=== PATIENT | female | born 1970 | race Caucasian/White ===

== ENCOUNTER 2020-07-22 09:23 | Outpatient (REF) | payer OTHER, MEDICAID, SELFPAY ==
--- NOTE | 2020-07-22 09:43 | XR_ITS ---
EXAMINATION: XR PELVIS CLINICAL INFORMATION: Pain. COMPARISON: None TECHNIQUE: AP view of the pelvis. FINDINGS: The bones and soft tissues are normal. No fracture. Sacroiliac and hip joints are normal. Pubic symphysis is normal. There are pelvic phleboliths. No abnormal soft tissue calcifications. XR/XR pelvis 1-2V IMPRESSION: Normal pelvis.
== END 2020-07-22 09:24 | disposition home or self-care (01) ==
LOC: HO.HOSX 09:23
PROVIDERS: PCP Nurse Practitioner Family; Visit Provider Orthopaedic Surgery
DX: M25.552 Pain in left hip (principal); M25.559 Pain in unspecified hip; M70.62 Trochanteric bursitis, left hip; E11.9 Type 2 diabetes mellitus without complications; R10.2 Pelvic and perineal pain
CPT/HCPCS: 20610; 72170; 99212; J1100

== ENCOUNTER → 2020-09-12 13:34 | Outpatient (BNVA) | payer OTHER, MEDICAID, SELFPAY | PROVIDERS: PCP Nurse Practitioner Family; Visit Provider Orthopaedic Surgery | DX: M25.561 Pain in right knee (principal); M25.562 Pain in left knee; M79.7 Fibromyalgia; E11.9 Type 2 diabetes mellitus without complications | CPT/HCPCS: 20610; 99212; J1100 ==

== ENCOUNTER 2021-03-25 16:21 | Emergency (ER) | payer OTHER, MEDICAID, SELFPAY ==
[2021-03-25 16:33] VITALS: BP 119/76; PULSE 120; RESP 16; TEMP 36.8; O2SAT 98; BMI 40.6
[2021-03-25 16:57] LABS: Glucose Urine UA NEG (NEG); Leukocyte Esterase Urine 3+ (NEG); Nitrite Urine NEG (NEG); Specific Gravity - Urine 1.025 (1.005-1.025); UACC Culture Trigger YES; Urine Blood NEG (NEG); Urine Ketones NEG (NEG); Urine Protein NEG (NEG-TRACE)
[2021-03-25 16:59] LABS: Appearance Urine HAZY; Color Urine YELLOW
[2021-03-25 17:10] LABS: Amorphous Sediment Urine TRACE /LPF; Bacteria Urine 2+ /LPF; Mucus Urine 3+ /LPF; RBC Urine 0 /HPF (0); Squamous Epithelial Cell Urine 2+ /LPF; WBC Urine 30-49 /HPF (0-4)
== END 2021-03-25 20:07 | disposition left against medical advice (07) ==
PROVIDERS: Emergency Provider Emergency Medicine
DX: R10.9 Unspecified abdominal pain (principal)
CPT/HCPCS: 81001; 87086; 99282; 99283

== ENCOUNTER 2021-03-26 13:18 | Emergency (ER) | payer OTHER, SELFPAY ==
--- NOTE | ~2021-03-26 | CT_ITS ---
EXAMINATION: CT ABDOMEN AND PELVIS WITH CONTRAST CLINICAL INFORMATION: Clinical concern for bowel obstruction pain. Distention. COMPARISON: Portions of a previous study 03/08/20 TECHNIQUE: Multidetector volumetric images were obtained from the superior aspect of the liver through the pubic symphysis following administration 85 mL of Omnipaque 350 intravenous contrast. Sagittal and coronal reformatted images were obtained on the technologist's workstation. Oral contrast: No This CT examination was performed using dose optimization techniques as appropriate, variously including the following: *Automated exposure control *Adjustment of mA and/or kV according to patient size (this includes techniques or standardized protocols for targeted exams where dose is matched to indication/reason for exam; i.e. 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 There are some scattered loops of small bowel gas. No disproportionate small bowel dilation. No evidence of pneumoperitoneum. LUNG BASES: No suspicious abnormality in the visualized portions of the chest. There may be tiny amounts of gas within some of the right internal mammary veins. This is likely due to the contrast administration LIVER, GALLBLADDER, AND BILIARY TREE: The liver contour is smooth. There is diffuse fatty change. No suspicious focal lesion. The gallbladder is likely surgically absent. No biliary dilation. PANCREAS: Within normal limits SPLEEN: Normal ADRENAL GLANDS: Normal KIDNEYS AND URETERS: There is no dilation of the urinary collecting system on either side. The renal contours are abnormal. There is cortical loss greatest in the lateral upper left kidney. There are bilateral renal calcifications. The largest in the medial interpolar right kidney measures 1.0 cm and is 13.5 cm from the skin. No suspicious renal mass. The nephrograms are symmetric BLADDER: The bladder is not well-distended. No focal abnormality GASTROINTESTINAL TRACT: Gas and fecal residue throughout the colon. No definite pericolonic fat stranding. The appendix is normal. There is no small bowel dilation. No suspicious omental or mesenteric mass. ABDOMINAL WALL: No significant hernia is appreciated. LYMPH NODES: There are no measurably enlarged abdominal or pelvic lymph nodes. There is no free intraperitoneal fluid. VASCULAR: There is no abdominal aortic aneurysm. The portal vein enhances. PELVIC VISCERA: The uterus appears within normal limits. No suspicious adnexal mass or collection. OSSEOUS STRUCTURES: No suspicious focal lesion. CT/CT abdomen pelvis w con IMPRESSION: No evidence of small bowel obstruction or abscess. Multiple bilateral renal calculi. Bilateral renal cortical scarring. Fatty liver
[2021-03-26 14:05] VITALS: O2SAT 100; BMI 33.4
[2021-03-26 14:21] LABS: MANUAL DIFF FLAG NO
[2021-03-26 14:22] LABS: Glucose Urine UA 250 MG/DL (NEG); Leukocyte Esterase Urine 1+ (NEG); Nitrite Urine NEG (NEG); Specific Gravity - Urine >= 1.030 (1.005-1.025); UACC Culture Trigger YES; Urine Blood NEG (NEG); Urine Ketones NEG (NEG); Urine Protein 1+ MG/DL (NEG-TRACE)
[2021-03-26 14:22] LABS: Basophils Absolute Auto 0.1 X10*3/uL (0.0-0.2); Basophils Percent Auto 0.5 % (0-2); Eosinophils Absolute Auto 0.3 X10*3/uL (0.0-0.4); Eosinophils Percent Auto 2.4 % (0-4); Hematocrit 41.7 % (37-47); Hemoglobin 13.8 g/dl (12.0-16.0); Imm Gran Abs Auto 0.06 X10*3/uL (0.00-0.03); Imm Gran Pct Auto 0.5 % (0.0-0.4); Lymphocytes Absolute Auto 2.1 X10*3/uL (1.2-4.9); Lymphocytes Percent Auto 16.7 % (20-40); Mean Corpuscular HGB Conc 33.1 g/dl (31.0-35.0); Mean Corpuscular Hemoglobin 28.3 pg (27.0-33.0); Mean Corpuscular Volume 85.5 fL (80-98); Mean Platelet Volume 12.3 fL (9.4-12.3); Monocytes Absolute Auto 0.8 X10*3/uL (0.1-1.2); Monocytes Percent Auto 6.1 % (2-11); Neutrophils Absolute Auto 9.4 X10*3/uL (2.0-8.3); Neutrophils Percent Auto 73.8 % (45-73); Platelet Count 202 X10*3/uL (160-400); Red Blood Count 4.88 X10*6/uL (4.20-5.50); Red Cell Distribution Width 13.4 % (11.0-16.0); White Blood Count 12.7 X10*3/uL (4.8-10.8)
[2021-03-26 14:23] LABS: Appearance Urine CLOUDY; Color Urine YELLOW
--- NOTE | 2021-03-26 14:31 | ED_ITS ---
HPI - Abdominal Pain General Chief Complaint: Abdominal Pain Stated Complaint: stomach pains Time Seen by Provider: 03/26/21 14:04 Source: patient Mode of arrival: ambulatory Limitations: language barrier (Bahraini speaking only, certified court/medical interpreter used) History of Present Illness HPI narrative: 51-year-old female who presents emergency department for evaluation of abdominal pain x4 days. Patient states that the pain started 4 days prior came on gradually got progressively worse. She describes the pain as a constant burning sensation and points to her entire abdomen when asked to localize the pain. She states the pain is 10/10 at its worst. She had similar pain 6 months prior for this pain. She denied fever or chills. She states that she had constant nausea and vomited at least 4 times yesterday and today. She has had 2 days of loose, watery diarrheal stool, 5 stools per day with no blood in the stools. She states that she is feeling very weak and fatigued. She denied chest pain, shortness of breath, dyspnea on exertion, frequency, urgency or dysuria. The patient has not had a COVID-19 infection during this pandemic. She has not had a COVID-19 vaccination. The patient states that the last time she was hospitalized for abdominal pain she did receive morphine without any allergic reaction or side effects. Related Data Home Medications Medication Instructions Recorded Confirmed insulin glargine 100 unit/mL 20 unit SUBCUT DAILY 07/22/20 07/22/20 subcutaneous solution (Lantus U-100 Insulin) metformin 500 mg tablet 500 mg PO DAILY 07/22/20 07/22/20 insulin glargine 100 unit/mL 10 unit SUBCUT BID 09/12/20 subcutaneous solution (Lantus U-100 Insulin) Previous Rx's Medication Instructions Recorded morphine 15 mg immediate release 15 mg PO Q4-6H PRN #10 tab 03/26/21 tablet Allergies Allergy/AdvReac Type Severity Reaction Status Date / Time acetaminophen [Percocet] Allergy Unknown Unknown Verified 09/12/20 13:38 oxycodone [From PERCOCET] Allergy Unknown N/V Verified 09/12/20 13:38 tramadol Allergy Unknown Unknown Verified 09/12/20 13:38 Review of Systems Review of Systems Yes all other systems are reviewed and are negative Physical Exam Vital Signs: Vital Signs: Last Vital Signs Temp 97.7 F 03/26/21 15:03 Pulse 101 H 08/08/21 15:03 Resp 20 03/26/21 15:03 BP 115/69 03/26/21 15:03 Pulse Ox 95 03/26/21 15:03 Body Mass Index 33.4 Const: General: cooperative and no acute distress Nutritional Appearance: obese Orientation/consciousness: oriented to person and oriented to place Limitations: no limitations HENMT: Head: Yes normal to inspection, Yes normocephalic and Yes atraumatic Ears: external ears normal General nose exam: Normal external nose present Face and sinus: Yes normal facial exam Mouth: Normal oral and palatal mucosa present Throat: Yes posterior oropharynx normal Eyes: General: appearance normal, both eyes and all related structures Pupils: Equal, round and reactive pupils present Neck: Neck: Yes normal visual inspection, Yes no lymphadenopathy, Yes trachea midline and Yes supple Chest: Chest palpation & inspection: normal inspection of the chest and normal palpation of entire chest wall Resp: Effort & Inspection: normal respiratory effort and able to speak in complete sentences Auscultation: clear to auscultation bilaterally Cardio: Rate: regular rate Rhythm: regular rhythm Heart sounds: S1 normal heart sound present, S2 normal heart sound present and no murmurs GI: Inspection: Yes distended and Yes obesity Palpation (GI): Soft to palpation, Tenderness to palpation present (GI) in the epigastrum (Moderate), in the LLQ (Moderate) and suprapubicly (Moderate) and no guarding Auscultation: High-pitched bowel sounds present : General: Yes no CVA tenderness Back/Spine/Pelvis: Back: no CVA tenderness Skin: General skin exam: no rashes or lesions noted Neuro: General: oriented to person and oriented to place Cranial nerves: Y es CN's II-XII intact bilaterally and Yes Equal, round and reactive pupils present Cognition (Neuro): normal cognition Motor exam (neuro): 5/5 motor strength present throughout Extrem: General: Yes normal to inspection Psych: Appearance: grossly normal Speech and movement: Normal speech and movement present Affect: normal affect Attitude: cooperative Thought process: Normal thought process present Thought content: Normal thought content present Course Course Course Narrative: 51-year-old female who presents emergency department for evaluation of 4 days of abdominal pain associated with nausea vomiting and diarrhea. Patient's abdominal pain was diffuse. The patient does also appear to be distended. I order laboratory evaluation, CT scan of the abdomen pelvis with IV contrast. The patient was treated with morphine 4 mg IV and Zofran 4 mg IV. She was also given normal saline IV x1 L. 1606: The patient's laboratory evaluation [place] [address]. Patient has an elevated glucose of 383 and a low bicarb of 19. She has a slight elevation in her AST, ALT and alk-phos of 36, 32 and 125. Urine microscopic revealed 0 rbc's, 50-75 WBCs, 3+ squamous cells, 3+ bacteria. This is a contaminated specimen and I do not think that she has urinary tract infection as the cause for pain. The patient had only minimal relief of her pain with IV morphine therefore she was ordered to get a 2nd dose of morphine 4 mg IV. 1636: The patient's CT abd/pelvis was unremarkable and did not reveal a clear cause for the patient's pain. Her tenderness is now more localized in the epiga stric area and I supsect that her pain is secondary to gastritis. She was ordered to take Maalox 30 cc, Visc Lido 10 cc and Donnatol 10 cc. She will be disharged with an Rx for Morphine 4 mg every 4-6 hours as needed for pain. MDM - Abdominal Pain Lab Data Result diagrams: 03/26/21 14:17 03/26/21 14:17 Labs: Lab Results 03/26/21 03/26/21 03/26/21 Range/Units 14:12 14:17 14:17 WBC 12.7 H (4.8-10.8) X10*3/uL RBC 4.88 (4.20-5.50) X10*6/uL Hgb 13.8 (12.0-16.0) g/dl Hct 41.7 (37-47) % MCV 85.5 (80-98) fL MCH 28.3 (27.0-33.0) pg MCHC 33.1 (31.0-35.0) g/dl RDW 13.4 (11.0-16.0) % Plt Count 202 (160-400) X10*3/uL MPV 12.3 (9.4-12.3) fL Immature Gran % (Auto) 0.5 H (0.0-0.4) % Neut % (Auto) 73.8 H (45-73) % Lymph % (Auto) 16.7 L (20-40) % Edgar % (Auto) 6.1 (2-11) % Eos % (Auto) 2.4 (0-4) % Baso % (Auto) 0.5 (0-2) % Lymph # (Auto) 2.1 (1.2-4.9) X10*3/uL Edgar # (Auto) 0.8 (0.1-1.2) X10*3/uL Eos # (Auto) 0.3 (0.0-0.4) X10*3/uL Baso # (Auto) 0.1 (0.0-0.2) X10*3/uL Abs Immat Gran (auto) 0.06 H (0.00-0.03) X10*3/uL Absolute Neuts (auto) 9.4 H (2.0-8.3) X10*3/uL Absolute Nucleated RBC 0.000 (0.0-0.012) X10*3/uL Nucleated RBC % (auto) 0.0 (0.0-0.2) /100WBC Sodium 136 (135-145) mmol/L Potassium 4.6 (3.3-5.1) mmol/L Chloride 106 (96-108) mmol/L Carbon Dioxide 19 L (22-29) mmol/L Anion Gap 16 (12-20) BUN 12 (9-16) mg/dL Creatinine 0.93 (0.5-1.4) mg/dL Estim Creat Clear Calc 87.4 Estimated GFR > 60 POC Glucose (60-115) mg/dL Random Glucose 383 H* (60-115) mg/dL Calcium 8.9 (8.4-10.2) mg/dL Total Bilirubin 0.5 (0.0-1.0) mg/dL AST 36 H (5-31) U/L ALT 32 H (0-31) U/L Alkaline Phosphatase 125 H (39-117) U/L Total Protein 7.5 (6.5-8.0) g/dL Albumin 4.1 (3.5-5.0) g/dL Lipase 50 (8-78) U/L Urine Color YELLOW Urine Appearance CLOUDY Urine pH 6.0 (5.0-8.0) Ur Specific [place] >= 1.030 H (1.005-1.025) Urine Protein 1+ H (NEG-TRACE) MG/DL Urine Glucose (UA) 250 H (NEG) MG/DL Urine Ketones NEG (NEG) MG/DL Urine Blood NEG (NEG) Urine Nitrite NEG (NEG) Ur Leukocyte Esterase 1+ H (NEG) Urine RBC 0 (0) /HPF Urine WBC 50-75 H (0-4) /HPF Ur Squamous Epith Cells 3+ /LPF Urine Bacteria 2+ /LPF Coronavirus (PCR) (Negative) Influenza Type A (PCR) (Negative) Influenza Type B (PCR) (Negative) RSV RNA Qual (PCR) (Negative) 03/26/21 03/26/21 Range/Units 14:36 16:22 WBC (4.8-10.8) X10*3/uL RBC (4.20-5.50) X10*6/uL Hgb (12.0-16.0) g/dl Hct (37-47) % MCV (80-98) fL MCH (27.0-33.0) pg MCHC (31.0-35.0) g/dl RDW (11.0-16.0) % Plt Count (160-400) X10*3/uL MPV (9.4-12.3) fL Immature Gran % (Auto) (0.0-0.4) % Neut % (Auto) (45-73) % Lymph % (Auto) (20-40) % Edgar % (Auto) (2-11) % Eos % (Auto) (0-4) % Baso % (Auto) (0-2) % Lymph # (Auto) (1.2-4.9) X10*3/uL Edgar # (Auto) (0.1-1.2) X10*3/uL Eos # (Auto) (0.0-0.4) X10*3/uL Baso # (Auto) (0.0-0.2) X10*3/uL Abs Immat Gran (auto) (0.00-0.03) X10*3/uL Absolute Neuts (auto) (2.0-8.3) X10*3/uL Absolute Nucleated RBC (0.0-0.012) X10*3/uL Nucleated RBC % (auto) (0.0-0.2) /100WBC Sodium (135-145) mmol/L Potassium (3.3-5.1) mmol/L Chloride (96-108) mmol/L Carbon Dioxide (22-29) mmol/L Anion Gap (12-20) BUN (9-16) mg/dL Creatinine (0.5-1.4) mg/dL Estim Creat Clear Calc Estimated GFR POC Glucose 267 H (60-115) mg/dL Random Glucose (60-115) mg/dL Calcium (8.4-10.2) mg/dL Total Bilirubin (0.0-1.0) mg/dL AST (5-31) U/L ALT (0-31) U/L Alkaline Phosphatase (39-117) U/L Total Protein (6.5-8.0) g/dL Albumin (3.5-5.0) g/dL Lipase (8-78) U/L Urine Color Urine Appearance Urine pH (5.0-8.0) Ur Specific [place] (1.005-1.025) Urine Protein (NEG-TRACE) MG/DL Urine Glucose (UA) (NEG) MG/DL Urine Ketones (NEG) MG/DL Urine Blood (NEG) Urine Nitrite (NEG) Ur Leukocyte Esterase (NEG) Urine RBC (0) /HPF Urine WBC (0-4) /HPF Ur Squamous Epith Cells /LPF Urine Bacteria /LPF Coronavirus (PCR) NEGATIVE (Negative) Influenza Type A (PCR) NEGATIVE (Negative) Influenza Type B (PCR) NEGATIVE (Negative) RSV RNA Qual (PCR) NEGATIVE (Negative) Discharge Plan Discharge Clinical Impression: Gastritis Qualifiers: Gastritis type: unspecified gastritis Chronicity: acute Gastritis bleeding: without bleeding Qualified Code(s): K29.00 - Acute gastritis without bleeding Patient Disposition: Home, Self-Care Instructions: Gastritis (ED) Additional Instructions: Take Tylenol 500 mg pills, 2 pills every 4-6 hours as needed for pain. For pain not relieved by Tylenol take Morphine 15 mg pills, 1 pill every 4-6 hours as needed for pain. Follow up with your doctor in 2 days. Return to the ED if your symptoms get worse or if you develop any new symptoms that are concerning to you. Prescriptions: New morphine 15 mg tablet 15 mg PO Q4-6H PRN (Reason: pain) Qty: 10 RF: 0 No Action Lantus U-100 Insulin 100 unit/mL solution 20 unit subcut DAILY RF: 0 metformin 500 mg tablet 500 mg PO DAILY RF: 0 PMFSH Past Medical History PMFSH Narrative: Past medical history: Diabetes, hypertension, high cholesterol, asthma, fibromyalgia. Past surgical history: Cholecystectomy, C- section x4, carpal tunnel release, breast reduction-elective. Social history: The patient is . She denies tobacco, alcohol and drug use. Medical History Chronic asthma Diabetes Fibromyalgia Hypertension Surgical History History of carpal tunnel release Hx of breast reduction, elective Social History Social History (Updated 09/12/20 @ 13:38 by Tita Belle Marissa) Alcohol intake: never Advance Directives: No Advance Directives Information Provided: Yes Current occupational status: unemployed Current occupation: right handed
[2021-03-26 14:33] LABS: Bacteria Urine 2+ /LPF; RBC Urine 0 /HPF (0); Squamous Epithelial Cell Urine 3+ /LPF; WBC Urine 50-75 /HPF (0-4)
[2021-03-26] MEDS: 0.9 % Sodium Chloride 1,000 ML 999 ML IV (14:49)
[2021-03-26] MEDS: Morphine Sulfate 4 MG/ML CARTRIDGE IVPUSH ×2 (14:49→16:16)
[2021-03-26 14:53] LABS: Alanine Aminotransferase 32 U/L (0-31); Albumin Level 4.1 g/dL (3.5-5.0); Alkaline Phosphatase 125 U/L (39-117); Anion Gap 16 (12-20); Aspartate Amino Transferase 36 U/L (5-31); Bilirubin Total 0.5 mg/dL (0.0-1.0); Blood Urea Nitrogen 12 mg/dL (9-16); Calcium 8.9 mg/dL (8.4-10.2); Carbon Dioxide 19 mmol/L (22-29); Chloride 106 mmol/L (96-108); Creatinine Clr Calc Pharmacy 87.4; Estimated Glomerular Filt Rate > 60; Glucose Random 383 mg/dL (60-115); Potassium 4.6 mmol/L (3.3-5.1); Sodium 136 mmol/L (135-145); Total Protein 7.5 g/dL (6.5-8.0)
[2021-03-26 15:03] VITALS: BP 115/69; PULSE 101; RESP 20; TEMP 36.5; O2SAT 95
[2021-03-26 15:06] LABS: Lipase 50 U/L (8-78)
[2021-03-26 15:39] LABS: Influenza A PCR NEGATIVE (Negative); Influenza B PCR NEGATIVE (Negative); Resp Syncy Virus RNA Qual PCR NEGATIVE (Negative); SARS COV2 PCR INHOUSE NEGATIVE (Negative)
[2021-03-26] MEDS: iohexoL 350 MG/ML 100 ML INFUS..BTL IV (15:50)
[2021-03-26 16:25] LABS: Glucose, Whole Blood 267 mg/dL (60-115)
[2021-03-26] MEDS: Magnesium Hydrox/Alum Hydrox 30 ML ORAL.SUSP PO (17:02)
[2021-03-26] MEDS: PHENobarb/Hyoscy/Atropine/Scop 10 ML ELIXIR PO (17:03)
[2021-03-26] MEDS: Lidocaine HCl Viscous 2 % 15 ML SOLUTION 10 ML PO (17:04)
== END 2021-03-26 17:42 | disposition home or self-care (01) ==
PROVIDERS: Emergency Provider Emergency Medicine Emergency Medical Services
DX: K29.00 Acute gastritis without bleeding (principal); Z20.822 Contact with and (suspected) exposure to COVID-19; R53.1 Weakness; E11.9 Type 2 diabetes mellitus without complications; I10 Essential (primary) hypertension; Z79.4 Long term (current) use of insulin
CPT/HCPCS: 0241U; 36415; 74177; 80053; 81001; 82947; 83690; 85025; 96361; 96374; 96375; 96376; 99284; J2270; J2405; Q9967

== ENCOUNTER 2021-05-08 19:12 | Emergency (ER) | payer OTHER, SELFPAY ==
[2021-05-08 19:43] VITALS: BP 166/78; PULSE 106; RESP 16; TEMP 36.5; O2SAT 98; BMI 41.1
--- NOTE | 2021-05-08 21:19 | ED_ITS ---
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 Mode of arrival: ambulatory Limitations: no limitations History of Present Illness MD elicited complaint: headache and migraine Pertinent past history: migraines Onset (ago): hour(s) (6 ) Onset description: gradually Location: left Severity: similar to previous episodes Quality & Timing: throbbing Exacerbating factors: light and noise Relieving factors: rest and dark room Context: occurred at rest Associated symptoms: nausea and photophobia Treatments prior to arrival: migraine medication Related Data Home Medications Medication Instructions Recorded Confirmed insulin glargine 100 unit/mL 20 unit SUBCUT DAILY 07/22/20 07/22/20 subcutaneous solution (Lantus U-100 Insulin) metformin 500 mg tablet 500 mg PO DAILY 07/22/20 07/22/20 insulin glargine 100 unit/mL 10 unit SUBCUT BID 09/12/20 subcutaneous solution (Lantus U-100 Insulin) Previous Rx's Medication Instructions Recorded morphine 15 mg immediate release 15 mg PO Q4-6H PRN #10 tab 03/26/21 tablet tlvhowdnfi-hbqnzrjxymian-uahtnvny 1 tab PO Q6H PRN #20 tab 05/08/21 50 mg-325 mg-40 mg tablet cyclobenzaprine 10 mg tablet 10 mg PO TID PRN #14 tab 05/08/21 ondansetron 4 mg disintegrating 4 mg PO Q8H PRN #20 tab 05/08/21 tablet Allergies Allergy/AdvReac Type Severity Reaction Status Date / Time acetaminophen [Percocet] Allergy Unknown Unknown Verified 05/08/21 19:50 oxycodone [From PERCOCET] Allergy Unknown N/V Verified 05/08/21 19:50 tramadol Allergy Unknown Unknown Verified 05/08/21 19:50 Review of Systems Review of Systems: Constitutional : No Fever, No Chills, No Fatigue ENT/Mouth : No sore throat, No Rhinorrhea Eyes: No Eye Pain, No Swelling, No Redness Cardiovascular : No Chest Pain, No SOB, No Dyspnea on Exertion Respiratory : No Cough, No Sputum Gastrointestinal : pos Nausea, No Vomiting, No Diarrhea, No abdominal Pain Genitourinary : No Dysuria, No Urinary Frequency, No Hematuria, Musculoskeletal : No joint pain, No Myalgias, No Joint Swelling Skin : No Skin Lesions, No rash Neuro : No Weakness, No Numbness, No Dizziness, positive Headache Psych : No Anxiety/Panic, No Depression Heme/Lymph: No Bruising, No Bleeding,No Lymphadenopathy Endocrine : No Polyuria, No Polydipsia All other systems reviewed and are negative [facility] Past Medical History Attestation statement: The following information was validated with the patient. Medical History Chronic asthma Diabetes Fibromyalgia Hypertension Migraines Surgical History History of carpal tunnel release Hx of breast reduction, elective Social History Social History Alcohol intake: never Patient Tobacco Use Status: Never used Tobacco Advance Directives: No Advance Directives Information Provided: No Current occupational status: unemployed Current occupation: right handed Physical Exam Vital Signs: Vital Signs: Last Vital Signs Temp 97.7 F 05/08/21 19:43 Pulse 106 H 05/08/21 19:43 Resp 16 05/08/21 19:43 BP 166/78 H 05/08/21 19:43 Pulse Ox 98 05/08/21 19:43 Body Mass Index 41.1 Appearance: Alert. Oriented X3. No acute distress. Eyes: Pupils equal, round and reactive to light. photophobia ENT: Pharynx normal. Neck: Normal inspection. Neck supple. no meningeal signs CVS: Normal heart rate and rhythm. Pulses normal. Respiratory: No respiratory distress. Breath sounds normal. Abdomen: Soft and nontender. Skin: Skin warm and dry. Normal skin color. Normal skin turgor. Extremities: No lower extremity edema. No calf ttp Neuro: Oriented X 3. No motor deficit. No sensory deficit. Course Course Course Narrative: feels better stable for DC MDM - Headache MDM Narrative Medical decision making narrative: 51 yo female with DM and headaches comes in with c/o migraine on left side - at this time no fevers, GCS 15, typical migraine will treat with medications and reassess. given typical migraine doubt SAH, no fevers doubt [employer] infection. Lab Data Labs: Lab Results 05/08/21 Range/Units 21:31 POC Glucose 273 H (60-115) mg/dL Discharge Plan Discharge Clinical Impression: Migraine Qualifiers: Migraine type: without aura Status migrainosus presence: without status migrainosus Intractability: not intractable Qualified Code(s): G43.009 - Migraine without aura, not intractable, without status migrainosus Patient Disposition: Home, Self-Care Instructions: Migraine Headache (ED) Additional Instructions: return to ED for any worsening symptoms or concerns Prescriptions: New cyclobenzaprine 10 mg tablet 10 mg PO TID PRN (Reason: muscle spasm) Qty: 14 RF: 0 aeyrycdbkr-hfvtvdpmqdnfp-eejf 50-325-40 mg tablet 1 tab PO Q6H PRN (Reason: pain) Qty: 20 RF: 0 ondansetron 4 mg tablet,disintegrating 4 mg PO Q8H PRN (Reason: nausea and vomiting) Qty: 20 RF: 0 No Action morphine 15 mg tablet 15 mg PO Q4-6H PRN (Reason: pain) Qty: 10 RF: 0 Lantus U-100 Insulin 100 unit/mL solution 20 unit subcut DAILY RF: 0 metformin 500 mg tablet 500 mg PO DAILY RF: 0 Stand Alone Forms: Work/School Release Print Language: Vietnamese
[2021-05-08 21:37] LABS: Glucose, Whole Blood 273 mg/dL (60-115)
[2021-05-08] MEDS: Metoclopramide HCl 10 MG/2 ML VIAL IM (21:51)
[2021-05-08] MEDS: diphenhydrAMINE HCL 25 MG TABLET 50 MG PO (21:51)
[2021-05-08] MEDS: Ketorolac Tromethamine 60 MG/2 ML VIAL IM (21:52)
[2021-05-08 22:49] VITALS: BP 168/94; PULSE 92; RESP 18; TEMP 36.8; O2SAT 97
[2021-05-08] MEDS: Cyclobenzaprine HCl 10 MG TABLET PO (23:03)
[2021-05-08] MEDS: Butalb/Acetamin/Caff 50/325/40 TABLET 1 TAB PO (23:03)
[2021-05-09 00:20] VITALS: BP 119/76; PULSE 86; RESP 17; TEMP 37.4; O2SAT 98
[2021-05-09 01:46] VITALS: BP 124/79; PULSE 82; RESP 17; O2SAT 98
== END 2021-05-09 01:48 | disposition home or self-care (01) ==
PROVIDERS: Emergency Provider Emergency Medicine
DX: G43.009 Migraine without aura, not intractable, without status migrainosus (principal); Z79.899 Other long term (current) drug therapy
CPT/HCPCS: 82947; 96372; 99284; J1885; J2765; J3030; Q0163

== ENCOUNTER 2021-05-31 07:27 | Outpatient (REF) | payer OTHER, SELFPAY ==
--- NOTE | ~2021-05-31 | XR_ITS ---
EXAMINATION: XR HIP, LEFT CLINICAL INFORMATION: Left hip pain. COMPARISON: Pelvic radiograph dated 07/22/2020. TECHNIQUE: Two views of the left hip. FINDINGS: There is no acute fracture or dislocation. Mild spurring is seen off of the lateral margin of the greater trochanter. The left hip joint and left hemipelvis are intact. There is no acute fracture or dislocation. The soft tissues are unremarkable. XR/XR hip LT min 2V IMPRESSION: Mild degenerative spurring off of the greater trochanter without significant change. No acute abnormality.
== END 2021-05-31 07:28 | disposition home or self-care (01) ==
LOC: HO.HOSX 07:27
PROVIDERS: Visit Provider Physician Assistant
DX: M70.62 Trochanteric bursitis, left hip (principal)
CPT/HCPCS: 20610; 73502; 99212; J1020

== ENCOUNTER 2021-06-13 09:08 | Outpatient (RCR) | payer OTHER, SELFPAY ==
--- NOTE | 2021-06-13 11:00 | MHC.PT.EP ---
[facility] [place] Office [place] Office [place] Office [address] Fay Mcneill [address] [phone] F: [phone] F: [phone] F: [phone] F: [phone] Physical Therapy Plan of Care Date of Evaluation: Date of Surgery: N/A Diagnosis: trochanteric bursitis, left hip Assessment: pt w/ difficulty contributing to subjective part of evaluation. pt's symptoms appear to have lumbar component as pt has reduced sensation throughout L LE and poor discriminatory touch of L foot/ankle. Potential working PT diagnoses include lumbar radiculopathy and L trochanteric bursitis. pt presents to physical therapy with pain, decreased range of motion, decreased strength, impaired functional mobility, impaired postural awareness, and gait deviations. pt is a fair candidate for skilled PT due to age, potential remediation of impairments, typical disease/condition progression and prognosis, comorbidities, and motivation. pt would benefit from tailored strengthening and stretching exercise program, functional training, gait training, postural re-training, neuromuscular re-education, modalities as needed for pain, equipment safety demonstration. Frequency and Duration: The patient will be seen 2x/wk for 6 wks Short Term Goals: pt will be I w/ HEP to promote self-management of condition. pt will improve L hip abduction by 1 MMT grade to promote neutral pelvis w/ ambulation and weight bearing activities. pt will demo proper sitting posture w/ lumbar roll to promote neutral spine w/ seated ADLs. Fci Goals: pt will report a statistically significant improvement in self-reported outcome measure, LEFI, to promote return to PLOF. pt will report <4/10 L hip pain w/ sit to stand transfer to promote improved tolerance for functional mobility. Treatment Plan: Modalities to reduce pain, spasms and effusion. Manual therapy to restore motion and function. Therapeutic exercise to improve strength and flexibility. Neuromuscular re-education for posture and balance. Therapeutic activities to return to functional activities of daily living. Electronically signed by: Vickie Mcdaniel PT, DPT Please sign and return to therapist. Thank you for your referral.
--- NOTE | 2021-07-03 14:31 | MHC.PT.DC ---
[facility] [place] Office [place] Office [place] Office [address] Fay Mcneill [address] [facility] [phone] F: [phone] F: [phone] F: [phone] F: [phone] Physical Therapy Discharge Report Diagnosis: trochanteric bursitis, left hip Date of Surgery: N/A Date of Evaluation: 06/13/21 Date of Discharge: 07/03/21 Treatments to Date: 1 Cancellations to Date: 0 No Shows to Date: 3 Discharge Status: Visit Non-compliance Discharge Summary: The patient had difficulty during subjective aspect of evaluation. She was very vague in regards to what reproduces her pain, where the pain is located, and what helps alleviate the pain. She displayed significant facial grimacing and guarding throughout the objective portion of the evaluation. She only scheduled 3 of the recommended 8 PT visits and no showed all of them. She is discharged from this physical therapy plan of care due to visit non-compliance. Electronically signed by: Vickie Mcdaniel PT, DPT Please sign and return to therapist. Thank you for your referral.
== END 2021-07-03 14:31 | disposition home or self-care (01) ==
LOC: HO.PT 09:08
PROVIDERS: PCP Nurse Practitioner Family; Visit Provider Physician Assistant
DX: M70.62 Trochanteric bursitis, left hip (principal)
CPT/HCPCS: 97162

== ENCOUNTER 2021-09-30 08:52 | Emergency (ER) | payer OTHER, SELFPAY ==
[2021-09-30] VITALS (7 sets, daily range): BP systolic 92–129; BP diastolic 52–80; PULSE 83–100; RESP 18–20; TEMP 36.4–36.6; O2SAT 98–99; BMI 40.8
--- NOTE | ~2021-09-30 | CT_ITS ---
EXAMINATION: CT ABDOMEN AND PELVIS WITH CONTRAST CLINICAL INFORMATION: Epigastric pain. COMPARISON: Portions of a previous study 03/26/21 TECHNIQUE: Multidetector volumetric images were obtained from the superior aspect of the liver through the pubic symphysis following administration 85 mL of Omnipaque 350 intravenous contrast. Sagittal and coronal reformatted images were obtained on the technologist's workstation. Oral contrast: No This CT examination was performed using dose optimization techniques as appropriate, variously including the following: *Automated exposure control *Adjustment of mA and/or kV according to patient size (this includes techniques or standardized protocols for targeted exams where dose is matched to indication/reason for exam; i.e. extremities or head) *Use of iterative reconstruction technique DLP: 921 mGy-cm FINDINGS: LUNG BASES: No suspicious abnormality in the visualized lower chest LIVER, GALLBLADDER, AND BILIARY TREE: The liver contour is smooth. There is generalized fatty change. No suspicious focal lesion. The gallbladder is not identified and may be surgically absent. There is no biliary dilation. PANCREAS: No mass or localized peripancreatic fat stranding. SPLEEN: Within normal limits ADRENAL GLANDS: No suspicious abnormality. The adrenals are relatively small. KIDNEYS AND URETERS: There is minimal prominence of the intrarenal collecting system and ureter on each side. There are numerous bilateral calculi. The largest calculus on the right measures 0.9 cm and is 12.9 cm from the skin. The largest calculus on the left is in the lower pole and measures 0.3 cm and is 16 cm from the skin. The renal contours are irregular with areas of cortical scarring. There is some mild nonspecific perinephric fat stranding. There are numerous pelvic calcifications. These are likely phleboliths. It would be difficult to exclude a punctate distal ureteral calculus. BLADDER: The bladder is not well-distended. No definite abnormality GASTROINTESTINAL TRACT: No localized pericolonic fat stranding. The appendix is normal. There is no small bowel dilation. The stomach is not well evaluated. ABDOMINAL WALL: No significant hernia is appreciated. LYMPH NODES: There are no measurably enlarged abdominal or pelvic lymph nodes. VASCULAR: There is no abdominal aortic aneurysm. The portal vein enhances. There is narrowing of the left common femoral vein and right common femoral vein which could be physiologic. PELVIC VISCERA: No suspicious abnormality OSSEOUS STRUCTURES: No suspicious abnormality. CT/CT abdomen pelvis w con IMPRESSION: There is nonspecific perinephric stranding. Small bilateral renal calculi. Minimal nonspecific fullness of the urinary collecting systems. No abscess or bowel obstruction. Suspect previous cholecystectomy. Fatty change in liver. Fleischner guidelines were followed.
--- NOTE | 2021-09-30 11:15 | ECG_ITS ---
Test Reason : ABDOMINAL PAIN Blood Pressure : / mmHG Vent. Rate : 091 BPM Atrial Rate : 091 BPM P-R Int : 158 ms QRS Dur : 098 ms QT Int : 392 ms P-R-T Axes : 049 028 037 degrees QTc Int : 482 ms Normal sinus rhythm Prolonged QT Abnormal ECG When compared with ECG of 08-MAR-2020 09:37, No significant change was found Referred By: Ryann Gutierrez Electronically Signed By:Aram Bhatti
--- NOTE | 2021-09-30 11:17 | ED_ITS ---
HPI - Abdominal Pain General Chief Complaint: Abdominal Pain Stated Complaint: abd pain Time Seen by Provider: 09/30/21 11:15 History of Present Illness HPI narrative: Patient is a 51-year-old female presents today with having abdominal pain in the epigastric area not associated with chest pain or shortness of breath. No Motrin no Aleve. Has a history of diabetes not affected with food. The pain is dull in nature and has been ongoin for about 4 days. No change in bowel movement. No dizziness. No chest pain or shortness of breath. No fever no chills. Noted change in urination. Passing gas bowel movements normal. No history of abdominal surgery in the past. Positive history of diabetes Related Data Home Medications Medication Instructions Recorded Confirmed insulin glargine 100 unit/mL 20 unit SUBCUT DAILY 07/22/20 07/22/20 subcutaneous solution (Lantus U-100 Insulin) metformin 500 mg tablet 500 mg PO DAILY 07/22/20 07/22/20 insulin glargine 100 unit/mL 10 unit SUBCUT BID 09/12/20 subcutaneous solution (Lantus U-100 Insulin) Previous Rx's Medication Instructions Recorded morphine 15 mg immediate release 15 mg PO Q4-6H PRN #10 tab 03/26/21 tablet cnblyvoydh-clgorivxpksmv-umjqyjry 1 tab PO Q6H PRN #20 tab 05/08/21 50 mg-325 mg-40 mg tablet cyclobenzaprine 10 mg tablet 10 mg PO TID PRN #14 tab 05/08/21 ondansetron 4 mg disintegrating 4 mg PO Q8H PRN #20 tab 05/08/21 tablet Allergies Allergy/AdvReac Type Severity Reaction Status Date / Time acetaminophen [Percocet] Allergy Unknown Unknown Verified 05/31/21 10:27 oxycodone [From PERCOCET] Allergy Unknown N/V Verified 05/31/21 10:27 tramadol Allergy Unknown Unknown Verified 05/31/21 10:27 Review of Systems Review of Systems No fever no chills no cough no congestion or upper respiratory symptoms No diaphoresis Positive abdominal pain All system reviewed otherwise negative Yes all other systems are reviewed and are negative Physical Exam Vital Signs: Vital Signs: Last Vital Signs Temp 98 F 09/30/21 09:06 Pulse 96 09/30/21 14:38 Resp 20 09/30/21 13:11 BP 129/57 L 02/12/22 14:38 Pulse Ox 99 09/30/21 13:52 BMI result Body Mass Index 40.8 Appearance: Alert. Oriented X3. No acute distress. Eyes: Pupils equal, round and reactive to light. ENT: Pharynx normal. Neck: Normal inspection. Neck supple. No lymph nodes noted. No crepitus CVS: Normal heart rate and rhythm. Pulses normal. Normal S1 and S2 Respiratory: No respiratory distress. Breath sounds normal. No Wheezing. No rales Abdomen: Soft and nontender. No rigidity. No distention. good BS x4 Skin: Skin warm and dry. Normal skin color. Normal skin turgor. Extremities: No lower extremity edema. Neurovascular intact to all extremities. No Lacerations. No Rash Neuro: Oriented X 3. No motor deficit. No sensory deficit. Moving all extermities. No slurred speech MDM - Abdominal Pain MDM Narrative Medical decision making narrative: Patient positive abdominal pain in the epigastric area. EKG showed a sinus pattern heart rate was 80 there is no acute ST segment changes patient's EKG is same as prior. Patient's lipase approximately 90 no evidence of pancreatitis patient LFT is baseline. CT scan of the abdomen is currently pending. Medical Records Attestation: I reviewed the patient's medical records. Lab Data Attestation: I reviewed the patient's lab results. Result diagrams: 09/30/21 12:03 09/30/21 15:16 Labs: Lab Results 09/30/21 09/30/21 09/30/21 Range/Units 12:03 15:12 15:16 WBC 9.3 (4.8-10.8) X10*3/uL RBC 4.99 (4.20-5.50) X10*6/uL Hgb 13.9 (12.0-16.0) g/dl Hct 41.8 (37.0-47.0) % MCV 83.8 (80.0-98.0) fL MCH 27.9 (27.0-33.0) pg MCHC 33.3 (31.0-35.0) g/dl RDW 13.2 (11.0-16.0) % Plt Count TNP MPV 12.7 H (9.4-12.3) fL Immature Gran % (Auto) 0.4 (0.0-0.4) % Neut % (Auto) 60.2 (45-73) % Lymph % (Auto) 25.7 (20-40) % [place] % (Auto) 7.9 (2-11) % Eos % (Auto) 5.3 H (0-4) % Baso % (Auto) 0.5 (0-2) % Lymph # (Auto) 2.4 (1.2-4.9) X10*3/uL [place] # (Auto) 0.7 (0.1-1.2) X10*3/uL Eos # (Auto) 0.5 H (0.0-0.4) X10*3/uL Baso # (Auto) 0.1 (0.0-0.2) X10*3/uL Abs Immat Gran (auto) 0.04 H (0.00-0.03) X10*3/uL Absolute Neuts (auto) 5.6 (2.0-8.3) x10*3/uL Absolute Nucleated RBC 0.000 (0.0-0.012) X10*3/uL Nucleated RBC % (auto) 0.0 (0.0-0.2) /100WBC Smear Tech's Comments VERIFIED Sodium 138 (135-145) mmol/L Potassium 4.6 (3.3-5.1) mmol/L Chloride 106 (96-108) mmol/L Carbon Dioxide 25 (22-29) mmol/L Anion Gap 12 (12-20) BUN 9 (9-16) mg/dL Creatinine 0.80 (0.5-1.4) mg/dL Estim Creat Clear Calc 98.7 Estimated GFR > 60 Random Glucose 265 H (60-115) mg/dL Calcium 8.6 (8.4-10.2) mg/dL Total Bilirubin 0.4 (0.0-1.0) mg/dL AST 64 H (5-31) U/L ALT 46 H (0-31) U/L Alkaline Phosphatase 140 H (39-117) U/L Total Protein 6.6 (6.5-8.0) g/dL Albumin 3.8 (3.5-5.0) g/dL Lipase 89 H (8-78) U/L Urine Color YELLOW Urine Appearance CLOUDY Urine pH 6.0 (5.0-8.0) Ur Specific [place] 1.020 (1.005-1.025) Urine Protein NEG (NEG-TRACE) MG/DL Urine Glucose (UA) 500 H (NEG) MG/DL Urine Ketones NEG (NEG) MG/DL Urine Blood TRACE (NEG) Urine Nitrite POS H (NEG) Ur Leukocyte Esterase 1+ H (NEG) Urine RBC 1-4 (0) /HPF Urine WBC 15-29 H (0-4) /HPF Ur Squamous Epith Cells 1+ /LPF Urine Bacteria 3+ /LPF Urine Mucus TRACE /LPF Acetone, Qual (Negative) 09/30/21 Range/Units 15:16 WBC (4.8-10.8) X10*3/uL RBC (4.20-5.50) X10*6/uL Hgb (12.0-16.0) g/dl Hct (37.0-47.0) % MCV (80.0-98.0) fL MCH (27.0-33.0) pg MCHC (31.0-35.0) g/dl RDW (11.0-16.0) % Plt Count MPV (9.4-12.3) fL Immature Gran % (Auto) (0.0-0.4) % Neut % (Auto) (45-73) % Lymph % (Auto) (20-40) % [place] % (Auto) (2-11) % Eos % (Auto) (0-4) % Baso % (Auto) (0-2) % Lymph # (Auto) (1.2-4.9) X10*3/uL [place] # (Auto) (0.1-1.2) X10*3/uL Eos # (Auto) (0.0-0.4) X10*3/uL Baso # (Auto) (0.0-0.2) X10*3/uL Abs Immat Gran (auto) (0.00-0.03) X10*3/uL Absolute Neuts (auto) (2.0-8.3) x10*3/uL Absolute Nucleated RBC (0.0-0.012) X10*3/uL Nucleated RBC % (auto) (0.0-0.2) /100WBC Smear Tech's Comments Sodium (135-145) mmol/L Potassium (3.3-5.1) mmol/L Chloride (96-108) mmol/L Carbon Dioxide (22-29) mmol/L Anion Gap (12-20) BUN (9-16) mg/dL Creatinine (0.5-1.4) mg/dL Estim Creat Clear Calc Estimated GFR Random Glucose (60-115) mg/dL Calcium (8.4-10.2) mg/dL Total Bilirubin (0.0-1.0) mg/dL AST (5-31) U/L ALT (0-31) U/L Alkaline Phosphatase (39-117) U/L Total Protein (6.5-8.0) g/dL Albumin (3.5-5.0) g/dL Lipase (8-78) U/L Urine Color Urine Appearance Urine pH (5.0-8.0) Ur Specific [place] (1.005-1.025) Urine Protein (NEG-TRACE) MG/DL Urine Glucose (UA) (NEG) MG/DL Urine Ketones (NEG) MG/DL Urine Blood (NEG) Urine Nitrite (NEG) Ur Leukocyte Esterase (NEG) Urine RBC (0) /HPF Urine WBC (0-4) /HPF Ur Squamous Epith Cells /LPF Urine Bacteria /LPF Urine Mucus /LPF Acetone, Qual Negative (Negative) Discharge Plan Discharge Clinical Impression: Abdominal pain Patient Disposition: Still a Patient Prescriptions: No Action morphine 15 mg tablet 15 mg PO Q4-6H PRN (Reason: pain) Qty: 10 0RF Rx Instructions: The patient may ask for partial fill cyclobenzaprine 10 mg tablet 10 mg PO TID PRN (Reason: muscle spasm) Qty: 14 0RF pppnkrdznj-jlxypubctokub-gpyd 50-325-40 mg tablet 1 tab PO Q6H PRN (Reason: pain) Qty: 20 0RF ondansetron 4 mg tablet,disintegrating 4 mg PO Q8H PRN (Reason: nausea and vomiting) Qty: 20 0RF Lantus U-100 Insulin 100 unit/mL solution 20 unit subcut DAILY 0RF metformin 500 mg tablet 500 mg PO DAILY 0RF PMFSH Past Medical History Medical History Chronic asthma Diabetes Fibromyalgia Hypertension Migraines Surgical History History of carpal tunnel release Hx of breast reduction, elective Social History Social History Alcohol intake: never Patient Tobacco Use Status: Never used Tobacco Advance Directives: No Advance Directives Information Provided: Yes Current occupational status: unemployed Current occupation: right handed
[2021-09-30 12:09] LABS: Eosinophils Absolute Auto 0.5 X10*3/uL (0.0-0.4); Eosinophils Percent Auto 5.3 % (0-4); Hemoglobin 13.9 g/dl (12.0-16.0); Imm Gran Abs Auto 0.04 X10*3/uL (0.00-0.03); Imm Gran Pct Auto 0.4 % (0.0-0.4); Lymphocytes Absolute Auto 2.4 X10*3/uL (1.2-4.9); MANUAL DIFF FLAG SCAN; Mean Corpuscular Volume 83.8 fL (80.0-98.0); Neutrophils Percent Auto 60.2 % (45-73); PLT CLUMP 1; SCAN SMEAR FLAG 1
[2021-09-30 12:11] LABS: Basophils Absolute Auto 0.1 X10*3/uL (0.0-0.2); Basophils Percent Auto 0.5 % (0-2); Hematocrit 41.8 % (37.0-47.0); Lymphocytes Percent Auto 25.7 % (20-40); Mean Corpuscular HGB Conc 33.3 g/dl (31.0-35.0); Mean Corpuscular Hemoglobin 27.9 pg (27.0-33.0); Mean Platelet Volume 12.7 fL (9.4-12.3); Monocytes Absolute Auto 0.7 X10*3/uL (0.1-1.2); Monocytes Percent Auto 7.9 % (2-11); Neutrophils Absolute Auto 5.6 x10*3/uL (2.0-8.3); Red Blood Count 4.99 X10*6/uL (4.20-5.50); Red Cell Distribution Width 13.2 % (11.0-16.0)
[2021-09-30 12:28] LABS: White Blood Count 9.3 X10*3/uL (4.8-10.8)
[2021-09-30 12:30] LABS: SLIDE REVIEW VERIFIED
--- NOTE | 2021-09-30 12:32 | PC.NURSE ---
unable to get iv. meds given as soon as iv started.
[2021-09-30] MEDS: ondansetron HCL 4 MG/2 ML VIAL IVPUSH (12:33)
[2021-09-30] MEDS: Magnesium Hydrox/Alum Hydrox 30 ML ORAL.SUSP PO (12:33)
[2021-09-30] MEDS: 0.9 % Sodium Chloride 1,000 ML 999 ML IV ×2 (12:33→13:55)
[2021-09-30] MEDS: HYDROmorphone HCl 0.5 MG/0.5 ML SYRINGE IVPUSH ×2 (13:10→14:37)
--- NOTE | 2021-09-30 13:11 | PC.NURSE ---
Ok to give dilaudid, ,BP soft per Dr Gutierrez, will order additonal IV fluids Phelbotomy called for hemolyzed labs
--- NOTE | 2021-09-30 14:29 | PC.NURSE ---
iv hung at 1355 after 1st bag complete
[2021-09-30 15:33] LABS: Appearance Urine CLOUDY; Color Urine YELLOW; Glucose Urine UA 500 MG/DL (NEG); Leukocyte Esterase Urine 1+ (NEG); Nitrite Urine POS (NEG); UACC Culture Trigger YES; Urine Blood TRACE (NEG); Urine Ketones NEG (NEG); Urine Protein NEG (NEG-TRACE)
[2021-09-30 15:36] LABS: Acetone, serum QL Negative (Negative)
[2021-09-30 15:43] LABS: Bacteria Urine 3+ /LPF; Mucus Urine TRACE /LPF; Squamous Epithelial Cell Urine 1+ /LPF
[2021-09-30 15:46] LABS: Alanine Aminotransferase 46 U/L (0-31); Albumin Level 3.8 g/dL (3.5-5.0); Alkaline Phosphatase 140 U/L (39-117); Anion Gap 12 (12-20); Aspartate Amino Transferase 64 U/L (5-31); Bilirubin Total 0.4 mg/dL (0.0-1.0); Blood Urea Nitrogen 9 mg/dL (9-16); Calcium 8.6 mg/dL (8.4-10.2); Carbon Dioxide 25 mmol/L (22-29); Chloride 106 mmol/L (96-108); Creatinine Clr Calc Pharmacy 98.7; Estimated Glomerular Filt Rate > 60; Glucose Random 265 mg/dL (60-115); Lipase 89 U/L (8-78); Potassium 4.6 mmol/L (3.3-5.1); Sodium 138 mmol/L (135-145); Total Protein 6.6 g/dL (6.5-8.0)
[2021-09-30] MEDS: iohexoL 350 MG/ML 100 ML INFUS..BTL IV (16:13)
[2021-09-30] MEDS: Nitrofurantoin Monohyd/M-Cryst 100 MG CAPSULE PO (16:57)
--- NOTE | 2021-09-30 17:54 | ECG_ITS ---
Test Reason : ABD PAIN Blood Pressure : / mmHG Vent. Rate : 086 BPM Atrial Rate : 086 BPM P-R Int : 164 ms QRS Dur : 100 ms QT Int : 398 ms P-R-T Axes : 028 007 019 degrees QTc Int : 476 ms Normal sinus rhythm with sinus arrhythmia Normal ECG When compared with ECG of 30-SEP-2021 11:34, No significant change was found Referred By: Avni Brady Electronically Signed By:Aram Bhatti
[2021-09-30 19:52] LABS: Troponin-I High Sensitivity < 3.5 ng/L (<3.5-17.0)
== END 2021-09-30 20:21 | disposition home or self-care (01) ==
PROVIDERS: Emergency Medicine Emergency Medical Services; Emergency Provider Emergency Medicine
DX: N39.0 Urinary tract infection, site not specified (principal); R10.9 Unspecified abdominal pain; E11.9 Type 2 diabetes mellitus without complications; I10 Essential (primary) hypertension; Z79.4 Long term (current) use of insulin
CPT/HCPCS: 36415; 74177; 80053; 81001; 82009; 83690; 84484; 85025; 87086; 87088; 87186; 93005; 96361; 96374; 96375; 96376; 99284; J1170; J2405; Q9967

== ENCOUNTER → 2021-11-13 12:01 | Outpatient (BNVA) | payer OTHER, SELFPAY | PROVIDERS: PCP Internal Medicine; Visit Provider Orthopaedic Surgery | DX: M79.7 Fibromyalgia (principal); M25.561 Pain in right knee; M25.562 Pain in left knee; M54.16 Radiculopathy, lumbar region | CPT/HCPCS: 20610; 99212; J1100 ==

== ENCOUNTER 2021-12-13 20:49 | Emergency (ER) | payer OTHER, SELFPAY ==
--- NOTE | 2021-12-13 21:58 | PC.NURSE ---
called from triage, no answer multiple call outs
== END 2021-12-13 23:12 | disposition left against medical advice (07) ==
LOC: HO.ED 23:11
PROVIDERS: Emergency Provider Emergency Medicine; PCP Internal Medicine
DX: M54.9 Dorsalgia, unspecified (principal)

== ENCOUNTER 2021-12-14 08:13 | Emergency (ER) | payer OTHER, SELFPAY ==
[2021-12-14 08:27] VITALS: BP 121/85; PULSE 89; RESP 20; TEMP 36.6; O2SAT 97; BMI 42.0
--- NOTE | 2021-12-14 08:56 | ED.GENADULT ---
HPI - General Adult General Chief complaint: Back Pain/Injury Stated complaint: back pain Time Seen by Provider: 12/14/21 08:56 Source: patient Mode of arrival: ambulatory Limitations: no limitations History of Present Illness HPI narrative: Patient is a 51 year old female presenting to the emergency department today with back pain. Patient states that she has had left sided back pain for a couple days and it doesn't seem to be getting better. Patient denies any dizziness, lightheadedness, abdominal pain, nausea, vomiting, fever, chills, blurry vision, double vision, loss of vision, chest pain, difficulty breathing, shortness of breath, night sweats, pain with urination, increased urinary frequency, increased urinary urgency, blood in her urine or stool, syncope or a near syncopal episode, recent trauma or falls, bowel incontinence, bladder incontinence, bowel retention, bladder retention, or any other complaints at this time. Onset (ago): day(s) Location: back Radiation: non-radiation Severity: mild Severity scale (1-10): 3 Quality: dull Pain Consistency: constant Relieving factors: none Exacerbating factors: none Associated symptoms: denies other symptoms Treatments prior to arrival: none Related Data Home Medications Medication Instructions Recorded Confirmed insulin glargine 100 unit/mL 20 unit SUBCUT DAILY 07/22/20 07/22/20 subcutaneous solution (Lantus U-100 Insulin) metformin 500 mg tablet 500 mg PO DAILY 07/22/20 07/22/20 insulin glargine 100 unit/mL 10 unit SUBCUT BID 09/12/20 subcutaneous solution (Lantus U-100 Insulin) Previous Rx's Medication Instructions Recorded morphine 15 mg immediate release 15 mg PO Q4-6H PRN #10 tab 03/26/21 tablet lvpzndenoi-ldmjerqsmfbov-ungkfcmq 1 tab PO Q6H PRN #20 tab 05/08/21 50 mg-325 mg-40 mg tablet cyclobenzaprine 10 mg tablet 10 mg PO TID PRN #14 tab 05/08/21 ondansetron 4 mg disintegrating 4 mg PO Q8H PRN #20 tab 05/08/21 tablet nitrofurantoin 100 mg PO BID #20 cap 09/30/21 monohydrate/macrocrystals 100 mg capsule (Macrobid) omeprazole magnesium 20 mg 20 mg PO BID #30 tab 09/30/21 tablet,delayed release (Prilosec OTC) cephalexin 500 mg capsule 500 mg PO Q6H 7 Days #28 cap 12/14/21 cyclobenzaprine 10 mg tablet 10 mg PO TID PRN 7 Days #21 tab 12/14/21 Allergies Allergy/AdvReac Type Severity Reaction Status Date / Time acetaminophen [Percocet] Allergy Unknown Unknown Verified 11/13/21 12:21 oxycodone [From PERCOCET] Allergy Unknown N/V Verified 11/13/21 12:21 tramadol Allergy Unknown Unknown Verified 11/13/21 12:21 Review of Systems Constitutional: Constitutional: Reports no additional constitutional complaints, Denies chills, Denies fever(s) and Denies night sweats Eyes: Eyes: Reports no additional eye complaints, Denies blurry vision, Denies change in vision, Denies diplopia, Denies eye discharge, Denies loss of vision and Denies eye pain ENT: Denies dizziness Cardiovascular: Cardiovascular: Reports no additional cardiovascular complaints, Denies chest pain, Denies lightheadedness, Denies Loss of Consciousness and Denies dyspnea Respiratory: Respiratory: Reports no additional respiratory complaints and Denies dyspnea Gastrointestinal: Gastrointestinal: Reports no additional gastrointestinal complaints, Denies abdominal pain, Denies melena, Denies hematochezia, Denies change in bowel habits and Denies change in stool character Genitourinary: Genitourinary: Denies hematuria, Denies urinary frequency, Denies dysuria, Denies urinary incontinence, Denies urinary hesitancy and Denies urinary urgency Musculoskeletal: Musculoskeletal: Reports no additional musculoskeletal complaints, Reports back pain, Denies numbness and Denies tingling Neurologic: Denies dizziness, Denies loss of vision, Denies numbness and Denies tingling Psychiatric: Psychiatric: Reports no additional psychiatric complaints Endocrine: Endocrine: Reports no additional endocrine complaints Hematologic/Lymphatic: Hematologic/Lymphatic: Reports no additional hematologic/lymphatic complaints Allergic/Immunologic: Allergic/Immunologic: Reports no additional allergic/immunologic complaints PMFSH Past Medical History Attestation statement: The following information was validated with the patient. Source: old records reviewed Medical History Chronic asthma Diabetes Fibromyalgia Hypertension Migraines Surgical History History of carpal tunnel release Hx of breast reduction, elective Social History Social History Alcohol intake: never Patient Tobacco Use Status: Never used Tobacco Advance Directives: No Advance Directives Information Provided: Yes Patient : No Current occupational status: unemployed Current occupation: right handed Physical Exam ED Vital Signs: Vital Signs - 24 hr 12/14/21 08:27 Temperature 98 F Pulse Rate 89 Respiratory Rate 20 Blood Pressure 121/85 Pulse Oximetry 97 BMI result Body Mass Index 42.0 Const General: cooperative, no acute distress, alert and awake Nutritional Appearance: well nourished Orientation/consciousness: patient oriented x3 Limitations: no limitations HENMT Head: Yes normal to inspection and Yes atraumatic Ears: hearing grossly normal bilaterally and external ears normal General nose exam: Normal external nose present, no nasal discharge noted and no epistaxis Face and sinus: Yes normal facial exam, No abrasion and No laceration Mouth: Normal oral and palatal mucosa present, no drooling and no muffled voice Eyes General: appearance normal, both eyes and all related structures Periorbital: periorbital findings normal Eyelids: Yes eyelids normal Conjunctivae: conjunctivae normal Pupils: Equal, round and reactive pupils present EOM: EOMs intact bilaterally Neck Neck: Yes normal visual inspection, Yes full ROM and Yes no lymphadenopathy Chest Chest palpation & inspection: normal inspection of the chest Resp Effort & Inspection: normal respiratory effort and able to speak in complete sentences Auscultation: clear to auscultation bilaterally Cardio Rate: regular rate Rhythm: regular rhythm GI Inspection: Yes normal to inspection General: Yes no CVA tenderness Back/Spine/Pelvis Back: no CVA tenderness Cervical Spine: normal cervical lordosis Thoracic/Lumbar Spine: thoracic and lumbar spine normal to inspection Pelvis: no pain with anterior-posterior compression Neuro General: patient oriented x3 and moves all extremities Cranial nerves: Yes Equal, round and reactive pupils present Cognition (Neuro): normal cognition Motor exam (neuro): 5/5 motor strength present throughout Sensory Exam: Normal double simultaneous stimulation for sensation Coordination: oshlpi-ae-cwxr test normal Extrem General: Yes normal to inspection, Yes full ROM and Yes capillary refill normal Psych Appearance: grossly normal Mental Status: mental status grossly normal Affect: normal affect Attitude: cooperative Thought process: Normal thought process present Thought content: Normal thought content present Insight: Good insight present (Psych) Medical Decision Making MDM Narrative Medical decision making narrative: Patient is a 51 year old female presenting to the emergency department today with low back pain. Patient's physical exam was unremarkable. Patient's urine showed a possible urinary tract infection, given the patient's low back pain, we will treat it. I explained my physical exam findings as well as all test results to the patient. I answered all questions asked by the patient. Patient received IM Toradol and PO Flexeril which she stated helped her symptoms significantly. I stressed the importance of the patient taking her medication as prescribed. I stressed the importance of the patient following up with her primary care provider. I stressed the importance of the patient returning to the emergency department immediately if her symptoms were to worsen or if she were to develop any dizziness, shortness of breath, difficulty breathing, chest pain, blurry vision, loss of vision, nausea, vomiting, abdominal pain, fever, chills, back pain, or any other complaints. Patient verbalized agreement and understanding with this treatment plan and discharge. Differential Diagnosis Differential Diagnosis: low back pain, UTI Medical Records Medical records reviewed: Yes I reviewed the patient's medical records. Lab Data Lab results reviewed: Yes I reviewed the patient's lab results. Labs: Lab Results 12/14/21 Range/Units 10:38 Urine Color YELLOW Urine Appearance CLEAR Urine pH 6.5 (5.0-8.0) Ur Specific [place] <= 1.005 (1.005-1.025) Urine Protein NEG (NEG-TRACE) MG/DL Urine Glucose (UA) >=1000 H (NEG) MG/DL Urine Ketones NEG (NEG) MG/DL Urine Blood NEG (NEG) Urine Nitrite NEG (NEG) Ur Leukocyte Esterase 1+ H (NEG) Discharge Plan Discharge Clinical Impression: Lumbar radiculopathy, UTI (urinary tract infection) Patient Disposition: Home, Self-Care Instructions: Urinary Tract Infection in Women (DC), Back Pain (ED) Additional Instructions: Follow up with your primary care provider. Return to the emergency department immediately if your symptoms worsen or if you develop any dizziness, shortness of breath, difficulty breathing, chest pain, blurry vision, loss of vision, nausea, vomiting, abdominal pain, fever, chills, back pain, or any other complaints. Prescriptions: New cyclobenzaprine 10 mg tablet 10 mg PO TID PRN (Reason: back pain) 7 Days Qty: 21 0RF cephalexin 500 mg capsule 500 mg PO Q6H 7 Days Qty: 28 0RF No Action morphine 15 mg tablet 15 mg PO Q4-6H PRN (Reason: pain) Qty: 10 0RF Rx Instructions: The patient may ask for partial fill cyclobenzaprine 10 mg tablet 10 mg PO TID PRN (Reason: muscle spasm) Qty: 14 0RF otjkcjigod-szmiyzcmctpdw-qxzy 50-325-40 mg tablet 1 tab PO Q6H PRN (Reason: pain) Qty: 20 0RF ondansetron 4 mg tablet,disintegrating 4 mg PO Q8H PRN (Reason: nausea and vomiting) Qty: 20 0RF nitrofurantoin monohyd/m-cryst [Macrobid] 100 mg capsule 100 mg PO BID Qty: 20 0RF Rx Instructions: must administer with a meal/food omeprazole magnesium [Prilosec OTC] 20 mg tablet,delayed release (DR/EC) 20 mg PO BID Qty: 30 0RF Lantus U-100 Insulin 100 unit/mL solution 20 unit subcut DAILY 0RF metformin 500 mg tablet 500 mg PO DAILY 0RF Lantus U-100 Insulin 100 unit/mL solution 10 unit subcut BID 0RF Referrals: Yakov Wylie MD [Primary Care Provider] - (Follow up with your PCP. ) Stand Alone Forms: Work/School Release Interventions: ED Discharge Assessment Last Done: 12/14/21 11:15 Discharge Date/Time: 12/14/21 11:16 Print Language: Polish
[2021-12-14] MEDS: Cyclobenzaprine HCl 10 MG TABLET PO (09:57)
[2021-12-14] MEDS: Ketorolac Tromethamine 15 MG/ML VIAL IM (09:58)
[2021-12-14 10:50] LABS: Appearance Urine CLEAR; Color Urine YELLOW; Glucose Urine UA >=1000 MG/DL (NEG); Leukocyte Esterase Urine 1+ (NEG); Nitrite Urine NEG (NEG); PH 6.5 (5.0-8.0); Specific Gravity - Urine <= 1.005 (1.005-1.025); UACC Culture Trigger YES; Urine Blood NEG (NEG); Urine Ketones NEG (NEG); Urine Protein NEG (NEG-TRACE)
[2021-12-14 11:27] LABS: Squamous Epithelial Cell Urine 1+ /LPF
[2021-12-14 11:28] LABS: Bacteria Urine 4+ /LPF; WBC Clumps Urine NOTED
[2021-12-14 11:29] LABS: RBC Urine 0 /HPF (0)
== END 2021-12-14 11:16 | disposition home or self-care (01) ==
PROVIDERS: Physician Assistant Medical; Emergency Provider Emergency Medicine; PCP Internal Medicine
DX: N39.0 Urinary tract infection, site not specified (principal); M54.16 Radiculopathy, lumbar region; E11.9 Type 2 diabetes mellitus without complications; I10 Essential (primary) hypertension; J45.909 Unspecified asthma, uncomplicated
CPT/HCPCS: 81001; 87086; 96372; 99284; J1885

== ENCOUNTER → 2022-01-03 09:18 | Outpatient (BNVA) | payer OTHER, SELFPAY | PROVIDERS: PCP Internal Medicine; Visit Provider Nurse Practitioner Family | DX: M79.7 Fibromyalgia (principal); M54.16 Radiculopathy, lumbar region; M47.817 Spondylosis without myelopathy or radiculopathy, lumbosacral region | CPT/HCPCS: 99202 ==

== ENCOUNTER 2022-01-23 16:14 | Outpatient (REF) | payer OTHER, SELFPAY ==
--- NOTE | ~2022-01-23 | MR_ITS ---
MR LUMBAR SPINE WITHOUT CONTRAST CLINICAL INFORMATION: Lumbar region radiculopathy. COMPARISON: None available. TECHNIQUE: MRI of the lumbar spine was obtained using routine sequences without contrast. FINDINGS: There are 5 nonrib-bearing lumbar-type vertebral bodies. There is grade 1 anterolisthesis of L4 on L5. Lumbar alignment is otherwise maintained. There is no bone marrow edema. There are no acute fractures. Vertebral body heights are preserved. Disc desiccation at the L3-L4, L4-L5, and L5-S1 levels. Modic type II endplate signal changes along the lower endplate of L4. Conus terminates at the T12-L1 level. There is bilateral perinephric stranding. L1-L2: There is an inferiorly migrating right paracentral disc extrusion that compresses the traversing right L2 nerve root within the right L2 lateral recess on image 4 of series 4. L2-L3: Disc contour is normal. Mild bilateral facet arthropathy. No central canal stenosis and no foraminal stenosis. L3-L4: Diffuse annular disc bulge and moderate bilateral facet arthropathy. No central canal stenosis. Mild foraminal encroachment bilaterally. L4-L5: Slight grade 1 anterolisthesis. Severe bilateral facet arthropathy. Uncovered disc with a superimposed diffuse annular disc bulge and shallow central disc protrusion. Findings in concert result in bilateral subarticular zone stenosis with mild mass effect on the traversing L5 nerve roots bilaterally as well as moderate left and mild to moderate right foraminal stenosis with mild mass effect on the exiting left L4 nerve root. L5-S1: Shallow left paracentral disc protrusion results in posterior deflection of the traversing left S1 nerve root within the left subarticular zone. Background annular disc bulge and bilateral facet arthropathy. Disc osteophyte and facet arthropathy result in moderate to severe left foraminal stenosis with mass effect on the exiting left L5 nerve root. MR/MR lumbar spine wo con IMPRESSION: - At L1-L2, there is an inferiorly migrating right paracentral disc extrusion that compresses the traversing right L2 nerve root within the right L2 lateral recess on image 4 of series 4. - At L4-L5, there is slight grade 1 anterolisthesis in the setting of severe bilateral hypertrophic facet arthropathy that along with additional spondylitic changes results in bilateral subarticular zone stenosis with mild mass effect on the traversing L5 nerve roots bilaterally as well as moderate left and mild to moderate right foraminal stenosis with mild mass effect on the exiting left L4 nerve root. - At L5-S1, multifactorial degenerative changes result in moderate to severe left foraminal stenosis with mass effect on the exiting left L5 nerve root.
== END 2022-01-23 16:15 | disposition home or self-care (01) ==
LOC: HO.MRI 16:14
PROVIDERS: PCP Internal Medicine; Visit Provider Nurse Practitioner Family
DX: M54.16 Radiculopathy, lumbar region (principal); M47.817 Spondylosis without myelopathy or radiculopathy, lumbosacral region
CPT/HCPCS: 72148

== ENCOUNTER 2022-03-28 14:53 | Emergency (ER) | payer OTHER, SELFPAY ==
--- NOTE | ~2022-03-28 | XR_ITS ---
EXAMINATION: XR CHEST CLINICAL INFORMATION: Hypoxic COMPARISON: None TECHNIQUE: Upright AP view of the chest is performed. FINDINGS: Patient slightly rotated to left. There are low lung volumes. The heart is normal in size. There is no lobar or segmental airspace consolidation, focal groundglass opacity, or effusion. There is even distribution pulmonary vascularity. No Sarah B lines. No acute bony abnormality. XR/XR chest 1V IMPRESSION: Low lung volumes. No airspace consolidation or definite groundglass opacity. No effusion.
--- NOTE | ~2022-03-28 | CT_ITS ---
EXAMINATION: CT HEAD WITHOUT CONTRAST CT CERVICAL SPINE WITHOUT CONTRAST CLINICAL INFORMATION: Weakness. Unable to ambulate. Fall. COMPARISON: None. TECHNIQUE: Imaging was performed from the skull base to vertex without intravenous administration of contrast. In addition, helical noncontrast CT imaging was acquired through the cervical spine and source images were reviewed along with axial reconstructions and sagittal and coronal MPRs. [This CT examination was performed using dose optimization techniques as appropriate, variously including the following: *Automated exposure control *Adjustment of mA and/or kV according to patient size (this includes techniques or standardized protocols for targeted exams where dose is matched to indication/reason for exam; i.e. extremities or head) *Use of iterative reconstruction technique] DLP: 2323 mGy-cm FINDINGS: HEAD: No intracranial mass, hemorrhage, or midline shift is visualized. The ventricles and sulci are proportional. No extra-axial collections are identified. Retention cyst in right maxillary sinus. CERVICAL SPINE: There is no evidence of acute cervical spine fracture. Vertebral bodies remain normal in height. Cervical vertebrae have normal alignment. Cervical disc heights are normal. The facet joints are normal. No pre- or paravertebral soft tissue abnormality is identified. Limited assessment of the lung apices is unremarkable. CT/CT head/brain wo con IMPRESSION: 1. No acute intracranial pathology. 2. No CT evidence of acute cervical spine fracture or traumatic subluxation
--- NOTE | ~2022-03-28 | CT_ITS ---
EXAMINATION: CT HEAD WITHOUT CONTRAST CT CERVICAL SPINE WITHOUT CONTRAST CLINICAL INFORMATION: Weakness. Unable to ambulate. Fall. COMPARISON: None. TECHNIQUE: Imaging was performed from the skull base to vertex without intravenous administration of contrast. In addition, helical noncontrast CT imaging was acquired through the cervical spine and source images were reviewed along with axial reconstructions and sagittal and coronal MPRs. [This CT examination was performed using dose optimization techniques as appropriate, variously including the following: *Automated exposure control *Adjustment of mA and/or kV according to patient size (this includes techniques or standardized protocols for targeted exams where dose is matched to indication/reason for exam; i.e. extremities or head) *Use of iterative reconstruction technique] DLP: 2323 mGy-cm FINDINGS: HEAD: No intracranial mass, hemorrhage, or midline shift is visualized. The ventricles and sulci are proportional. No extra-axial collections are identified. Retention cyst in right maxillary sinus. CERVICAL SPINE: There is no evidence of acute cervical spine fracture. Vertebral bodies remain normal in height. Cervical vertebrae have normal alignment. Cervical disc heights are normal. The facet joints are normal. No pre- or paravertebral soft tissue abnormality is identified. Limited assessment of the lung apices is unremarkable. CT/CT cervical spine wo con IMPRESSION: 1. No acute intracranial pathology. 2. No CT evidence of acute cervical spine fracture or traumatic subluxation
[2022-03-28 15:18] VITALS: BP 98/66; PULSE 94; O2SAT 95
--- NOTE | 2022-03-28 15:23 | ECG_ITS ---
Test Reason : CP Blood Pressure : / mmHG Vent. Rate : 078 BPM Atrial Rate : 078 BPM P-R Int : 162 ms QRS Dur : 098 ms QT Int : 428 ms P-R-T Axes : 023 007 014 degrees QTc Int : 487 ms Normal sinus rhythm Prolonged QT Abnormal ECG When compared with ECG of 30-SEP-2021 18:08, No significant change was found Referred By: Ashlyn Fox Electronically Signed By:CECILIO MUÑOZ
[2022-03-28 15:26] VITALS: BP 109/53; PULSE 82; RESP 16; TEMP 37.2; O2SAT 89; BMI 41.3
--- NOTE | 2022-03-28 15:42 | ED_ITS ---
HPI - General Adult General Chief complaint: General Medical <ADDY Renner - Last Filed: 03/28/22 23:37> Stated complaint: FALL,WEAKNESS <ADDY Renner - Last Filed: 03/28/22 23:37> Time Seen by Provider: 03/28/22 15:22 <ADDY Renner - Last Filed: 03/28/22 23:37> Source: patient, old records reviewed and certified court interpreter <ADDY Renner - Last Filed: 03/28/22 23:37> Mode of arrival: ambulatory <ADDY Renner - Last Filed: 03/28/22 23:37> Limitations: language barrier <ADDY Renner Last Filed: 03/28/22 23:37> History of Present Illness HPI narrative: 52 yo female with history of fibromyalgia, asthma, diabetes, migraines, HTN, chronic low back pain x 10 years, hx UTI who was just released from [facility] yesterday after a reported almost 2 week admission for SI presents to the ER for evaluation of generalized weakness and feeling unwell after she fell at home today. History is limited as on EMS arrival patient and her family only spoke Czech. EMS found her on the ground between the bed and night side tabl e. She had abrasions on both of her knees. It was very difficult to get her to the stretcher and she was described as a ?wet noodle.? Her vital signs were stable and her point of care was 336. She is a poor historian. She states when she got home from [facility] yesterday she was feeling ?okay.? This morning she states she was barely able to walk, had weakness in her legs. She states usually walks with a walker at baseline. She states her knees gave out and she fell to the ground. She denies hitting her head or losing consciousness. She is a poor historian. She also reports left-sided chest pain that does not radiate that started yesterday. She denies any shortness of breath. She also reports right-sided abdominal pain that comes and goes, without nausea or vomiting. She cannot say when this started. She thinks she was started on new psychiatric medications after her stay at [facility] but she does not recall their names. <ADDY Renner Last Filed: 03/28/22 23:37> MD complaint: weakness <ADDY Renner - Last Filed: 03/28/22 23:37> Onset (ago): hour(s) <ADDY Renner - Last Filed: 03/28/22 23:37> Location: left, right and lower extremity <ADDY Renner - Last Filed: 03/28/22 23:37> Severity: moderate <ADDY Renner - Last Filed: 03/28/22 23:37> Quality: aching <ADDY Renner - Last Filed: 03/28/22 23:37> Relieving factors: rest <ADDY Renner - Last Filed: 03/28/22 23:37> Exacerbating factors: movement <ADDY Renner - Last Filed: 03/28/22 23:37> Associated symptoms: chest pain, loss of appetite, malaise and weakness <ADDY Renner - Last Filed: 03/28/22 23:37> Treatments prior to arrival: none <ADDY Renner - Last Filed: 03/28/22 23:37> Related Data Home medications: Home Medications Medication Instructions Recorded Confirmed insulin glargine 100 unit/mL 20 unit subcut DAILY 07/22/20 07/22/20 subcutaneous solution (Lantus U-100 Insulin) aspirin 81 mg tablet,delayed 1 tab PO DAILY 03/29/22 release clonidine HCl 0.3 mg tablet 1 tab PO BEDTIME 03/29/22 dulaglutide 1.5 mg/0.5 mL ea subcut 03/29/22 03/29/22 subcutaneous pen injector (Trulicity) enalapril maleate 10 mg tablet 1 tab PO DAILY 03/29/22 hydroxyzine pamoate 25 mg capsule 1 cap PO TID 03/29/22 03/29/22 insulin lispro 100 unit/mL ea subcut 03/29/22 subcutaneous pen lorazepam 2 mg tablet 1 tab PO BID PRN Anxiety 03/29/22 metformin 500 mg tablet,extended 2 tab PO BID 03/29/22 release 24 hr metoprolol tartrate 25 mg tablet 1 tab PO BID 03/29/22 montelukast 10 mg tablet 1 tab PO DAILY 03/29/22 omeprazole 40 mg capsule,delayed 1 cap PO DAILY 03/29/22 release paroxetine HCl 40 mg tablet tab PO 03/29/22 prazosin 5 mg capsule cap PO 03/29/22 rosuvastatin 5 mg tablet 1 tab PO DAILY 03/29/22 suvorexant 20 mg tablet (Belsomra) 1 tab PO BEDTIME PRN Sleep 03/29/22 topiramate 100 mg tablet tab PO 03/29/22 trazodone 150 mg tablet 1 tab PO BEDTIME 03/29/22 ziprasidone HCl 40 mg capsule 1 cap PO BID 03/29/22 ziprasidone HCl 60 mg capsule 1 cap PO BID 03/29/22 <ADDY Renner - Last Filed: 03/28/22 23:37> Allergies/adverse reactions: Allergies Allergy/AdvReac Type Severity Reaction Status Date / Time acetaminophen [Percocet] Allergy Unknown Unknown Verified 01/03/22 09:34 oxycodone [From PERCOCET] Allergy Unknown N/V Verified 01/03/22 09:34 tramadol Allergy Unknown Unknown Verified 01/03/22 09:34 <ADDY Renner - Last Filed: 03/28/22 23:37> Review of Systems Review of Systems: Constitutional: No Fever, No Chills ENT/Mouth: No sore throat, No Rhinorrhea, No Swallowing Difficulty Eyes: No Eye Pain, No Swelling, No Redness Cardiovascular: + Chest Pain, No SOB, No Orthopnea, No Edema Respiratory: No Cough, No Sputum, No Wheezing, No dyspnea Gastrointestinal: No Nausea, No Vomiting, No Diarrhea, + abdominal Pain, No Hematochezia, No Melena Genitourinary: No Dysuria, No Urinary Frequency, No Hematuria Musculoskeletal: No joint pain, No Myalgias Skin: No Skin Lesions, No rash Neuro: + Weakness, No Numbness, + Dizziness, No Headache Psych: No Anxiety/Panic, + Depression, No SI, No HI Heme/Lymph: No Bruising, No Lymphadenopathy Endocrine: No Polyuria, No Polydipsia <ADDY Renner - Last Filed: 03/28/22 23:37> [facility] Past Medical History Medical History: Medical History Chronic asthma Diabetes Fibromyalgia Hypertension Migraines <ADDY Renner - Last Filed: 03/28/22 23:37> Surgical History: Surgical History History of carpal tunnel release Hx of breast reduction, elective <ADDY Renner - Last Filed: 03/28/22 23:37> Social History Social History: Social History Alcohol intake: unknown Patient Tobacco Use Status: Never used Tobacco Use of substances other than those prescribed or required for medical reasons: Yes Advance Directives: Yes Advance Directives Information Provided: Yes Advance Directives on File: No Current occupational status: unemployed Current occupation: right handed <ADDY Renner - Last Filed: 03/28/22 23:37> Physical Exam ED Vital Signs: Vital Signs - 24 hr 03/28/22 15:26 03/28/22 20:57 03/29/22 06:00 Temperature 98.9 F Pulse Rate 82 74 85 Respiratory Rate 16 18 Blood Pressure 109/53 L 122/72 108/37 L Pulse Oximetry 89 L 94 95 Oxygen Delivery Method Room Air Room Air Room Air 03/29/22 08:22 Temperature 97.9 F Pulse Rate 85 Respiratory Rate 18 Blood Pressure 112/71 Pulse Oximetry 94 Oxygen Delivery Method Room Air BMI result Body Mass Index 41.3 <ADDY Renner - Last Filed: 03/28/22 23:37> Vital Signs - 24 hr 03/28/22 15:26 03/28/22 20:57 03/29/22 06:00 Temperature 98.9 F Pulse Rate 82 74 85 Respiratory Rate 16 18 Blood Pressure 109/53 L 122/72 108/37 L Pulse Oximetry 89 L 94 95 Oxygen Delivery Method Room Air Room Air Room Air 03/29/22 08:22 Temperature 97.9 F Pulse Rate 85 Respiratory Rate 18 Blood Pressure 112/71 Pulse Oximetry 94 Oxygen Delivery Method Room Air BMI result Body Mass Index 41.3 <Elisabeth Walsh MD - Last Filed: 03/29/22 05:51> Vital Signs - 24 hr 03/28/22 15:26 03/28/22 20:57 03/29/22 06:00 Temperature 98.9 F Pulse Rate 82 74 85 Respiratory Rate 16 18 Blood Pressure 109/53 L 122/72 108/37 L Pulse Oximetry 89 L 94 95 Oxygen Delivery Method Room Air Room Air Room Air 03/29/22 08:22 Temperature 97.9 F Pulse Rate 85 Respiratory Rate 18 Blood Pressure 112/71 Pulse Oximetry 94 Oxygen Delivery Method Room Air BMI result Body Mass Index 41.3 <ADDY Gage - Last Filed: 03/29/22 08:36> Appearance: Alert. Oriented X3. No acute distress. Eyes: Pupils equal, round and reactive to light. ENT: Pharynx normal. Neck: Normal inspection. Neck supple. CVS: Normal heart rate and rhythm. Pulses normal. Respiratory: No respiratory distress. Breath sounds diminished throughout. Abdomen: Obese, Softly distended and nontender. +BS x4 Skin: Skin warm and dry. Normal skin color. Normal skin turgor. No rashes. Extremities: No lower extremity edema. Minor superfiical abrasions to the bilateral knees, nontender without swelling or ecchymosis. Neuro: Oriented X 3. LE with 3/5 strength, UE with 4/5 strength. Normal speech, lethargic at times. CN II-XII intact. No facial droop. <ADDY Renner - Last Filed: 03/28/22 23:37> Course Course Course Narrative: 52-year-old female with a history of poorly controlled diabetes, HTN, HLD, fibromyalgia, recent admission to [facility] for suicidal ideation who presents to the ER for generalized weakness and a fall today. Patient's story is varying depending on which staff member she is speaking with. Another staffing administrator used to get additional history. Patient now reports that she was dizzy prior to her fall and her legs gave out. Patient's found her around 13:00. Unsure when she fell. She states she was too weak to get up. Her reports her mentation and speech seem at baseline right now, but she is weaker than usual. On arrival to the ER she is lethargic but arouses to voice, answers questions appropriately but vaguely. Her SpO2 initially was 89-91% on room air, she was placed on 2 L nasal cannula with improvement. She denies any shortness of breath or chest pain. Blood pressure is stable. Will need to get records for [place], concern for possible polypharmacy given her mentation. Will also rule out other toxic ingestions, rhabdomyolysis, metabolic abnormalities. Will get a CT scan of her head as well given the fall was unwitnessed. <ADDY Renner - Last Filed: 03/28/22 23:37> Reevaluation(s) Reevaluation #1: CT her head is unremarkable. Lab workup showing a WBC 13.3. Chest x-ray is clear. Awaiting urinalysis sample. VBG with pH 7.31, normal pCO2. Very mild metabolic acidosis. Will check lactic acidosis. Other lab workup is still pending. IV fluids are infusing. Difficult stick, multiple nurses attempted to get her peripheral IV placed. Delay and fluids due to this. <ADDY Renner - Last Filed: 03/28/22 23:37> Reevaluation #2: Serum glucose 437. She has a mildly elevated BUN and creatinine is slightly higher than usual, although within normal limits. She has a normal anion gap and a bicarb of 19. Potassium is 5.3. LFTs mildly and chronically elevated. Troponin is undetectable. CK is 76. Will give subcutaneous insulin and IV fluids now. No evidence of DKA given there is no anion gap. Attempting to get records from [facility] for her medications. Med slat pickler reviewed and it appears that her Geodon was increased and she was newly started on Trazodone, other meds include clonidine, hydroxyzine, prazosin, and topamax. <ADDY Renner - Last Filed: 03/28/22 23:37> Reevaluation #3: Glucose improved to 200s. Patient more awake. Off oxygen saturating 95%, still awaiting urine sample. Patient has been incontinent several times of both urine and stool. She says she does this at home too and her and ORDNANCE TECHNICIAN clean her up. She states she tried calling for help but no one came in time. <ADDY Renner - Last Filed: 03/28/22 23:37> Additional Reevaluation(s): UA obtained with straight cath - positive for infection and positive for Fentanyl, which can explain patient's initial presentation and transient hypoxia. Will give dose of IV rocephin and plan to have her be seen by PT and Case Management. Physician observation started at 11:22pm. Patient placed in physician observation because patient is awaiting PT evaluation for possible short term rehab. At the time observation was started patient's vital signs were stable. Patient is alert and oriented. Neuro exam is non-focal, globally weak. CV: RRR and lungs are clear. Will continue to monitor. <ADDY Renner - Last Filed: 03/28/22 23:37> UA obtained with straight cath - positive for infection and positive for Fentanyl, which can explain patient's initial presentation and transient hypoxia. Will give dose of IV rocephin and plan to have her be seen by PT and Case Management. Physician observation started at 11:22pm. Patient placed in physician observation because patient is awaiting PT evaluation for possible short term rehab. At the time observation was started patient's vital signs were stable. Patient is alert and oriented. Neuro exam is non-focal, globally weak. CV: RRR and lungs are clear. Will continue to monitor. 05:49. Patient's night was uneventful. Initially patient had a lactic acid of 3.2, decreased to 2.8, now 1.1. Patient did not have a fever, blood pressure within normal limits. Patient received ceftriaxone. Patient will start p.o. cefuroxime tonight. <Elisabeth Walsh MD - Last Filed: 03/29/22 05:51> UA obtained with straight cath - positive for infection and positive for Fentanyl, which can explain patient's initial presentation and transient hypoxia. Will give dose of IV rocephin and plan to have her be seen by PT and Case Management. Physician observation started at 11:22pm. Patient placed in physician obs ervation because patient is awaiting PT evaluation for possible short term rehab. At the time observation was started patient's vital signs were stable. Patient is alert and oriented. Neuro exam is non-focal, globally weak. CV: RRR and lungs are clear. Will continue to monitor. 05:49. Patient's night was uneventful. Initially patient had a lactic acid of 3.2, decreased to 2.8, now 1.1. Patient did not have a fever, blood pressure within normal limits. Patient received ceftriaxone. Patient will start p.o. cefuroxime tonight. 2021 8:35am. Physician observation continued. Patient is not in any distress. Patient awaiting PT/corrections caseworker evaluation. Patient vital signs stable. Patient is sleeping comfortably in bed. <ADDY Gage - Last Filed: 03/29/22 08:36> Consultations Consultation #1: PT/CM <ADDY Renner - Last Filed: 03/28/22 23:37> Medical Decision Making Lab Data Result diagrams: : 03/28/22 16:52 03/28/22 16:52 <ADDY Renner - Last Filed: 03/28/22 23:37> Labs: Lab Results 03/28/22 03/28/22 03/28/22 Range/Units 16:52 16:52 16:52 WBC 13.3 H (4.8-10.8) X10*3/uL RBC 4.73 (4.20-5.50) X10*6/uL Hgb 13.2 (12.0-16.0) g/dl Hct 40.0 (37.0-47.0) % MCV 84.6 (80.0-98.0) fL MCH 27.9 (27.0-33.0) pg MCHC 33.0 (31.0-35.0) g/dl RDW 13.4 (11.0-16.0) % Plt Count 175 (160-400) X10*3/uL MPV 13.0 H (9.4-12.3) fL Immature Gran % (Auto) 0.5 H (0.0-0.4) % Neut % (Auto) 83.2 H (45-73) % Lymph % (Auto) 9.4 L (20-40) % [place] % (Auto) 6.2 (2-11) % Eos % (Auto) 0.5 (0-4) % Baso % (Auto) 0.2 (0-2) % Lymph # (Auto) 1.3 (1.2-4.9) X10*3/uL [place] # (Auto) 0.8 (0.1-1.2) X10*3/uL Eos # (Auto) 0.1 (0.0-0.4) X10*3/uL Baso # (Auto) 0.0 (0.0-0.2) X10*3/uL Abs Immat Gran (auto) 0.07 H (0.00-0.03) X10*3/uL Absolute Neuts (auto) 11.1 H (2.0-8.3) x10*3/uL Absolute Nucleated RBC 0.000 (0.0-0.012) X10*3/uL Nucleated RBC % (auto) 0.0 (0.0-0.2) /100WBC VBG pH (7.32-7.43) VBG pCO2 mmHg VBG pO2 mmHg VBG HCO3 (22-26) mmol/L VBG O2 Saturation % VBG Base Excess mmol/L Sodium 137 (135-145) mmol/L Potassium 5.3 H (3.3-5.1) mmol/L Chloride 106 (96-108) mmol/L Carbon Dioxide 19 L (22-29) mmol/L Anion Gap 17 (12-20) BUN 19 H D (9-16) mg/dL Creatinine 1.23 (0.5-1.4) mg/dL Estim Creat Clear Calc 70.8 Estimated GFR 46 POC Glucose (60-115) mg/dL Random Glucose 437 H* (60-115) mg/dL Lactic Acid (0.5-2.0) mmol/L Lactic Acid F/U @ 2Hr (0.5-2.0) mmol/L Lactic Acid F/U @ 4Hr (0.5-2.0) mmol/L Calcium 8.8 (8.4-10.2) mg/dL Magnesium 2.0 (1.6-2.6) mg/dL Total Bilirubin 0.4 (0.0-1.0) mg/dL Direct Bilirubin < 0.2 (0.0-0.5) mg/dL AST 69 H (5-31) U/L ALT 65 H (0-31) U/L Alkaline Phosphatase 143 H (39-117) U/L Total Creatine Kinase 76 (26-140) U/L Troponin I High Sens < 3.5 (<3.5-17.0) ng/L B-Natriuretic Peptide 75 (<100) pg/mL Total Protein 6.7 (6.5-8.0) g/dL Albumin 3.8 (3.5-5.0) g/dL Urine Color Urine Appearance Urine pH (5.0-8.0) Ur Specific Adrian (1.005-1.025) Urine Protein (NEG-TRACE) MG/DL Urine Glucose (UA) (NEG) MG/DL Urine Ketones (NEG) MG/DL Urine Blood (NEG) Urine Nitrite (NEG) Ur Leukocyte Esterase (NEG) Urine RBC (0) /HPF Urine WBC (0-4) /HPF Urine WBC Clumps Ur Squamous Epith Cells /LPF Ur Renal Epithelial Cell /LPF Urine Bacteria /LPF Granular Casts /LPF Waxy Casts /LPF Urine Mucus /LPF Salicylates < 5.0 L (15-30) mg/dL Urine Opiates Screen (Not Detect) Urine Fentanyl Screen (Not Detect) Acetaminophen < 1 (<30) mcg/mL Ur Barbiturates Screen (Not Detect) Ur Phencyclidine Scrn (Not Detect) Ur Amphetamines Screen (Not Detect) U Benzodiazepines Scrn (Not Detect) Urine Cocaine Screen (Not Detect) U Marijuana (THC) Screen (Not Detect) Ethyl Alcohol < 10 mg/dL Acetone, Qual (Negative) COVID-19 ([facility]) (Negative) COVID-19 Clin Com 03/28/22 03/28/22 03/28/22 Range/Units 16:52 16:57 17:55 WBC (4.8-10.8) X10*3/uL RBC (4.20-5.50) X10*6/uL Hgb (12.0-16.0) g/dl Hct (37.0-47.0) % MCV (80.0-98.0) fL MCH (27.0-33.0) pg MCHC (31.0-35.0) g/dl RDW (11.0-16.0) % Plt Count (160-400) X10*3/uL MPV (9.4-12.3) fL Immature Gran % (Auto) (0.0-0.4) % Neut % (Auto) (45-73) % Lymph % (Auto) (20-40) % [place] % (Auto) (2-11) % Eos % (Auto) (0-4) % Baso % (Auto) (0-2) % Lymph # (Auto) (1.2-4.9) X10*3/uL [place] # (Auto) (0.1-1.2) X10*3/uL Eos # (Auto) (0.0-0.4) X10*3/uL Baso # (Auto) (0.0-0.2) X10*3/uL Abs Immat Gran (auto) (0.00-0.03) X10*3/uL Absolute Neuts (auto) (2.0-8.3) x10*3/uL Absolute Nucleated RBC (0.0-0.012) X10*3/uL Nucleated RBC % (auto) (0.0-0.2) /100WBC VBG pH 7.31 L (7.32-7.43) VBG pCO2 38 mmHg VBG pO2 70 mmHg VBG HCO3 19 L (22-26) mmol/L VBG O2 Saturation 91.0 % VBG Base Excess -6.1 mmol/L Sodium (135-145) mmol/L Potassium (3.3-5.1) mmol/L Chloride (96-108) mmol/L Carbon Dioxide (22-29) mmol/L Anion Gap (12-20) BUN (9-16) mg/dL Creatinine (0.5-1.4) mg/dL Estim Creat Clear Calc Estimated GFR POC Glucose (60-115) mg/dL Random Glucose (60-115) mg/dL Lactic Acid 3.2 H* (0.5-2.0) mmol/L Lactic Acid F/U @ 2Hr (0.5-2.0) mmol/L Lactic Acid F/U @ 4Hr (0.5-2.0) mmol/L Calcium (8.4-10.2) mg/dL Magnesium (1.6-2.6) mg/dL Total Bilirubin (0.0-1.0) mg/dL Direct Bilirubin (0.0-0.5) mg/dL AST (5-31) U/L ALT (0-31) U/L Alkaline Phosphatase (39-117) U/L Total Creatine Kinase (26-140) U/L Troponin I High Sens (<3.5-17.0) ng/L B-Natriuretic Peptide (<100) pg/mL Total Protein (6.5-8.0) g/dL Albumin (3.5-5.0) g/dL Urine Color Urine Appearance Urine pH (5.0-8.0) Ur Specific Adrian (1.005-1.025) Urine Protein (NEG-TRACE) MG/DL Urine Glucose (UA) (NEG) MG/DL Urine Ketones (NEG) MG/DL Urine Blood (NEG) Urine Nitrite (NEG) Ur Leukocyte Esterase (NEG) Urine RBC (0) /HPF Urine WBC (0-4) /HPF Urine WBC Clumps Ur Squamous Epith Cells /LPF Ur Renal Epithelial Cell /LPF Urine Bacteria /LPF Granular Casts /LPF Waxy Casts /LPF Urine Mucus /LPF Salicylates Cancelled (15-30) mg/dL Urine Opiates Screen (Not Detect) Urine Fentanyl Screen (Not Detect) Acetaminophen Cancelled (<30) mcg/mL Ur Barbiturates Screen (Not Detect) Ur Phencyclidine Scrn (Not Detect) Ur Amphetamines Screen (Not Detect) U Benzodiazepines Scrn (Not Detect) Urine Cocaine Screen (Not Detect) U Marijuana (THC) Screen (Not Detect) Ethyl Alcohol Cancelled mg/dL Acetone, Qual (Negative) COVID-19 ([facility]) (Negative) COVID-19 Clin Com 03/28/22 03/28/22 03/28/22 Range/Units 20:09 20:09 20:09 WBC (4.8-10.8) X10*3/uL RBC (4.20-5.50) X10*6/uL Hgb (12.0-16.0) g/dl Hct (37.0-47.0) % MCV (80.0-98.0) fL MCH (27.0-33.0) pg MCHC (31.0-35.0) g/dl RDW (11.0-16.0) % Plt Count (160-400) X10*3/uL MPV (9.4-12.3) fL Immature Gran % (Auto) (0.0-0.4) % Neut % (Auto) (45-73) % Lymph % (Auto) (20-40) % [place] % (Auto) (2-11) % Eos % (Auto) (0-4) % Baso % (Auto) (0-2) % Lymph # (Auto) (1.2-4.9) X10*3/uL [place] # (Auto) (0.1-1.2) X10*3/uL Eos # (Auto) (0.0-0.4) X10*3/uL Baso # (Auto) (0.0-0.2) X10*3/uL Abs Immat Gran (auto) (0.00-0.03) X10*3/uL Absolute Neuts (auto) (2.0-8.3) x10*3/uL Absolute Nucleated RBC (0.0-0.012) X10*3/uL Nucleated RBC % (auto) (0.0-0.2) /100WBC VBG pH (7.32-7.43) VBG pCO2 mmHg VBG pO2 mmHg VBG HCO3 (22-26) mmol/L VBG O2 Saturation % VBG Base Excess mmol/L Sodium (135-145) mmol/L Potassium (3.3-5.1) mmol/L Chloride (96-108) mmol/L Carbon Dioxide (22-29) mmol/L Anion Gap (12-20) BUN (9-16) mg/dL Creatinine (0.5-1.4) mg/dL Estim Creat Clear Calc Estimated GFR POC Glucose (60-115) mg/dL Random Glucose (60-115) mg/dL Lactic Acid (0.5-2.0) mmol/L Lactic Acid F/U @ 2Hr (0.5-2.0) mmol/L Lactic Acid F/U @ 4Hr (0.5-2.0) mmol/L Calcium (8.4-10.2) mg/dL Magnesium (1.6-2.6) mg/dL Total Bilirubin (0.0-1.0) mg/dL Direct Bilirubin (0.0-0.5) mg/dL AST (5-31) U/L ALT (0-31) U/L Alkaline Phosphatase (39-117) U/L Total Creatine Kinase (26-140) U/L Troponin I High Sens < 3.5 (<3.5-17.0) ng/L B-Natriuretic Peptide (<100) pg/mL Total Protein (6.5-8.0) g/dL Albumin (3.5-5.0) g/dL Urine Color Urine Appearance Urine pH (5.0-8.0) Ur Specific Adrian (1.005-1.025) Urine Protein (NEG-TRACE) MG/DL Urine Glucose (UA) (NEG) MG/DL Urine Ketones (NEG) MG/DL Urine Blood (NEG) Urine Nitrite (NEG) Ur Leukocyte Esterase (NEG) Urine RBC (0) /HPF Urine WBC (0-4) /HPF Urine WBC Clumps Ur Squamous Epith Cells /LPF Ur Renal Epithelial Cell /LPF Urine Bacteria /LPF Granular Casts /LPF Waxy Casts /LPF Urine Mucus /LPF Salicylates (15-30) mg/dL Urine Opiates Screen (Not Detect) Urine Fentanyl Screen (Not Detect) Acetaminophen (<30) mcg/mL Ur Barbiturates Screen (Not Detect) Ur Phencyclidine Scrn (Not Detect) Ur Amphetamines Screen (Not Detect) U Benzodiazepines Scrn (Not Detect) Urine Cocaine Screen (Not Detect) U Marijuana (THC) Screen (Not Detect) Ethyl Alcohol mg/dL Acetone, Qual Negative (Negative) COVID-19 ([facility]) Negative (Negative) COVID-19 Clin Com See Note 03/28/22 03/28/22 03/28/22 Range/Units 20:59 22:30 22:30 WBC (4.8-10.8) X10*3/uL RBC (4.20-5.50) X10*6/uL Hgb (12.0-16.0) g/dl Hct (37.0-47.0) % MCV (80.0-98.0) fL MCH (27.0-33.0) pg MCHC (31.0-35.0) g/dl RDW (11.0-16.0) % Plt Count (160-400) X10*3/uL MPV (9.4-12.3) fL Immature Gran % (Auto) (0.0-0.4) % Neut % (Auto) (45-73) % Lymph % (Auto) (20-40) % [place] % (Auto) (2-11) % Eos % (Auto) (0-4) % Baso % (Auto) (0-2) % Lymph # (Auto) (1.2-4.9) X10*3/uL [place] # (Auto) (0.1-1.2) X10*3/uL Eos # (Auto) (0.0-0.4) X10*3/uL Baso # (Auto) (0.0-0.2) X10*3/uL Abs Immat Gran (auto) (0.00-0.03) X10*3/uL Absolute Neuts (auto) (2.0-8.3) x10*3/uL Absolute Nucleated RBC (0.0-0.012) X10*3/uL Nucleated RBC % (auto) (0.0-0.2) /100WBC VBG pH (7.32-7.43) VBG pCO2 mmHg VBG pO2 mmHg VBG HCO3 (22-26) mmol/L VBG O2 Saturation % VBG Base Excess mmol/L Sodium (135-145) mmol/L Potassium (3.3-5.1) mmol/L Chloride (96-108) mmol/L Carbon Dioxide (22-29) mmol/L Anion Gap (12-20) BUN (9-16) mg/dL Creatinine (0.5-1.4) mg/dL Estim Creat Clear Calc Estimated GFR POC Glucose 205 H (60-115) mg/dL Random Glucose (60-115) mg/dL Lactic Acid (0.5-2.0) mmol/L Lactic Acid F/U @ 2Hr (0.5-2.0) mmol/L Lactic Acid F/U @ 4Hr (0.5-2.0) mmol/L Calcium (8.4-10.2) mg/dL Magnesium (1.6-2.6) mg/dL Total Bilirubin (0.0-1.0) mg/dL Direct Bilirubin (0.0-0.5) mg/dL AST (5-31) U/L ALT (0-31) U/L Alkaline Phosphatase (39-117) U/L Total Creatine Kinase (26-140) U/L Troponin I High Sens (<3.5-17.0) ng/L B-Natriuretic Peptide (<100) pg/mL Total Protein (6.5-8.0) g/dL Albumin (3.5-5.0) g/dL Urine Color YELLOW Urine Appearance CLOUDY Urine pH 6.0 (5.0-8.0) Ur Specific Adrian 1.025 (1.005-1.025) Urine Protein NEG (NEG-TRACE) MG/DL Urine Glucose (UA) 250 H (NEG) MG/DL Urine Ketones NEG (NEG) MG/DL Urine Blood TRACE (NEG) Urine Nitrite NEG (NEG) Ur Leukocyte Esterase 1+ H (NEG) Urine RBC 1-4 (0) /HPF Urine WBC 30-49 H (0-4) /HPF Urine WBC Clumps NOTED Ur Squamous Epith Cells TRACE /LPF Ur Renal Epithelial Cell 1+ /LPF Urine Bacteria 4+ /LPF Granular Casts 1-4 /LPF Waxy Casts 0-2 /LPF Urine Mucus 2+ /LPF Salicylates (15-30) mg/dL Urine Opiates Screen Not Detected (Not Detect) Urine Fentanyl Screen POSITIVE H (Not Detect) Acetaminophen (<30) mcg/mL Ur Barbiturates Screen Not Detected (Not Detect) Ur Phencyclidine Scrn Not Detected (Not Detect) Ur Amphetamines Screen Not Detected (Not Detect) U Benzodiazepines Scrn Not Detected (Not Detect) Urine Cocaine Screen Not Detected (Not Detect) U Marijuana (THC) Screen Not Detected (Not Detect) Ethyl Alcohol mg/dL Acetone, Qual (Negative) COVID-19 ([facility]) (Negative) COVID-19 Clin Com 03/28/22 03/29/22 Range/Units 23:39 04:50 WBC (4.8-10.8) X10*3/uL RBC (4.20-5.50) X10*6/uL Hgb (12.0-16.0) g/dl Hct (37.0-47.0) % MCV (80.0-98.0) fL MCH (27.0-33.0) pg MCHC (31.0-35.0) g/dl RDW (11.0-16.0) % Plt Count (160-400) X10*3/uL MPV (9.4-12.3) fL Immature Gran % (Auto) (0.0-0.4) % Neut % (Auto) (45-73) % Lymph % (Auto) (20-40) % [place] % (Auto) (2-11) % Eos % (Auto) (0-4) % Baso % (Auto) (0-2) % Lymph # (Auto) (1.2-4.9) X10*3/uL [place] # (Auto) (0.1-1.2) X10*3/uL Eos # (Auto) (0.0-0.4) X10*3/uL Baso # (Auto) (0.0-0.2) X10*3/uL Abs Immat Gran (auto) (0.00-0.03) X10*3/uL Absolute Neuts (auto) (2.0-8.3) x10*3/uL Absolute Nucleated RBC (0.0-0.012) X10*3/uL Nucleated RBC % (auto) (0.0-0.2) /100WBC VBG pH (7.32-7.43) VBG pCO2 mmHg VBG pO2 mmHg VBG HCO3 (22-26) mmol/L VBG O2 Saturation % VBG Base Excess mmol/L Sodium (135-145) mmol/L Potassium (3.3-5.1) mmol/L Chloride (96-108) mmol/L Carbon Dioxide (22-29) mmol/L Anion Gap (12-20) BUN (9-16) mg/dL Creatinine (0.5-1.4) mg/dL Estim Creat Clear Calc Estimated GFR POC Glucose (60-115) mg/dL Random Glucose (60-115) mg/dL Lactic Acid (0.5-2.0) mmol/L Lactic Acid F/U @ 2Hr 2.8 H* (0.5-2.0) mmol/L Lactic Acid F/U @ 4Hr 1.1 (0.5-2.0) mmol/L Calcium (8.4-10.2) mg/dL Magnesium (1.6-2.6) mg/dL Total Bilirubin (0.0-1.0) mg/dL Direct Bilirubin (0.0-0.5) mg/dL AST (5-31) U/L ALT (0-31) U/L Alkaline Phosphatase (39-117) U/L Total Creatine Kinase (26-140) U/L Troponin I High Sens (<3.5-17.0) ng/L B-Natriuretic Peptide (<100) pg/mL Total Protein (6.5-8.0) g/dL Albumin (3.5-5.0) g/dL Urine Color Urine Appearance Urine pH (5.0-8.0) Ur Specific Adrian (1.005-1.025) Urine Protein (NEG-TRACE) MG/DL Urine Glucose (UA) (NEG) MG/DL Urine Ketones (NEG) MG/DL Urine Blood (NEG) Urine Nitrite (NEG) Ur Leukocyte Esterase (NEG) Urine RBC (0) /HPF Urine WBC (0-4) /HPF Urine WBC Clumps Ur Squamous Epith Cells /LPF Ur Renal Epithelial Cell /LPF Urine Bacteria /LPF Granular Casts /LPF Waxy Casts /LPF Urine Mucus /LPF Salicylates (15-30) mg/dL Urine Opiates Screen (Not Detect) Urine Fentanyl Screen (Not Detect) Acetaminophen (<30) mcg/mL Ur Barbiturates Screen (Not Detect) Ur Phencyclidine Scrn (Not Detect) Ur Amphetamines Screen (Not Detect) U Benzodiazepines Scrn (Not Detect) Urine Cocaine Screen (Not Detect) U Marijuana (THC) Screen (Not Detect) Ethyl Alcohol mg/dL Acetone, Qual (Negative) COVID-19 ([facility]) (Negative) COVID-19 Clin Com <ADDY Renner - Last Filed: 03/28/22 23:37> Lab Results 03/28/22 03/28/22 03/28/22 Range/Units 16:52 16:52 16:52 WBC 13.3 H (4.8-10.8) X10*3/uL RBC 4.73 (4.20-5.50) X10*6/uL Hgb 13.2 (12.0-16.0) g/dl Hct 40.0 (37.0-47.0) % MCV 84.6 (80.0-98.0) fL MCH 27.9 (27.0-33.0) pg MCHC 33.0 (31.0-35.0) g/dl RDW 13.4 (11.0-16.0) % Plt Count 175 (160-400) X10*3/uL MPV 13.0 H (9.4-12.3) fL Immature Gran % (Auto) 0.5 H (0.0-0.4) % Neut % (Auto) 83.2 H (45-73) % Lymph % (Auto) 9.4 L (20-40) % [place] % (Auto) 6.2 (2-11) % Eos % (Auto) 0.5 (0-4) % Baso % (Auto) 0.2 (0-2) % Lymph # (Auto) 1.3 (1.2-4.9) X10*3/uL [place] # (Auto) 0.8 (0.1-1.2) X10*3/uL Eos # (Auto) 0.1 (0.0-0.4) X10*3/uL Baso # (Auto) 0.0 (0.0-0.2) X10*3/uL Abs Immat Gran (auto) 0.07 H (0.00-0.03) X10*3/uL Absolute Neuts (auto) 11.1 H (2.0-8.3) x10*3/uL Absolute Nucleated RBC 0.000 (0.0-0.012) X10*3/uL Nucleated RBC % (auto) 0.0 (0.0-0.2) /100WBC VBG pH (7.32-7.43) VBG pCO2 mmHg VBG pO2 mmHg VBG HCO3 (22-26) mmol/L VBG O2 Saturation % VBG Base Excess mmol/L Sodium 137 (135-145) mmol/L Potassium 5.3 H (3.3-5.1) mmol/L Chloride 106 (96-108) mmol/L Carbon Dioxide 19 L (22-29) mmol/L Anion Gap 17 (12-20) BUN 19 H D (9-16) mg/dL Creatinine 1.23 (0.5-1.4) mg/dL Estim Creat Clear Calc 70.8 Estimated GFR 46 POC Glucose (60-115) mg/dL Random Glucose 437 H* (60-115) mg/dL Lactic Acid (0.5-2.0) mmol/L Lactic Acid F/U @ 2Hr (0.5-2.0) mmol/L Lactic Acid F/U @ 4Hr (0.5-2.0) mmol/L Calcium 8.8 (8.4-10.2) mg/dL Magnesium 2.0 (1.6-2.6) mg/dL Total Bilirubin 0.4 (0.0-1.0) mg/dL Direct Bilirubin < 0.2 (0.0-0.5) mg/dL AST 69 H (5-31) U/L ALT 65 H (0-31) U/L Alkaline Phosphatase 143 H (39-117) U/L Total Creatine Kinase 76 (26-140) U/L Troponin I High Sens < 3.5 (<3.5-17.0) ng/L B-Natriuretic Peptide 75 (<100) pg/mL Total Protein 6.7 (6.5-8.0) g/dL Albumin 3.8 (3.5-5.0) g/dL Urine Color Urine Appearance Urine pH (5.0-8.0) Ur Specific Adrian (1.005-1.025) Urine Protein (NEG-TRACE) MG/DL Urine Glucose (UA) (NEG) MG/DL Urine Ketones (NEG) MG/DL Urine Blood (NEG) Urine Nitrite (NEG) Ur Leukocyte Esterase (NEG) Urine RBC (0) /HPF Urine WBC (0-4) /HPF Urine WBC Clumps Ur Squamous Epith Cells /LPF Ur Renal Epithelial Cell /LPF Urine Bacteria /LPF Granular Casts /LPF Waxy Casts /LPF Urine Mucus /LPF Salicylates < 5.0 L (15-30) mg/dL Urine Opiates Screen (Not Detect) Urine Fentanyl Screen (Not Detect) Acetaminophen < 1 (<30) mcg/mL Ur Barbiturates Screen (Not Detect) Ur Phencyclidine Scrn (Not Detect) Ur Amphetamines Screen (Not Detect) U Benzodiazepines Scrn (Not Detect) Urine Cocaine Screen (Not Detect) U Marijuana (THC) Screen (Not Detect) Ethyl Alcohol < 10 mg/dL Acetone, Qual (Negative) COVID-19 ([facility]) (Negative) COVID-19 Clin Com 03/28/22 03/28/22 03/28/22 Range/Units 16:52 16:57 17:55 WBC (4.8-10.8) X10*3/uL RBC (4.20-5.50) X10*6/uL Hgb (12.0-16.0) g/dl Hct (37.0-47.0) % MCV (80.0-98.0) fL MCH (27.0-33.0) pg MCHC (31.0-35.0) g/dl RDW (11.0-16.0) % Plt Count (160-400) X10*3/uL MPV (9.4-12.3) fL Immature Gran % (Auto) (0.0-0.4) % Neut % (Auto) (45-73) % Lymph % (Auto) (20-40) % [place] % (Auto) (2-11) % Eos % (Auto) (0-4) % Baso % (Auto) (0-2) % Lymph # (Auto) (1.2-4.9) X10*3/uL [place] # (Auto) (0.1-1.2) X10*3/uL Eos # (Auto) (0.0-0.4) X10*3/uL Baso # (Auto) (0.0-0.2) X10*3/uL Abs Immat Gran (auto) (0.00-0.03) X10*3/uL Absolute Neuts (auto) (2.0-8.3) x10*3/uL Absolute Nucleated RBC (0.0-0.012) X10*3/uL Nucleated RBC % (auto) (0.0-0.2) /100WBC VBG pH 7.31 L (7.32-7.43) VBG pCO2 38 mmHg VBG pO2 70 mmHg VBG HCO3 19 L (22-26) mmol/L VBG O2 Saturation 91.0 % VBG Base Excess -6.1 mmol/L Sodium (135-145) mmol/L Potassium (3.3-5.1) mmol/L Chloride (96-108) mmol/L Carbon Dioxide (22-29) mmol/L Anion Gap (12-20) BUN (9-16) mg/dL Creatinine (0.5-1.4) mg/dL Estim Creat Clear Calc Estimated GFR POC Glucose (60-115) mg/dL Random Glucose (60-115) mg/dL Lactic Acid 3.2 H* (0.5-2.0) mmol/L Lactic Acid F/U @ 2Hr (0.5-2.0) mmol/L Lactic Acid F/U @ 4Hr (0.5-2.0) mmol/L Calcium (8.4-10.2) mg/dL Magnesium (1.6-2.6) mg/dL Total Bilirubin (0.0-1.0) mg/dL Direct Bilirubin (0.0-0.5) mg/dL AST (5-31) U/L ALT (0-31) U/L Alkaline Phosphatase (39-117) U/L Total Creatine Kinase (26-140) U/L Troponin I High Sens (<3.5-17.0) ng/L B-Natriuretic Peptide (<100) pg/mL Total Protein (6.5-8.0) g/dL Albumin (3.5-5.0) g/dL Urine Color Urine Appearance Urine pH (5.0-8.0) Ur Specific Adrian (1.005-1.025) Urine Protein (NEG-TRACE) MG/DL Urine Glucose (UA) (NEG) MG/DL Urine Ketones (NEG) MG/DL Urine Blood (NEG) Urine Nitrite (NEG) Ur Leukocyte Esterase (NEG) Urine RBC (0) /HPF Urine WBC (0-4) /HPF Urine WBC Clumps Ur Squamous Epith Cells /LPF Ur Renal Epithelial Cell /LPF Urine Bacteria /LPF Granular Casts /LPF Waxy Casts /LPF Urine Mucus /LPF Salicylates Cancelled (15-30) mg/dL Urine Opiates Screen (Not Detect) Urine Fentanyl Screen (Not Detect) Acetaminophen Cancelled (<30) mcg/mL Ur Barbiturates Screen (Not Detect) Ur Phencyclidine Scrn (Not Detect) Ur Amphetamines Screen (Not Detect) U Benzodiazepines Scrn (Not Detect) Urine Cocaine Screen (Not Detect) U Marijuana (THC) Screen (Not Detect) Ethyl Alcohol Cancelled mg/dL Acetone, Qual (Negative) COVID-19 ([facility]) (Negative) COVID-19 Clin Com 03/28/22 03/28/22 03/28/22 Range/Units 20:09 20:09 20:09 WBC (4.8-10.8) X10*3/uL RBC (4.20-5.50) X10*6/uL Hgb (12.0-16.0) g/dl Hct (37.0-47.0) % MCV (80.0-98.0) fL MCH (27.0-33.0) pg MCHC (31.0-35.0) g/dl RDW (11.0-16.0) % Plt Count (160-400) X10*3/uL MPV (9.4-12.3) fL Immature Gran % (Auto) (0.0-0.4) % Neut % (Auto) (45-73) % Lymph % (Auto) (20-40) % [place] % (Auto) (2-11) % Eos % (Auto) (0-4) % Baso % (Auto) (0-2) % Lymph # (Auto) (1.2-4.9) X10*3/uL [place] # (Auto) (0.1-1.2) X10*3/uL Eos # (Auto) (0.0-0.4) X10*3/uL Baso # (Auto) (0.0-0.2) X10*3/uL Abs Immat Gran (auto) (0.00-0.03) X10*3/uL Absolute Neuts (auto) (2.0-8.3) x10*3/uL Absolute Nucleated RBC (0.0-0.012) X10*3/uL Nucleated RBC % (auto) (0.0-0.2) /100WBC VBG pH (7.32-7.43) VBG pCO2 mmHg VBG pO2 mmHg VBG HCO3 (22-26) mmol/L VBG O2 Saturation % VBG Base Excess mmol/L Sodium (135-145) mmol/L Potassium (3.3-5.1) mmol/L Chloride (96-108) mmol/L Carbon Dioxide (22-29) mmol/L Anion Gap (12-20) BUN (9-16) mg/dL Creatinine (0.5-1.4) mg/dL Estim Creat Clear Calc Estimated GFR POC Glucose (60-115) mg/dL Random Glucose (60-115) mg/dL Lactic Acid (0.5-2.0) mmol/L Lactic Acid F/U @ 2Hr (0.5-2.0) mmol/L Lactic Acid F/U @ 4Hr (0.5-2.0) mmol/L Calcium (8.4-10.2) mg/dL Magnesium (1.6-2.6) mg/dL Total Bilirubin (0.0-1.0) mg/dL Direct Bilirubin (0.0-0.5) mg/dL AST (5-31) U/L ALT (0-31) U/L Alkaline Phosphatase (39-117) U/L Total Creatine Kinase (26-140) U/L Troponin I High Sens < 3.5 (<3.5-17.0) ng/L B-Natriuretic Peptide (<100) pg/mL Total Protein (6.5-8.0) g/dL Albumin (3.5-5.0) g/dL Urine Color Urine Appearance Urine pH (5.0-8.0) Ur Specific [place] (1.005-1.025) Urine Protein (NEG-TRACE) MG/DL Urine Glucose (UA) (NEG) MG/DL Urine Ketones (NEG) MG/DL Urine Blood (NEG) Urine Nitrite (NEG) Ur Leukocyte Esterase (NEG) Urine RBC (0) /HPF Urine WBC (0-4) /HPF Urine WBC Clumps Ur Squamous Epith Cells /LPF Ur Renal Epithelial Cell /LPF Urine Bacteria /LPF Granular Casts /LPF Waxy Casts /LPF Urine Mucus /LPF Salicylates (15-30) mg/dL Urine Opiates Screen (Not Detect) Urine Fentanyl Screen (Not Detect) Acetaminophen (<30) mcg/mL Ur Barbiturates Screen (Not Detect) Ur Phencyclidine Scrn (Not Detect) Ur Amphetamines Screen (Not Detect) U Benzodiazepines Scrn (Not Detect) Urine Cocaine Screen (Not Detect) U Marijuana (THC) Screen (Not Detect) Ethyl Alcohol mg/dL Acetone, Qual Negative (Negative) COVID-19 ([facility]) Negative (Negative) COVID-19 Clin Com See Note 03/28/22 03/28/22 03/28/22 Range/Units 20:59 22:30 22:30 WBC (4.8-10.8) X10*3/uL RBC (4.20-5.50) X10*6/uL Hgb (12.0-16.0) g/dl Hct (37.0-47.0) % MCV (80.0-98.0) fL MCH (27.0-33.0) pg MCHC (31.0-35.0) g/dl RDW (11.0-16.0) % Plt Count (160-400) X10*3/uL MPV (9.4-12.3) fL Immature Gran % (Auto) (0.0-0.4) % Neut % (Auto) (45-73) % Lymph % (Auto) (20-40) % [place] % (Auto) (2-11) % Eos % (Auto) (0-4) % Baso % (Auto) (0-2) % Lymph # (Auto) (1.2-4.9) X10*3/uL [place] # (Auto) (0.1-1.2) X10*3/uL Eos # (Auto) (0.0-0.4) X10*3/uL Baso # (Auto) (0.0-0.2) X10*3/uL Abs Immat Gran (auto) (0.00-0.03) X10*3/uL Absolute Neuts (auto) (2.0-8.3) x10*3/uL Absolute Nucleated RBC (0.0-0.012) X10*3/uL Nucleated RBC % (auto) (0.0-0.2) /100WBC VBG pH (7.32-7.43) VBG pCO2 mmHg VBG pO2 mmHg VBG HCO3 (22-26) mmol/L VBG O2 Saturation % VBG Base Excess mmol/L Sodium (135-145) mmol/L Potassium (3.3-5.1) mmol/L Chloride (96-108) mmol/L Carbon Dioxide (22-29) mmol/L Anion Gap (12-20) BUN (9-16) mg/dL Creatinine (0.5-1.4) mg/dL Estim Creat Clear Calc Estimated GFR POC Glucose 205 H (60-115) mg/dL Random Glucose (60-115) mg/dL Lactic Acid (0.5-2.0) mmol/L Lactic Acid F/U @ 2Hr (0.5-2.0) mmol/L Lactic Acid F/U @ 4Hr (0.5-2.0) mmol/L Calcium (8.4-10.2) mg/dL Magnesium (1.6-2.6) mg/dL Total Bilirubin (0.0-1.0) mg/dL Direct Bilirubin (0.0-0.5) mg/dL AST (5-31) U/L ALT (0-31) U/L Alkaline Phosphatase (39-117) U/L Total Creatine Kinase (26-140) U/L Troponin I High Sens (<3.5-17.0) ng/L B-Natriuretic Peptide (<100) pg/mL Total Protein (6.5-8.0) g/dL Albumin (3.5-5.0) g/dL Urine Color YELLOW Urine Appearance CLOUDY Urine pH 6.0 (5.0-8.0) Ur Specific Adrian 1.025 (1.005-1.025) Urine Protein NEG (NEG-TRACE) MG/DL Urine Glucose (UA) 250 H (NEG) MG/DL Urine Ketones NEG (NEG) MG/DL Urine Blood TRACE (NEG) Urine Nitrite NEG (NEG) Ur Leukocyte Esterase 1+ H (NEG) Urine RBC 1-4 (0) /HPF Urine WBC 30-49 H (0-4) /HPF Urine WBC Clumps NOTED Ur Squamous Epith Cells TRACE /LPF Ur Renal Epithelial Cell 1+ /LPF Urine Bacteria 4+ /LPF Granular Casts 1-4 /LPF Waxy Casts 0-2 /LPF Urine Mucus 2+ /LPF Salicylates (15-30) mg/dL Urine Opiates Screen Not Detected (Not Detect) Urine Fentanyl Screen POSITIVE H (Not Detect) Acetaminophen (<30) mcg/mL Ur Barbiturates Screen Not Detected (Not Detect) Ur Phencyclidine Scrn Not Detected (Not Detect) Ur Amphetamines Screen Not Detected (Not Detect) U Benzodiazepines Scrn Not Detected (Not Detect) Urine Cocaine Screen Not Detected (Not Detect) U Marijuana (THC) Screen Not Detected (Not Detect) Ethyl Alcohol mg/dL Acetone, Qual (Negative) COVID-19 ([facility]) (Negative) COVID-19 Clin Com 03/28/22 03/29/22 Range/Units 23:39 04:50 WBC (4.8-10.8) X10*3/uL RBC (4.20-5.50) X10*6/uL Hgb (12.0-16.0) g/dl Hct (37.0-47.0) % MCV (80.0-98.0) fL MCH (27.0-33.0) pg MCHC (31.0-35.0) g/dl RDW (11.0-16.0) % Plt Count (160-400) X10*3/uL MPV (9.4-12.3) fL Immature Gran % (Auto) (0.0-0.4) % Neut % (Auto) (45-73) % Lymph % (Auto) (20-40) % [place] % (Auto) (2-11) % Eos % (Auto) (0-4) % Baso % (Auto) (0-2) % Lymph # (Auto) (1.2-4.9) X10*3/uL [place] # (Auto) (0.1-1.2) X10*3/uL Eos # (Auto) (0.0-0.4) X10*3/uL Baso # (Auto) (0.0-0.2) X10*3/uL Abs Immat Gran (auto) (0.00-0.03) X10*3/uL Absolute Neuts (auto) (2.0-8.3) x10*3/uL Absolute Nucleated RBC (0.0-0.012) X10*3/uL Nucleated RBC % (auto) (0.0-0.2) /100WBC VBG pH (7.32-7.43) VBG pCO2 mmHg VBG pO2 mmHg VBG HCO3 (22-26) mmol/L VBG O2 Saturation % VBG Base Excess mmol/L Sodium (135-145) mmol/L Potassium (3.3-5.1) mmol/L Chloride (96-108) mmol/L Carbon Dioxide (22-29) mmol/L Anion Gap (12-20) BUN (9-16) mg/dL Creatinine (0.5-1.4) mg/dL Estim Creat Clear Calc Estimated GFR POC Glucose (60-115) mg/dL Random Glucose (60-115) mg/dL Lactic Acid (0.5-2.0) mmol/L Lactic Acid F/U @ 2Hr 2.8 H* (0.5-2.0) mmol/L Lactic Acid F/U @ 4Hr 1.1 (0.5-2.0) mmol/L Calcium (8.4-10.2) mg/dL Magnesium (1.6-2.6) mg/dL Total Bilirubin (0.0-1.0) mg/dL Direct Bilirubin (0.0-0.5) mg/dL AST (5-31) U/L ALT (0-31) U/L Alkaline Phosphatase (39-117) U/L Total Creatine Kinase (26-140) U/L Troponin I High Sens (<3.5-17.0) ng/L B-Natriuretic Peptide (<100) pg/mL Total Protein (6.5-8.0) g/dL Albumin (3.5-5.0) g/dL Urine Color Urine Appearance Urine pH (5.0-8.0) Ur Specific Adrian (1.005-1.025) Urine Protein (NEG-TRACE) MG/DL Urine Glucose (UA) (NEG) MG/DL Urine Ketones (NEG) MG/DL Urine Blood (NEG) Urine Nitrite (NEG) Ur Leukocyte Esterase (NEG) Urine RBC (0) /HPF Urine WBC (0-4) /HPF Urine WBC Clumps Ur Squamous Epith Cells /LPF Ur Renal Epithelial Cell /LPF Urine Bacteria /LPF Granular Casts /LPF Waxy Casts /LPF Urine Mucus /LPF Salicylates (15-30) mg/dL Urine Opiates Screen (Not Detect) Urine Fentanyl Screen (Not Detect) Acetaminophen (<30) mcg/mL Ur Barbiturates Screen (Not Detect) Ur Phencyclidine Scrn (Not Detect) Ur Amphetamines Screen (Not Detect) U Benzodiazepines Scrn (Not Detect) Urine Cocaine Screen (Not Detect) U Marijuana (THC) Screen (Not Detect) Ethyl Alcohol mg/dL Acetone, Qual (Negative) COVID-19 ([facility]) (Negative) COVID-19 Clin Com <Elisabeth Walsh MD - Last Filed: 03/29/22 05:51> Lab Results 03/28/22 03/28/22 03/28/22 Range/Units 16:52 16:52 16:52 WBC 13.3 H (4.8-10.8) X10*3/uL RBC 4.73 (4.20-5.50) X10*6/uL Hgb 13.2 (12.0-16.0) g/dl Hct 40.0 (37.0-47.0) % MCV 84.6 (80.0-98.0) fL MCH 27.9 (27.0-33.0) pg MCHC 33.0 (31.0-35.0) g/dl RDW 13.4 (11.0-16.0) % Plt Count 175 (160-400) X10*3/uL MPV 13.0 H (9.4-12.3) fL Immature Gran % (Auto) 0.5 H (0.0-0.4) % Neut % (Auto) 83.2 H (45-73) % Lymph % (Auto) 9.4 L (20-40) % [place] % (Auto) 6.2 (2-11) % Eos % (Auto) 0.5 (0-4) % Baso % (Auto) 0.2 (0-2) % Lymph # (Auto) 1.3 (1.2-4.9) X10*3/uL [place] # (Auto) 0.8 (0.1-1.2) X10*3/uL Eos # (Auto) 0.1 (0.0-0.4) X10*3/uL Baso # (Auto) 0.0 (0.0-0.2) X10*3/uL Abs Immat Gran (auto) 0.07 H (0.00-0.03) X10*3/uL Absolute Neuts (auto) 11.1 H (2.0-8.3) x10*3/uL Absolute Nucleated RBC 0.000 (0.0-0.012) X10*3/uL Nucleated RBC % (auto) 0.0 (0.0-0.2) /100WBC VBG pH (7.32-7.43) VBG pCO2 mmHg VBG pO2 mmHg VBG HCO3 (22-26) mmol/L VBG O2 Saturation % VBG Base Excess mmol/L Sodium 137 (135-145) mmol/L Potassium 5.3 H (3.3-5.1) mmol/L Chloride 106 (96-108) mmol/L Carbon Dioxide 19 L (22-29) mmol/L Anion Gap 17 (12-20) BUN 19 H D (9-16) mg/dL Creatinine 1.23 (0.5-1.4) mg/dL Estim Creat Clear Calc 70.8 Estimated GFR 46 POC Glucose (60-115) mg/dL Random Glucose 437 H* (60-115) mg/dL Lactic Acid (0.5-2.0) mmol/L Lactic Acid F/U @ 2Hr (0.5-2.0) mmol/L Lactic Acid F/U @ 4Hr (0.5-2.0) mmol/L Calcium 8.8 (8.4-10.2) mg/dL Magnesium 2.0 (1.6-2.6) mg/dL Total Bilirubin 0.4 (0.0-1.0) mg/dL Direct Bilirubin < 0.2 (0.0-0.5) mg/dL AST 69 H (5-31) U/L ALT 65 H (0-31) U/L Alkaline Phosphatase 143 H (39-117) U/L Total Creatine Kinase 76 (26-140) U/L Troponin I High Sens < 3.5 (<3.5-17.0) ng/L B-Natriuretic Peptide 75 (<100) pg/mL Total Protein 6.7 (6.5-8.0) g/dL Albumin 3.8 (3.5-5.0) g/dL Urine Color Urine Appearance Urine pH (5.0-8.0) Ur Specific Adrian (1.005-1.025) Urine Protein (NEG-TRACE) MG/DL Urine Glucose (UA) (NEG) MG/DL Urine Ketones (NEG) MG/DL Urine Blood (NEG) Urine Nitrite (NEG) Ur Leukocyte Esterase (NEG) Urine RBC (0) /HPF Urine WBC (0-4) /HPF Urine WBC Clumps Ur Squamous Epith Cells /LPF Ur Renal Epithelial Cell /LPF Urine Bacteria /LPF Granular Casts /LPF Waxy Casts /LPF Urine Mucus /LPF Salicylates < 5.0 L (15-30) mg/dL Urine Opiates Screen (Not Detect) Urine Fentanyl Screen (Not Detect) Acetaminophen < 1 (<30) mcg/mL Ur Barbiturates Screen (Not Detect) Ur Phencyclidine Scrn (Not Detect) Ur Amphetamines Screen (Not Detect) U Benzodiazepines Scrn (Not Detect) Urine Cocaine Screen (Not Detect) U Marijuana (THC) Screen (Not Detect) Ethyl Alcohol < 10 mg/dL Acetone, Qual (Negative) COVID-19 ([facility]) (Negative) COVID-19 Clin Com 03/28/22 03/28/22 03/28/22 Range/Units 16:52 16:57 17:55 WBC (4.8-10.8) X10*3/uL RBC (4.20-5.50) X10*6/uL Hgb (12.0-16.0) g/dl Hct (37.0-47.0) % MCV (80.0-98.0) fL MCH (27.0-33.0) pg MCHC (31.0-35.0) g/dl RDW (11.0-16.0) % Plt Count (160-400) X10*3/uL MPV (9.4-12.3) fL Immature Gran % (Auto) (0.0-0.4) % Neut % (Auto) (45-73) % Lymph % (Auto) (20-40) % [place] % (Auto) (2-11) % Eos % (Auto) (0-4) % Baso % (Auto) (0-2) % Lymph # (Auto) (1.2-4.9) X10*3/uL [place] # (Auto) (0.1-1.2) X10*3/uL Eos # (Auto) (0.0-0.4) X10*3/uL Baso # (Auto) (0.0-0.2) X10*3/uL Abs Immat Gran (auto) (0.00-0.03) X10*3/uL Absolute Neuts (auto) (2.0-8.3) x10*3/uL Absolute Nucleated RBC (0.0-0.012) X10*3/uL Nucleated RBC % (auto) (0.0-0.2) /100WBC VBG pH 7.31 L (7.32-7.43) VBG pCO2 38 mmHg VBG pO2 70 mmHg VBG HCO3 19 L (22-26) mmol/L VBG O2 Saturation 91.0 % VBG Base Excess -6.1 mmol/L Sodium (135-145) mmol/L Potassium (3.3-5.1) mmol/L Chloride (96-108) mmol/L Carbon Dioxide (22-29) mmol/L Anion Gap (12-20) BUN (9-16) mg/dL Creatinine (0.5-1.4) mg/dL Estim Creat Clear Calc Estimated GFR POC Glucose (60-115) mg/dL Random Glucose (60-115) mg/dL Lactic Acid 3.2 H* (0.5-2.0) mmol/L Lactic Acid F/U @ 2Hr (0.5-2.0) mmol/L Lactic Acid F/U @ 4Hr (0.5-2.0) mmol/L Calcium (8.4-10.2) mg/dL Magnesium (1.6-2.6) mg/dL Total Bilirubin (0.0-1.0) mg/dL Direct Bilirubin (0.0-0.5) mg/dL AST (5-31) U/L ALT (0-31) U/L Alkaline Phosphatase (39-117) U/L Total Creatine Kinase (26-140) U/L Troponin I High Sens (<3.5-17.0) ng/L B-Natriuretic Peptide (<100) pg/mL Total Protein (6.5-8.0) g/dL Albumin (3.5-5.0) g/dL Urine Color Urine Appearance Urine pH (5.0-8.0) Ur Specific [place] (1.005-1.025) Urine Protein (NEG-TRACE) MG/DL Urine Glucose (UA) (NEG) MG/DL Urine Ketones (NEG) MG/DL Urine Blood (NEG) Urine Nitrite (NEG) Ur Leukocyte Esterase (NEG) Urine RBC (0) /HPF Urine WBC (0-4) /HPF Urine WBC Clumps Ur Squamous Epith Cells /LPF Ur Renal Epithelial Cell /LPF Urine Bacteria /LPF Granular Casts /LPF Waxy Casts /LPF Urine Mucus /LPF Salicylates Cancelled (15-30) mg/dL Urine Opiates Screen (Not Detect) Urine Fentanyl Screen (Not Detect) Acetaminophen Cancelled (<30) mcg/mL Ur Barbiturates Screen (Not Detect) Ur Phencyclidine Scrn (Not Detect) Ur Amphetamines Screen (Not Detect) U Benzodiazepines Scrn (Not Detect) Urine Cocaine Screen (Not Detect) U Marijuana (THC) Screen (Not Detect) Ethyl Alcohol Cancelled mg/dL Acetone, Qual (Negative) COVID-19 ([facility]) (Negative) COVID-19 Clin Com 03/28/22 03/28/22 03/28/22 Range/Units 20:09 20:09 20:09 WBC (4.8-10.8) X10*3/uL RBC (4.20-5.50) X10*6/uL Hgb (12.0-16.0) g/dl Hct (37.0-47.0) % MCV (80.0-98.0) fL MCH (27.0-33.0) pg MCHC (31.0-35.0) g/dl RDW (11.0-16.0) % Plt Count (160-400) X10*3/uL MPV (9.4-12.3) fL Immature Gran % (Auto) (0.0-0.4) % Neut % (Auto) (45-73) % Lymph % (Auto) (20-40) % [place] % (Auto) (2-11) % Eos % (Auto) (0-4) % Baso % (Auto) (0-2) % Lymph # (Auto) (1.2-4.9) X10*3/uL [place] # (Auto) (0.1-1.2) X10*3/uL Eos # (Auto) (0.0-0.4) X10*3/uL Baso # (Auto) (0.0-0.2) X10*3/uL Abs Immat Gran (auto) (0.00-0.03) X10*3/uL Absolute Neuts (auto) (2.0-8.3) x10*3/uL Absolute Nucleated RBC (0.0-0.012) X10*3/uL Nucleated RBC % (auto) (0.0-0.2) /100WBC VBG pH (7.32-7.43) VBG pCO2 mmHg VBG pO2 mmHg VBG HCO3 (22-26) mmol/L VBG O2 Saturation % VBG Base Excess mmol/L Sodium (135-145) mmol/L Potassium (3.3-5.1) mmol/L Chloride (96-108) mmol/L Carbon Dioxide (22-29) mmol/L Anion Gap (12-20) BUN (9-16) mg/dL Creatinine (0.5-1.4) mg/dL Estim Creat Clear Calc Estimated GFR POC Glucose (60-115) mg/dL Random Glucose (60-115) mg/dL Lactic Acid (0.5-2.0) mmol/L Lactic Acid F/U @ 2Hr (0.5-2.0) mmol/L Lactic Acid F/U @ 4Hr (0.5-2.0) mmol/L Calcium (8.4-10.2) mg/dL Magnesium (1.6-2.6) mg/dL Total Bilirubin (0.0-1.0) mg/dL Direct Bilirubin (0.0-0.5) mg/dL AST (5-31) U/L ALT (0-31) U/L Alkaline Phosphatase (39-117) U/L Total Creatine Kinase (26-140) U/L Troponin I High Sens < 3.5 (<3.5-17.0) ng/L B-Natriuretic Peptide (<100) pg/mL Total Protein (6.5-8.0) g/dL Albumin (3.5-5.0) g/dL Urine Color Urine Appearance Urine pH (5.0-8.0) Ur Specific [place] (1.005-1.025) Urine Protein (NEG-TRACE) MG/DL Urine Glucose (UA) (NEG) MG/DL Urine Ketones (NEG) MG/DL Urine Blood (NEG) Urine Nitrite (NEG) Ur Leukocyte Esterase (NEG) Urine RBC (0) /HPF Urine WBC (0-4) /HPF Urine WBC Clumps Ur Squamous Epith Cells /LPF Ur Renal Epithelial Cell /LPF Urine Bacteria /LPF Granular Casts /LPF Waxy Casts /LPF Urine Mucus /LPF Salicylates (15-30) mg/dL Urine Opiates Screen (Not Detect) Urine Fentanyl Screen (Not Detect) Acetaminophen (<30) mcg/mL Ur Barbiturates Screen (Not Detect) Ur Phencyclidine Scrn (Not Detect) Ur Amphetamines Screen (Not Detect) U Benzodiazepines Scrn (Not Detect) Urine Cocaine Screen (Not Detect) U Marijuana (THC) Screen (Not Detect) Ethyl Alcohol mg/dL Acetone, Qual Negative (Negative) COVID-19 ([facility]) Negative (Negative) COVID-19 Clin Com See Note 03/28/22 03/28/22 03/28/22 Range/Units 20:59 22:30 22:30 WBC (4.8-10.8) X10*3/uL RBC (4.20-5.50) X10*6/uL Hgb (12.0-16.0) g/dl Hct (37.0-47.0) % MCV (80.0-98.0) fL MCH (27.0-33.0) pg MCHC (31.0-35.0) g/dl RDW (11.0-16.0) % Plt Count (160-400) X10*3/uL MPV (9.4-12.3) fL Immature Gran % (Auto) (0.0-0.4) % Neut % (Auto) (45-73) % Lymph % (Auto) (20-40) % [place] % (Auto) (2-11) % Eos % (Auto) (0-4) % Baso % (Auto) (0-2) % Lymph # (Auto) (1.2-4.9) X10*3/uL [place] # (Auto) (0.1-1.2) X10*3/uL Eos # (Auto) (0.0-0.4) X10*3/uL Baso # (Auto) (0.0-0.2) X10*3/uL Abs Immat Gran (auto) (0.00-0.03) X10*3/uL Absolute Neuts (auto) (2.0-8.3) x10*3/uL Absolute Nucleated RBC (0.0-0.012) X10*3/uL Nucleated RBC % (auto) (0.0-0.2) /100WBC VBG pH (7.32-7.43) VBG pCO2 mmHg VBG pO2 mmHg VBG HCO3 (22-26) mmol/L VBG O2 Saturation % VBG Base Excess mmol/L Sodium (135-145) mmol/L Potassium (3.3-5.1) mmol/L Chloride (96-108) mmol/L Carbon Dioxide (22-29) mmol/L Anion Gap (12-20) BUN (9-16) mg/dL Creatinine (0.5-1.4) mg/dL Estim Creat Clear Calc Estimated GFR POC Glucose 205 H (60-115) mg/dL Random Glucose (60-115) mg/dL Lactic Acid (0.5-2.0) mmol/L Lactic Acid F/U @ 2Hr (0.5-2.0) mmol/L Lactic Acid F/U @ 4Hr (0.5-2.0) mmol/L Calcium (8.4-10.2) mg/dL Magnesium (1.6-2.6) mg/dL Total Bilirubin (0.0-1.0) mg/dL Direct Bilirubin (0.0-0.5) mg/dL AST (5-31) U/L ALT (0-31) U/L Alkaline Phosphatase (39-117) U/L Total Creatine Kinase (26-140) U/L Troponin I High Sens (<3.5-17.0) ng/L B-Natriuretic Peptide (<100) pg/mL Total Protein (6.5-8.0) g/dL Albumin (3.5-5.0) g/dL Urine Color YELLOW Urine Appearance CLOUDY Urine pH 6.0 (5.0-8.0) Ur Specific Adrian 1.025 (1.005-1.025) Urine Protein NEG (NEG-TRACE) MG/DL Urine Glucose (UA) 250 H (NEG) MG/DL Urine Ketones NEG (NEG) MG/DL Urine Blood TRACE (NEG) Urine Nitrite NEG (NEG) Ur Leukocyte Esterase 1+ H (NEG) Urine RBC 1-4 (0) /HPF Urine WBC 30-49 H (0-4) /HPF Urine WBC Clumps NOTED Ur Squamous Epith Cells TRACE /LPF Ur Renal Epithelial Cell 1+ /LPF Urine Bacteria 4+ /LPF Granular Casts 1-4 /LPF Waxy Casts 0-2 /LPF Urine Mucus 2+ /LPF Salicylates (15-30) mg/dL Urine Opiates Screen Not Detected (Not Detect) Urine Fentanyl Screen POSITIVE H (Not Detect) Acetaminophen (<30) mcg/mL Ur Barbiturates Screen Not Detected (Not Detect) Ur Phencyclidine Scrn Not Detected (Not Detect) Ur Amphetamines Screen Not Detected (Not Detect) U Benzodiazepines Scrn Not Detected (Not Detect) Urine Cocaine Screen Not Detected (Not Detect) U Marijuana (THC) Screen Not Detected (Not Detect) Ethyl Alcohol mg/dL Acetone, Qual (Negative) COVID-19 ([facility]) (Negative) COVID-19 Clin Com 03/28/22 03/29/22 Range/Units 23:39 04:50 WBC (4.8-10.8) X10*3/uL RBC (4.20-5.50) X10*6/uL Hgb (12.0-16.0) g/dl Hct (37.0-47.0) % MCV (80.0-98.0) fL MCH (27.0-33.0) pg MCHC (31.0-35.0) g/dl RDW (11.0-16.0) % Plt Count (160-400) X10*3/uL MPV (9.4-12.3) fL Immature Gran % (Auto) (0.0-0.4) % Neut % (Auto) (45-73) % Lymph % (Auto) (20-40) % [place] % (Auto) (2-11) % Eos % (Auto) (0-4) % Baso % (Auto) (0-2) % Lymph # (Auto) (1.2-4.9) X10*3/uL [place] # (Auto) (0.1-1.2) X10*3/uL Eos # (Auto) (0.0-0.4) X10*3/uL Baso # (Auto) (0.0-0.2) X10*3/uL Abs Immat Gran (auto) (0.00-0.03) X10*3/uL Absolute Neuts (auto) (2.0-8.3) x10*3/uL Absolute Nucleated RBC (0.0-0.012) X10*3/uL Nucleated RBC % (auto) (0.0-0.2) /100WBC VBG pH (7.32-7.43) VBG pCO2 mmHg VBG pO2 mmHg VBG HCO3 (22-26) mmol/L VBG O2 Saturation % VBG Base Excess mmol/L Sodium (135-145) mmol/L Potassium (3.3-5.1) mmol/L Chloride (96-108) mmol/L Carbon Dioxide (22-29) mmol/L Anion Gap (12-20) BUN (9-16) mg/dL Creatinine (0.5-1.4) mg/dL Estim Creat Clear Calc Estimated GFR POC Glucose (60-115) mg/dL Random Glucose (60-115) mg/dL Lactic Acid (0.5-2.0) mmol/L Lactic Acid F/U @ 2Hr 2.8 H* (0.5-2.0) mmol/L Lactic Acid F/U @ 4Hr 1.1 (0.5-2.0) mmol/L Calcium (8.4-10.2) mg/dL Magnesium (1.6-2.6) mg/dL Total Bilirubin (0.0-1.0) mg/dL Direct Bilirubin (0.0-0.5) mg/dL AST (5-31) U/L ALT (0-31) U/L Alkaline Phosphatase (39-117) U/L Total Creatine Kinase (26-140) U/L Troponin I High Sens (<3.5-17.0) ng/L B-Natriuretic Peptide (<100) pg/mL Total Protein (6.5-8.0) g/dL Albumin (3.5-5.0) g/dL Urine Color Urine Appearance Urine pH (5.0-8.0) Ur Specific Adrian (1.005-1.025) Urine Protein (NEG-TRACE) MG/DL Urine Glucose (UA) (NEG) MG/DL Urine Ketones (NEG) MG/DL Urine Blood (NEG) Urine Nitrite (NEG) Ur Leukocyte Esterase (NEG) Urine RBC (0) /HPF Urine WBC (0-4) /HPF Urine WBC Clumps Ur Squamous Epith Cells /LPF Ur Renal Epithelial Cell /LPF Urine Bacteria /LPF Granular Casts /LPF Waxy Casts /LPF Urine Mucus /LPF Salicylates (15-30) mg/dL Urine Opiates Screen (Not Detect) Urine Fentanyl Screen (Not Detect) Acetaminophen (<30) mcg/mL Ur Barbiturates Screen (Not Detect) Ur Phencyclidine Scrn (Not Detect) Ur Amphetamines Screen (Not Detect) U Benzodiazepines Scrn (Not Detect) Urine Cocaine Screen (Not Detect) U Marijuana (THC) Screen (Not Detect) Ethyl Alcohol mg/dL Acetone, Qual (Negative) COVID-19 ([facility]) (Negative) COVID-19 Clin Com <Vasyl ADDY Campos - Last Filed: 03/29/22 08:36> ECG Data Attestation: I personally reviewed and interpreted this ECG as follows: <ADDY Renner - Last Filed: 03/28/22 23:37> Prior ECG tracings: available for review <ADDY Renner - Last Filed: 03/28/22 23:37> Interpretation: Normal sinus rhythm, ventricular rate 70 beats per minute, prolonged QTC 487 MS, normal NC interval, no ST segment elevations or depressions. <ADDY Renner Last Filed: 03/28/22 23:37> Critical Care Time Critical Care Time Critical Care Time: Yes <ADDY Renner Last Filed: 03/28/22 23:37> Total Critical Care Time: 36 <ADDY Renner - Last Filed: 03/28/22 23:37> Attestation: I have personally provided critical care time exclusive of time spent on separately billable procedures. Time includes review of lab data, radiology results, frequent bedside reassessments, and monitoring for potential decompensa tion. Intervention performed as documented. <ADYD Renner Last Filed: 03/28/22 23:37> Discharge Plan Discharge Clinical Impression: Acute hyperglycemia, Weakness, Fall, Polypharmacy, UTI (urinary tract infection) <ADDY Renner Last Filed: 03/28/22 23:37> Patient Disposition: Still a Patient <ADDY Renner Last Filed: 03/28/22 23:37> Prescriptions: No Action enalapril maleate 10 mg tablet 1 tab PO DAILY clonidine HCl 0.3 mg tablet 1 tab PO BEDTIME omeprazole 40 mg capsule,delayed release(DR/EC) 1 cap PO DAILY aspirin 81 mg tablet,delayed release (DR/EC) 1 tab PO DAILY prazosin 5 mg capsule PO lorazepam 2 mg tablet 1 tab PO BID PRN (Reason: Anxiety) trazodone 150 mg tablet 1 tab PO BEDTIME montelukast 10 mg tablet 1 tab PO DAILY ziprasidone HCl 40 mg capsule 1 cap PO BID paroxetine HCl 40 mg tablet PO ziprasidone HCl 60 mg capsule 1 cap PO BID topiramate 100 mg tablet PO metformin 500 mg tablet extended release 24 hr 2 tab PO BID hydroxyzine pamoate 25 mg capsule 1 cap PO TID insulin lispro 100 unit/mL insulin pen subcut rosuvastatin 5 mg tablet 1 tab PO DAILY metoprolol tartrate 25 mg tablet 1 tab PO BID Belsomra 20 mg tablet 1 tab PO BEDTIME PRN (Reason: Sleep) Trulicity 1.5 mg/0.5 mL pen injector subcut Lantus U-100 Insulin 100 unit/mL solution 20 unit subcut DAILY <DADY Renner - Last Filed: 03/28/22 23:37>
[2022-03-28 17:00] LABS: MANUAL DIFF FLAG NO
[2022-03-28 17:04] LABS: VBG Base Excess -6.1 mmol/L; VBG HCO3 19 mmol/L (22-26); VBG pCO2 38 mmHg; VBG pH 7.31 (7.32-7.43); VBG pO2 70 mmHg
[2022-03-28 17:06] LABS: Basophils Percent Auto 0.2 % (0-2); Eosinophils Absolute Auto 0.1 X10*3/uL (0.0-0.4); Eosinophils Percent Auto 0.5 % (0-4); Hemoglobin 13.2 g/dl (12.0-16.0); Imm Gran Abs Auto 0.07 X10*3/uL (0.00-0.03); Imm Gran Pct Auto 0.5 % (0.0-0.4); Lymphocytes Absolute Auto 1.3 X10*3/uL (1.2-4.9); Lymphocytes Percent Auto 9.4 % (20-40); Mean Corpuscular Hemoglobin 27.9 pg (27.0-33.0); Mean Corpuscular Volume 84.6 fL (80.0-98.0); Monocytes Absolute Auto 0.8 X10*3/uL (0.1-1.2); Monocytes Percent Auto 6.2 % (2-11); Neutrophils Absolute Auto 11.1 x10*3/uL (2.0-8.3); Neutrophils Percent Auto 83.2 % (45-73); Platelet Count 175 X10*3/uL (160-400); Red Blood Count 4.73 X10*6/uL (4.20-5.50); Red Cell Distribution Width 13.4 % (11.0-16.0); White Blood Count 13.3 X10*3/uL (4.8-10.8)
[2022-03-28 17:07] LABS: Venous Blood Gas Refer to POC result
[2022-03-28 17:26] LABS: B Type Natriuretic Peptide 75 pg/mL (<100); Troponin-I High Sensitivity < 3.5 ng/L (<3.5-17.0)
[2022-03-28 17:47] LABS: Acetaminophen LAB < 1 mcg/mL (<30); Alanine Aminotransferase 65 U/L (0-31); Albumin Level 3.8 g/dL (3.5-5.0); Alkaline Phosphatase 143 U/L (39-117); Anion Gap 17 (12-20); Aspartate Amino Transferase 69 U/L (5-31); Bilirubin Direct < 0.2 mg/dL (0.0-0.5); Bilirubin Total 0.4 mg/dL (0.0-1.0); Blood Urea Nitrogen 19 mg/dL (9-16); Calcium 8.8 mg/dL (8.4-10.2); Carbon Dioxide 19 mmol/L (22-29); Chloride 106 mmol/L (96-108); Creatinine Clr Calc Pharmacy 70.8; Estimated Glomerular Filt Rate 46; Ethanol < 10 mg/dL; Glucose Random 437 mg/dL (60-115); Potassium 5.3 mmol/L (3.3-5.1); Salicylate < 5.0 mg/dL (15-30); Sodium 137 mmol/L (135-145); Total Protein 6.7 g/dL (6.5-8.0)
[2022-03-28] MEDS: 0.9 % Sodium Chloride 1,000 ML 999 ML IVCONT (18:25)
[2022-03-28] MEDS: Insulin Lispro 100 UNIT/ML 3 ML VIAL 15 UNIT SUBCUT (18:25)
[2022-03-28 18:34] LABS: Lactic Acid 3.2 mmol/L (0.5-2.0)
[2022-03-28 20:04] LABS: Reflex Lactate? Lactic Acid Added
[2022-03-28 20:23] LABS: Acetone, serum QL Negative (Negative)
[2022-03-28 20:30] LABS: COVID-19 Test Negative (Negative)
[2022-03-28 20:34] LABS: Troponin-I High Sensitivity < 3.5 ng/L (<3.5-17.0)
[2022-03-28 20:57] VITALS: BP 122/72; PULSE 74; RESP 18; O2SAT 94
[2022-03-28 22:37] LABS: Appearance Urine CLOUDY; Color Urine YELLOW; Glucose Urine UA 250 MG/DL (NEG); Leukocyte Esterase Urine 1+ (NEG); Nitrite Urine NEG (NEG); Specific Gravity - Urine 1.025 (1.005-1.025); UACC Culture Trigger YES; Urine Blood TRACE (NEG); Urine Ketones NEG (NEG); Urine Protein NEG (NEG-TRACE)
[2022-03-28 22:50] LABS: Amphetamine Screen Urine Not Detected (Not Detect); Barbiturates, Urine Not Detected (Not Detect); Benzodiazepines Screen Urine Not Detected (Not Detect); Cannabinoid Screen Urine Not Detected (Not Detect); Cocaine Screen Urine Not Detected (Not Detect); Fentanyl, urine POSITIVE (Not Detect); Opiate Screen Urine Not Detected (Not Detect); Phencyclidine Screen Urine Not Detected (Not Detect)
[2022-03-28 22:53] LABS: Bacteria Urine 4+ /LPF; Mucus Urine 2+ /LPF; Renal Epithelial Cells Urine 1+ /LPF; Squamous Epithelial Cell Urine TRACE /LPF; WBC Clumps Urine NOTED; WBC Urine 30-49 /HPF (0-4); Waxy Casts Urine 0-2 /LPF
[2022-03-29] VITALS (9 sets, daily range): BP systolic 88–124; BP diastolic 37–80; PULSE 80–90; RESP 18–20; TEMP 36.6; O2SAT 94–98
[2022-03-29 00:17] LABS: ~Lactic Acid-LAB USE ONLY 2.8 mmol/L (0.5-2.0)
[2022-03-29 01:44] LABS: Reflex Lactate? 2 Y
[2022-03-29] MEDS: cefTRIAXone sodium 1 GM in 0.9 % Sodium Chloride 50 ML IV (02:01)
[2022-03-29] MEDS: 0.9 % Sodium Chloride 1,000 ML 999 ML IVCONT (02:02)
[2022-03-29 05:08] LABS: ~Lactic Acid-LAB USE ONLY 1.1 mmol/L (0.5-2.0)
[2022-03-29 05:35] LABS: Glucose, Whole Blood 205 mg/dL (60-115)
--- NOTE | 2022-03-29 05:56 | PC.NURSE ---
I assumed nursing care of Va at 0300. Prior to that I assisted with her care multiple times while she was in [facility] and while I was the architecture instructor. Va has been resting in her stretcher. At the beginning of my shift at 1900 Va was extremely drowsy - she opened her eyes to verbal stimuli and responded verbally but would quickly close her eyes and fall back to sleep. Her family was at the bedside throughout this assisting with her care. She is irish speaking only. She makes eye contact with staff and with her family and is cooperative. She is able to ambulate (with one assist initially and as my shift progressed with one stand by assist) from her stretcher to the bedside commode with slow but steady gait. She was incontinent of small amounts of soft, brown stool multiple times while in the stretcher. Her skin was cleansed, linens were changed. Her assisted with this multiple times. Respirations are non-labored, no cyanosis, her room air sat's have been WNL since I met her at the beginning of my shift (I am unsure of what her sat's were prior to that). Pt is currently sleeping and is aware that she is remaining in the department until she has a case management eval.
[2022-03-29 08:36] LABS: Glucose, Whole Blood 202 mg/dL (60-115)
--- NOTE | 2022-03-29 09:34 | PHA.MEDREC ---
Pharmacy Consult ? Medication Reconciliation Pharmacy has completed the medication reconciliation. Pt very poor historian. At first was very unclear about insulin doses, then insisted on 72 units of lantus midday and 28 units of humalog in morning and at night. Pt also states that she takes 40mg oxycodone twice daily from [facility] but no history in claim or PDMP.
[2022-03-29] MEDS: Omeprazole 40 MG CAPSULE.DR PO (11:25)
[2022-03-29] MEDS: Montelukast Sodium 10 MG TABLET PO (11:25)
[2022-03-29] MEDS: Metoprolol Tartrate 25 MG TABLET PO ×2 (11:25→20:51)
[2022-03-29] MEDS: LORazepam 1 MG TABLET 2 MG PO ×2 (11:44→21:36)
[2022-03-29] MEDS: PARoxetine HCL 40 MG TABLET PO (11:45)
[2022-03-29] MEDS: Ziprasidone 40 MG CAPSULE PO (11:45)
--- NOTE | 2022-03-29 15:01 | PC.NURSE ---
Vasyl valera aware of BP 88/58 - verbal order for 1l ivf NNOW
[2022-03-29] MEDS: 0.9 % Sodium Chloride 1,000 ML 999 ML IV (16:14)
[2022-03-29 18:17] LABS: Glucose, Whole Blood 271 mg/dL (60-115)
[2022-03-29] MEDS: cloNIDine HCL 0.1 MG TABLET 0.3 MG PO (20:50)
[2022-03-29] MEDS: Topiramate 100 MG TABLET 150 MG PO (20:51)
[2022-03-29] MEDS: hydrOXYzine HCL 25 MG TABLET PO (20:51)
[2022-03-29] MEDS: traZODone HCL 50 MG TABLET 150 MG PO (20:51)
[2022-03-29] MEDS: Atorvastatin Calcium 20 MG TABLET PO (20:51)
[2022-03-29 20:52] LABS: Glucose, Whole Blood 288 mg/dL (60-115)
[2022-03-29] MEDS: Insulin Lispro 100 UNIT/ML 3 ML VIAL 28 UNIT SUBCUT (20:58)
[2022-03-29] MEDS: Insulin Glargine,Hum.rec.anlog 100 UNIT/ML 10 ML VIAL 72 UNIT SUBCUT (20:58)
[2022-03-29] MEDS: Prazosin HCL 5 MG CAPSULE PO (21:36)
--- NOTE | 2022-03-29 21:43 | PC.NURSE ---
bedtime meds given - pt assisted to bedside commode. no current complaints. call diaz within reach. will continue to monitor
--- NOTE | 2022-03-29 22:43 | MHC.CM.ED ---
Addendum entered by Jasmin Krause 03/30/22 12:47: Only [facility] expressing interest. ? if in withdrawal. Explained that pt was at [facility] for psych, not for detox. Awaiting response. No other facilities offering a bed. CM to follow for d/c needs. Original Note: CM met with patient. PT recommending STR. Pt lives with . Uses a cane. No services presently. Had [employer] MA[employer] OPERATOR 1 hour/day, but no longer has one. HCP completed. Copies given Uploaded into [facility] and [facility]. HCP/ Clyde Porter ([phone]). PCP Sandi Sneed. Referrals placed. Pt would like something locally, preferably in [place]. CM to follow for d/c needs.
[2022-03-30 06:21] VITALS: BP 126/72; PULSE 83; RESP 20; O2SAT 97
[2022-03-30] MEDS: Omeprazole 40 MG CAPSULE.DR PO (06:35)
[2022-03-30 07:37] LABS: Glucose, Whole Blood 221 mg/dL (60-115)
[2022-03-30] MEDS: Metoprolol Tartrate 25 MG TABLET PO (09:47)
[2022-03-30] MEDS: Montelukast Sodium 10 MG TABLET PO (09:47)
[2022-03-30] MEDS: Topiramate 100 MG TABLET 150 MG PO (09:48)
[2022-03-30] MEDS: PARoxetine HCL 40 MG TABLET PO (09:48)
[2022-03-30] MEDS: Enalapril Maleate 10 MG TABLET PO (09:48)
[2022-03-30] MEDS: Ziprasidone 40 MG CAPSULE PO (09:51)
[2022-03-30] MEDS: Insulin Lispro 100 UNIT/ML 3 ML VIAL 28 UNIT SUBCUT (10:47)
[2022-03-30 13:30] LABS: Glucose, Whole Blood 245 mg/dL (60-115)
[2022-03-30 17:19] VITALS: BP 119/62; PULSE 76; RESP 18; TEMP 36.8; O2SAT 98
--- NOTE | 2022-03-30 17:33 | MHC.CM.ED ---
Pt wants to go home. States will call her PCP and have PT on an outpatient basis. CM and RN ambulated pt. Stood erect and ambulated with steady gait. C/O mild pain. Requests discharge. Arianne DALY aware.
== END 2022-03-30 17:36 | disposition home or self-care (01) ==
PROVIDERS: Physician Assistant; Emergency Provider Emergency Medicine Emergency Medical Services
DX: E11.65 Type 2 diabetes mellitus with hyperglycemia (principal); N39.0 Urinary tract infection, site not specified; B96.20 Unspecified Escherichia coli [E. coli] as the cause of diseases classified elsewhere; R53.1 Weakness; S80.212A Abrasion, left knee, initial encounter; S80.211A Abrasion, right knee, initial encounter; W19.XXXA Unspecified fall, initial encounter; E87.2 Acidosis; R09.02 Hypoxemia; I10 Essential (primary) hypertension; F32.A Depression, unspecified; E66.9 Obesity, unspecified; Z68.41 Body mass index [BMI] 40.0-44.9, adult; Y93.9 Activity, unspecified; Y92.013 Bedroom of single-family (private) house as the place of occurrence of the external cause; Y99.9 Unspecified external cause status; Z79.4 Long term (current) use of insulin; Z79.899 Other long term (current) drug therapy; Z79.82 Long term (current) use of aspirin; Z79.02 Long term (current) use of antithrombotics/antiplatelets; Z20.822 Contact with and (suspected) exposure to COVID-19
CPT/HCPCS: 36415; 51701; 70450; 71045; 72125; 80048; 80076; 80143; 80179; 80307; 81001; 82009; 82077; 82550; 82803; 82947; 83605; 83735; 83880; 84484; 85025; 87040; 87086; 87088; 87186; 87635; 93005; 96361; 96365; 96366; 97162; 99285; J0696

== ENCOUNTER 2022-05-01 15:44 | Emergency (ER) | payer OTHER, SELFPAY ==
[2022-05-01 15:55] VITALS: BP 134/78; PULSE 82; O2SAT 97
== END 2022-05-01 20:35 | disposition left against medical advice (07) ==
LOC: HO.ED 20:18
PROVIDERS: Emergency Provider Emergency Medicine
DX: R10.9 Unspecified abdominal pain (principal)

== ENCOUNTER 2022-05-18 10:24 | Emergency (ER) | payer OTHER, SELFPAY ==
--- NOTE | ~2022-05-18 | XR_ITS ---
EXAMINATION: XR CHEST CLINICAL INFORMATION: Pleuritic chest pain. COMPARISON: 03/28/2022 chest radiograph. TECHNIQUE: 2 views of the chest were obtained. FINDINGS: No significant abnormality is noted involving the heart, lungs, mediastinum, bony thorax or soft tissues. XR/XR chest 2V IMPRESSION: No acute cardiopulmonary process.
--- NOTE | ~2022-05-18 | CT_ITS ---
EXAMINATION: CT ABDOMEN AND PELVIS WITHOUT CONTRAST CLINICAL INFORMATION: Right middle back pain, UTI, history of renal stone. COMPARISON: CT scan of the abdomen and pelvis dated 09/30/2021. TECHNIQUE: Multidetector volumetric imaging was performed from the superior aspect of the liver through the pubic symphysis. Sagittal and coronal reformatted images were obtained on the technologist's workstation. Lack of intravenous and oral contrast limits visceral evaluation. This CT examination was performed using dose optimization techniques as appropriate, variously including the following: *Automated exposure control *Adjustment of mA and/or kV according to patient size (this includes techniques or standardized protocols for targeted exams where dose is matched to indication/reason for exam; i.e. extremities or head) *Use of iterative reconstruction technique DLP: 763 mGy-cm FINDINGS: LUNG BASES: The visualized lung bases are unremarkable. LIVER, GALLBLADDER, AND BILIARY TREE: No hepatic abnormality. Status post cholecystectomy. No biliary ductal dilatation. PANCREAS: Unremarkable. SPLEEN: Unremarkable. ADRENAL GLANDS: Unremarkable. KIDNEYS AND URETERS: Nonobstructing punctate intrarenal calculi are seen bilaterally. A cortically based coarse calcification is seen medially in the interpolar right kidney. No hydroureteronephrosis. BLADDER: Unremarkable. GASTROINTESTINAL TRACT: The stomach, small bowel and appendix are unremarkable. Mild diverticulosis is seen in the sigmoid colon. The rectum is unremarkable. ABDOMINAL WALL: No significant hernia is appreciated. LYMPH NODES: No lymphadenopathy. VASCULAR: Unremarkable. PELVIC VISCERA: Unremarkable. OSSEOUS STRUCTURES: Unremarkable. CT/CT abdomen pelvis wo IV con IMPRESSION: 1. Nonobstructing intrarenal calculi bilaterally. No hydroureteronephrosis. 2. Mild sigmoid diverticulosis without evidence for acute diverticulitis.
[2022-05-18 10:43] VITALS: BP 100/72; BP 102/63; PULSE 100; PULSE 88; RESP 16; TEMP 36.6; O2SAT 98; BMI 41.8
--- NOTE | 2022-05-18 11:12 | ED.BACK ---
HPI - Back Pain/Injury General Chief Complaint: Back Pain/Injury Stated Complaint: BACK PAIN X 4 DAYS Time Seen by Provider: 05/18/22 10:36 Source: patient and EMS Mode of arrival: EMS Limitations: no limitations History of Present Illness HPI Narrative: ?52 yo female with history of fibromyalgia, asthma, diabetes, migraines, HTN, chronic low back pain x 10 years, hx UTI, hx SI who presents to the ER for evaluation of middle back pain that started 4 days ago. She cannot recall what she was doing when it started but it has gotten worse each day. The pain is different that her usual low back pain and located in the middle R>L of her back. It is worse with movement and deep breaths. She denies any urinary symptoms. No abdominal pain, chest pain, shortness of breath, nausea, vomiting. No blood in her urine. She called her doctor to tell about her back pain, they recommended she take Tylenol but she says it has worked for so she never took it. She was seen by pain management in December, she had MRI of her lumbar spine in January and never followed back up. She is not on any medications for her fibromyalgia. MD elicited complaint: back pain Pertinent past history: prior back pain Onset (ago): day(s) (4) Timing: constant Severity: severe Pain scale (0-10): 10 Similar Symptoms Previously: Yes Quality: stabbing and aching Location: right upper back (middle back ) Radiation: none Exacerbating factors: movement and deep breaths Relieving factors: none Context: unknown Associated symptoms: denies other symptoms Work related injury: No Related Data Home Medications Medication Instructions Recorded Confirmed insulin glargine 100 unit/mL 72 unit subcut DAILY@1300 07/22/20 03/29/22 subcutaneous solution (Lantus U-100 Insulin) clonidine HCl 0.3 mg tablet 1 tab PO BEDTIME 03/29/22 03/29/22 dulaglutide 1.5 mg/0.5 mL 1.5 mg subcut FR 03/29/22 03/29/22 subcutaneous pen injector (Trulicity) enalapril maleate 10 mg tablet 1 tab PO DAILY@1300 03/29/22 03/29/22 hydroxyzine pamoate 25 mg capsule 1 cap PO BEDTIME 03/29/22 03/29/22 insulin lispro 100 unit/mL 28 unit subcut BID 03/29/22 03/29/22 subcutaneous pen lorazepam 2 mg tablet 1 tab PO BID PRN Anxiety 03/29/22 03/29/22 metoprolol tartrate 25 mg tablet 1 tab PO BID 03/29/22 03/29/22 montelukast 10 mg tablet 1 tab PO DAILY 03/29/22 03/29/22 omeprazole 40 mg capsule,delayed 1 cap PO DAILY@0630 03/29/22 03/29/22 release paroxetine HCl 40 mg tablet 1 tab PO DAILY 03/29/22 03/29/22 prazosin 5 mg capsule 1 cap PO BEDTIME 03/29/22 03/29/22 rosuvastatin 5 mg tablet 1 tab PO BEDTIME 03/29/22 03/29/22 suvorexant 20 mg tablet (Belsomra) 1 tab PO BEDTIME PRN Sleep 03/29/22 03/29/22 topiramate 100 mg tablet 1.5 tab PO BID 03/29/22 03/29/22 trazodone 150 mg tablet 1 tab PO BEDTIME 03/29/22 03/29/22 ziprasidone HCl 40 mg capsule 1 cap PO BID 03/29/22 03/29/22 Previous Rx's Medication Instructions Recorded cefuroxime axetil 500 mg tablet 500 mg PO BID 7 days #14 tabs 03/30/22 cefuroxime axetil 250 mg tablet 250 mg PO BID 7 days #14 tabs 05/18/22 cyclobenzaprine 10 mg tablet 10 mg PO TID PRN muscle spasm #10 05/18/22 tabs lidocaine 5 % topical patch 1 patch topical DAILY #15 ea 05/18/22 Allergies Allergy/AdvReac Type Severity Reaction Status Date / Time acetaminophen [Percocet] Allergy Unknown Unknown Verified 01/03/22 09:34 oxycodone [From PERCOCET] Allergy Unknown N/V Verified 01/03/22 09:34 tramadol Allergy Unknown Unknown Verified 01/03/22 09:34 Review of Systems Review of Systems: Constitutional: No Fever, No Chills ENT/Mouth: No sore throat, No Rhinorrhea, No Swallowing Difficulty Eyes: No Eye Pain, No Swelling, No Redness Cardiovascular: No Chest Pain, No SOB, No Orthopnea, No Edema Respiratory: No Cough, No Sputum, No Wheezing, No dyspnea Gastrointestinal: No Nausea, No Vomiting, No Diarrhea, No abdominal Pain, No Hematochezia, No Melena Genitourinary: No Dysuria, No Urinary Frequency, No Hematuria Musculoskeletal: + joint pain, + Myalgias Skin: No Skin Lesions, No rash Neuro: No Weakness, No Numbness, No Dizziness, No Headache Psych: No Anxiety/Panic, No Depression Heme/Lymph: No Bruising, No Lymphadenopathy Endocrine: No Polyuria, No Polydipsia [facility] Past Medical History Medical History Chronic asthma Diabetes Fibromyalgia Hypertension Migraines Surgical History History of carpal tunnel release Hx of breast reduction, elective Social History Social History Alcohol intake: unknown Patient Tobacco Use Status: Never used Tobacco Advance Directives: Yes Advance Directives on File: Yes Advance Directives Date on File: 03/29/22 Current occupational status: unemployed Current occupation: right handed Physical Exam Vital Signs: Vital Signs: Last Vital Signs Temp 97.9 F 05/18/22 10:43 Pulse 88 05/18/22 10:43 Resp 16 05/18/22 10:43 BP 102/63 05/18/22 10:43 Pulse Ox 98 05/18/22 10:43 O2 Del Method 05/18/22 10:43 BMI result Body Mass Index 41.8 Appearance: Alert. Oriented X3. No acute distress. Eyes: Pupils equal, round and reactive to light. ENT: Pharynx normal. Neck: Normal inspection. Neck supple. CVS: Normal heart rate and rhythm. Pulses normal. Respiratory: No respiratory distress. Breath sounds normal. Abdomen: Soft and nontender. +BS x4 Back: multiple areas of soft tissue tenderness throughout the entire back, palpable muscle spasm of the right paraspinous muscle in the middle thoracic area. Skin: Skin warm and dry. Normal skin color. Normal skin turgor. No rashes. Extremities: No lower extremity edema. Neuro: Oriented X 3. No motor deficit. No sensory deficit. Course Course Course Narrative: 52 yo female w/ hx of fibromyalgia, asthma, diabetes, migraines, HTN, chronic low back pain x 10 years, hx UTI, hx SI who presented to the ER for evaluation of middle right back pain that started 4 days ago. Worse with movement and palpation. No trauma or injury. Pain is not exactly located over her costovertebral angle and is more central to the paraspinous muscle but cannot rule out kidney stone or pyelonephritis. Will get urinalysis and basic lab workup. Will treat for muscular pain with Flexeril, Toradol and Zoloft possible patch. Reevaluation(s) Reevaluation #1: Urinalysis is consistent with infection. There is also calcium oxalate crystals. Her WBC count is 12. Will get CT scan for further evaluation. Reevaluation #2: CT scan without any ureteral kidney stones. She has mild diverticulosis without diverticulitis. She reports no improvement in her pain with Toradol, Flexeril, Tylenol, antibiotics. Her drug screen is positive for fentanyl. She adamantly denies using street drugs or any fentanyl. This was positive on her previous U tox as well when she presented altered. Not comfortable providing any narcotics for pain control given this history. [employer] was used to discuss this with the patient she was not happy. She wants to go home. We will discharge her with short course of Flexeril, UTI treatment with Ceftin and have her follow-up with her primary care doctor as well as pain management who she has not followed up with since she has had her MRI in January. Importance of this was discussed with the patient she expressed understanding. Stable for DC home. MDM - Back Pain/Injury Lab Data Result diagrams: 05/18/22 10:46 05/18/22 Unknown Labs: Lab Results 05/18/22 05/18/22 05/18/22 Range/Units 10:46 Unknown Unknown WBC 12.0 H (4.8-10.8) X10*3/uL RBC 5.33 (4.20-5.50) X10*6/uL Hgb 14.4 (12.0-16.0) g/dl Hct 45.7 (37.0-47.0) % MCV 85.7 (80.0-98.0) fL MCH 27.0 (27.0-33.0) pg MCHC 31.5 (31.0-35.0) g/dl RDW 13.4 (11.0-16.0) % Plt Count 207 (160-400) X10*3/uL MPV 12.3 (9.4-12.3) fL Immature Gran % (Auto) 0.6 H (0.0-0.4) % Neut % (Auto) 67.2 (45-73) % Lymph % (Auto) 23.2 (20-40) % [place] % (Auto) 6.3 (2-11) % Eos % (Auto) 2.3 (0-4) % Baso % (Auto) 0.4 (0-2) % Lymph # (Auto) 2.8 (1.2-4.9) X10*3/uL [place] # (Auto) 0.8 (0.1-1.2) X10*3/uL Eos # (Auto) 0.3 (0.0-0.4) X10*3/uL Baso # (Auto) 0.1 (0.0-0.2) X10*3/uL Abs Immat Gran (auto) 0.07 H (0.00-0.03) X10*3/uL Absolute Neuts (auto) 8.1 (2.0-8.3) x10*3/uL Absolute Nucleated RBC 0.000 (0.0-0.012) X10*3/uL Nucleated RBC % (auto) 0.0 (0.0-0.2) /100WBC Sodium 139 (135-145) mmol/L Potassium 3.6 D (3.3-5.1) mmol/L Chloride 106 (96-108) mmol/L Carbon Dioxide 21 L (22-29) mmol/L Anion Gap 16 (12-20) BUN 12 (9-16) mg/dL Creatinine 0.84 (0.5-1.4) mg/dL Estim Creat Clear Calc 94.1 Estimated GFR > 60 Random Glucose 229 H (60-115) mg/dL Calcium 9.3 (8.4-10.2) mg/dL Magnesium 1.6 (1.6-2.6) mg/dL Total Bilirubin 0.4 (0.0-1.0) mg/dL Direct Bilirubin 0.2 (0.0-0.5) mg/dL AST 63 H (5-31) U/L ALT 46 H (0-31) U/L Alkaline Phosphatase 131 H (39-117) U/L Total Protein 7.3 (6.5-8.0) g/dL Albumin 4.1 (3.5-5.0) g/dL Urine Color Yellow Urine Appearance Cloudy Urine pH 6.0 (5.0-9.0) Ur Specific [place] 1.025 (1.005-1.025) Urine Protein Trace (Neg-Trace) mg/dL Urine Glucose (UA) Negative (Negative) mg/dL Urine Ketones Negative (Negative) mg/dL Urine Blood Negative (Negative) Urine Nitrite Negative (Negative) Ur Leukocyte Esterase Moderate (2+) H (Negative) Urine RBC 0-2 (0-2) /HPF Urine WBC >50 H (0-5) /HPF Ur Squamous Epith Cells 11-20 (0-2) /HPF Calcium Oxalate Crystal Present Urine Bacteria 2+ (None Seen) Hyaline Casts 0-2 (0-2) /LPF Urine Opiates Screen (Not Detect) Urine Fentanyl Screen (Not Detect) Ur Barbiturates Screen (Not Detect) Ur Phencyclidine Scrn (Not Detect) Ur Amphetamines Screen (Not Detect) U Benzodiazepines Scrn (Not Detect) Urine Cocaine Screen (Not Detect) U Marijuana (THC) Screen (Not Detect) 05/18/22 Range/Units Unknown WBC (4.8-10.8) X10*3/uL RBC (4.20-5.50) X10*6/uL Hgb (12.0-16.0) g/dl Hct (37.0-47.0) % MCV (80.0-98.0) fL MCH (27.0-33.0) pg MCHC (31.0-35.0) g/dl RDW (11.0-16.0) % Plt Count (160-400) X10*3/uL MPV (9.4-12.3) fL Immature Gran % (Auto) (0.0-0.4) % Neut % (Auto) (45-73) % Lymph % (Auto) (20-40) % [place] % (Auto) (2-11) % Eos % (Auto) (0-4) % Baso % (Auto) (0-2) % Lymph # (Auto) (1.2-4.9) X10*3/uL [place] # (Auto) (0.1-1.2) X10*3/uL Eos # (Auto) (0.0-0.4) X10*3/uL Baso # (Auto) (0.0-0.2) X10*3/uL Abs Immat Gran (auto) (0.00-0.03) X10*3/uL Absolute Neuts (auto) (2.0-8.3) x10*3/uL Absolute Nucleated RBC (0.0-0.012) X10*3/uL Nucleated RBC % (auto) (0.0-0.2) /100WBC Sodium (135-145) mmol/L Potassium (3.3-5.1) mmol/L Chloride (96-108) mmol/L Carbon Dioxide (22-29) mmol/L Anion Gap (12-20) BUN (9-16) mg/dL Creatinine (0.5-1.4) mg/dL Estim Creat Clear Calc Estimated GFR Random Glucose (60-115) mg/dL Calcium (8.4-10.2) mg/dL Magnesium (1.6-2.6) mg/dL Total Bilirubin (0.0-1.0) mg/dL Direct Bilirubin (0.0-0.5) mg/dL AST (5-31) U/L ALT (0-31) U/L Alkaline Phosphatase (39-117) U/L Total Protein (6.5-8.0) g/dL Albumin (3.5-5.0) g/dL Urine Color Urine Appearance Urine pH (5.0-9.0) Ur Specific [place] (1.005-1.025) Urine Protein (Neg-Trace) mg/dL Urine Glucose (UA) (Negative) mg/dL Urine Ketones (Negative) mg/dL Urine Blood (Negative) Urine Nitrite (Negative) Ur Leukocyte Esterase (Negative) Urine RBC (0-2) /HPF Urine WBC (0-5) /HPF Ur Squamous Epith Cells (0-2) /HPF Calcium Oxalate Crystal Urine Bacteria (None Seen) Hyaline Casts (0-2) /LPF Urine Opiates Screen Not Detected (Not Detect) Urine Fentanyl Screen POSITIVE H (Not Detect) Ur Barbiturates Screen Not Detected (Not Detect) Ur Phencyclidine Scrn Not Detected (Not Detect) Ur Amphetamines Screen Not Detected (Not Detect) U Benzodiazepines Scrn Not Detected (Not Detect) Urine Cocaine Screen Not Detected (Not Detect) U Marijuana (THC) Screen Not Detected (Not Detect) Critical Care Time Critical Care Time Critical Care Time: No Discharge Plan Discharge Clinical Impression: Fibromyalgia, Back pain, Acute UTI Patient Disposition: Home, Self-Care Instructions: Urinary Tract Infection in Women (ED), Fibromyalgia (ED) Additional Instructions: Your CT scan did not show any acute findings that would explain your pain. You have a UTI. Take the prescribed antibiotic for this, complete the entire course. Recommend following back up with your primary care doctor and the pain management provider-name and number below. Recommend alternating doses of Motrin and Tylenol for your pain. Take the prescribed muscle relaxer as needed for pain. Use ice and/or heat to the area as needed for comfort. If you develop new or worsening symptoms call 911 or come back to the ER for further evaluation. Carpio tomograf?a computarizada no mostr? jairo?n hallazgo thang que pudiera explicar carpio dolor. Tienes carroll ITU. [place] el antibi?duy prescrito para esto, complete todo el curso. Recomiende hacer un seguimiento con carpio m?dico de atenci?n primaria y el nombre y el n?claudio del proveedor de control del dolor a continuaci?n. Recomiende dosis alternas de Motrin y Tylenol para carpio dolor. [place] el relajante muscular recetado seg?n sea necesario para el dolor. Use hielo y/o calor en el ?lauren seg?n sea necesario para carpio comodidad. Si desarrolla s?ntomas nuevos o que empeoran, llame al 911 o regrese a la don de emergencias para carroll evaluaci?n adicional. Prescriptions: New cefuroxime axetil 250 mg tablet 250 mg PO BID 7 Days Qty: 14 0RF cyclobenzaprine 10 mg tablet 10 mg PO TID PRN (Reason: muscle spasm) Qty: 10 0RF lidocaine 5 % adhesive patch,medicated 1 patch topical DAILY Qty: 15 0RF Rx Instructions: leave on most painful area for up to 12 hrs No Action enalapril maleate 10 mg tablet 1 tab PO DAILY@1300 clonidine HCl 0.3 mg tablet 1 tab PO BEDTIME omeprazole 40 mg capsule,delayed release(DR/EC) 1 cap PO DAILY@0630 prazosin 5 mg capsule 1 cap PO BEDTIME lorazepam 2 mg tablet 1 tab PO BID PRN (Reason: Anxiety) trazodone 150 mg tablet 1 tab PO BEDTIME montelukast 10 mg tablet 1 tab PO DAILY ziprasidone HCl 40 mg capsule 1 cap PO BID paroxetine HCl 40 mg tablet 1 tab PO DAILY topiramate 100 mg tablet 1.5 tab PO BID hydroxyzine pamoate 25 mg capsule 1 cap PO BEDTIME insulin lispro 100 unit/mL insulin pen 28 unit subcut BID rosuvastatin 5 mg tablet 1 tab PO BEDTIME metoprolol tartrate 25 mg tablet 1 tab PO BID Belsomra 20 mg tablet 1 tab PO BEDTIME PRN (Reason: Sleep) Trulicity 1.5 mg/0.5 mL pen injector 1.5 mg subcut FR cefuroxime axetil 500 mg tablet 500 mg PO BID 7 Days Qty: 14 0RF Lantus U-100 Insulin 100 unit/mL solution 72 unit subcut DAILY@1300 Referrals: [facility] [place] Pain Management [Provider Group] Print Language: Nauruan
[2022-05-18] MEDS: Cyclobenzaprine HCl 10 MG TABLET PO (11:14)
[2022-05-18] MEDS: Ketorolac Tromethamine 30 MG/ML VIAL IM (11:15)
[2022-05-18 11:37] LABS: Basophils Absolute Auto 0.1 X10*3/uL (0.0-0.2); Basophils Percent Auto 0.4 % (0-2); Eosinophils Absolute Auto 0.3 X10*3/uL (0.0-0.4); Eosinophils Percent Auto 2.3 % (0-4); Hematocrit 45.7 % (37.0-47.0); Hemoglobin 14.4 g/dl (12.0-16.0); Imm Gran Abs Auto 0.07 X10*3/uL (0.00-0.03); Imm Gran Pct Auto 0.6 % (0.0-0.4); Lymphocytes Absolute Auto 2.8 X10*3/uL (1.2-4.9); Lymphocytes Percent Auto 23.2 % (20-40); MANUAL DIFF FLAG NO; Mean Corpuscular HGB Conc 31.5 g/dl (31.0-35.0); Mean Corpuscular Volume 85.7 fL (80.0-98.0); Mean Platelet Volume 12.3 fL (9.4-12.3); Monocytes Absolute Auto 0.8 X10*3/uL (0.1-1.2); Monocytes Percent Auto 6.3 % (2-11); Neutrophils Absolute Auto 8.1 x10*3/uL (2.0-8.3); Neutrophils Percent Auto 67.2 % (45-73); Platelet Count 207 X10*3/uL (160-400); Red Blood Count 5.33 X10*6/uL (4.20-5.50); Red Cell Distribution Width 13.4 % (11.0-16.0)
[2022-05-18] MEDS: Lidocaine 4 % Patch ADH..PATCH 1 PATCH TRANSDERMA (11:47)
[2022-05-18 11:52] LABS: Appearance Urine Cloudy; Color Urine Yellow; Glucose Urine UA Negative (Negative); Leukocyte Esterase Urine Moderate (2+) (Negative); Nitrite Urine Negative (Negative); Specific Gravity - Urine 1.025 (1.005-1.025); UMIC TRIGGER UACC YES; Urine Blood Negative (Negative); Urine Ketones Negative (Negative); Urine Protein Trace mg/dL (Neg-Trace)
[2022-05-18 12:05] LABS: Alanine Aminotransferase 46 U/L (0-31); Albumin Level 4.1 g/dL (3.5-5.0); Alkaline Phosphatase 131 U/L (39-117); Anion Gap 16 (12-20); Aspartate Amino Transferase 63 U/L (5-31); Bilirubin Direct 0.2 mg/dL (0.0-0.5); Bilirubin Total 0.4 mg/dL (0.0-1.0); Blood Urea Nitrogen 12 mg/dL (9-16); Calcium 9.3 mg/dL (8.4-10.2); Carbon Dioxide 21 mmol/L (22-29); Chloride 106 mmol/L (96-108); Creatinine Clr Calc Pharmacy 94.1; Estimated Glomerular Filt Rate > 60; Glucose Random 229 mg/dL (60-115); Magnesium 1.6 mg/dL (1.6-2.6); Potassium 3.6 mmol/L (3.3-5.1); Sodium 139 mmol/L (135-145); Total Protein 7.3 g/dL (6.5-8.0)
[2022-05-18 12:08] LABS: Amphetamine Screen Urine Not Detected (Not Detect); Barbiturates, Urine Not Detected (Not Detect); Benzodiazepines Screen Urine Not Detected (Not Detect); Cannabinoid Screen Urine Not Detected (Not Detect); Cocaine Screen Urine Not Detected (Not Detect); Fentanyl, urine POSITIVE (Not Detect); Opiate Screen Urine Not Detected (Not Detect); Phencyclidine Screen Urine Not Detected (Not Detect)
[2022-05-18 12:19] LABS: Bacteria Urine 2+ (None Seen); Calcium Oxalate Crystals Urine Present; Hyaline Casts Urine 0-2 /LPF (0-2); RBC Urine 0-2 /HPF (0-2); UACC Culture Trigger YES; WBC Urine >50 /HPF (0-5)
[2022-05-18] MEDS: Acetaminophen 325 MG TABLET 975 MG PO (13:49)
== END 2022-05-18 14:44 | disposition home or self-care (01) ==
PROVIDERS: Physician Assistant; Emergency Provider Emergency Medicine
DX: M79.7 Fibromyalgia (principal); N39.0 Urinary tract infection, site not specified; M54.50 Low back pain, unspecified; I10 Essential (primary) hypertension; E11.9 Type 2 diabetes mellitus without complications; Z79.4 Long term (current) use of insulin; Z79.899 Other long term (current) drug therapy
CPT/HCPCS: 36415; 71046; 74176; 80048; 80076; 80307; 81001; 81003; 83735; 85025; 87086; 96372; 99284; J1885

== ENCOUNTER → 2022-07-23 09:32 | Outpatient (BNVA) | payer OTHER, SELFPAY | PROVIDERS: Visit Provider Anesthesiology | DX: M79.7 Fibromyalgia (principal); M54.16 Radiculopathy, lumbar region; M47.817 Spondylosis without myelopathy or radiculopathy, lumbosacral region | CPT/HCPCS: 99212 ==

== ENCOUNTER 2022-08-16 20:27 | Emergency (ER) | payer OTHER, SELFPAY ==
[2022-08-16 20:35] VITALS: BP 110/64; PULSE 108; RESP 18; O2SAT 97; BMI 51.8
--- NOTE | 2022-08-16 20:57 | ECG_ITS ---
Test Reason : chest pain Blood Pressure : / mmHG Vent. Rate : 097 BPM Atrial Rate : 097 BPM P-R Int : 156 ms QRS Dur : 092 ms QT Int : 396 ms P-R-T Axes : 026 006 015 degrees QTc Int : 502 ms Normal sinus rhythm Prolonged QT Abnormal ECG When compared with ECG of 28-MAR-2022 15:51, No significant change was found Referred By: Elisabeth Walsh Electronically Signed By:TONE CARLOS MD
--- NOTE | 2022-08-16 21:01 | ED_ITS ---
HPI - Chest Pain General Chief Complaint: Chest Pain Stated Complaint: chest pain Time Seen by Provider: 08/16/22 20:36 Source: patient Mode of arrival: EMS Limitations: no limitations History of Present Illness HPI narrative: Patient comes emergency room complaining of tachycardia, palpitations, no chest pain or shortness of breath. Patient states that she has had multiple episodes of tachycardia over the last 8 months. Patient states that her primary care physician already did a referral for Holter monitor in [place], but she has not gotten it yet, as she is waiting for appointment. Today, while patient was lying down, patient has palpitations that lasted for approximately 45 minutes. At this time, patient no longer having palpitations. Related Data Home Medications Medication Instructions Recorded Confirmed insulin glargine 100 unit/mL 72 unit subcut DAILY@1300 07/22/20 03/29/22 subcutaneous solution (Lantus U-100 Insulin) clonidine HCl 0.3 mg tablet 1 tab PO BEDTIME 03/29/22 03/29/22 dulaglutide 1.5 mg/0.5 mL 1.5 mg subcut FR 03/29/22 03/29/22 subcutaneous pen injector (Trulicity) enalapril maleate 10 mg tablet 1 tab PO DAILY@1300 03/29/22 03/29/22 hydroxyzine pamoate 25 mg capsule 1 cap PO BEDTIME 03/29/22 03/29/22 insulin lispro 100 unit/mL 28 unit subcut BID 03/29/22 03/29/22 subcutaneous pen lorazepam 2 mg tablet 1 tab PO BID PRN Anxiety 03/29/22 03/29/22 metoprolol tartrate 25 mg tablet 1 tab PO BID 03/29/22 03/29/22 montelukast 10 mg tablet 1 tab PO DAILY 03/29/22 03/29/22 omeprazole 40 mg capsule,delayed 1 cap PO DAILY@0630 03/29/22 03/29/22 release paroxetine HCl 40 mg tablet 1 tab PO DAILY 03/29/22 03/29/22 prazosin 5 mg capsule 1 cap PO BEDTIME 03/29/22 03/29/22 rosuvastatin 5 mg tablet 1 tab PO BEDTIME 03/29/22 03/29/22 suvorexant 20 mg tablet (Belsomra) 1 tab PO BEDTIME PRN Sleep 03/29/22 03/29/22 topiramate 100 mg tablet 1.5 tab PO BID 03/29/22 03/29/22 trazodone 150 mg tablet 1 tab PO BEDTIME 03/29/22 03/29/22 ziprasidone HCl 40 mg capsule 1 cap PO BID 03/29/22 03/29/22 Previous Rx's Medication Instructions Recorded cefuroxime axetil 500 mg tablet 500 mg PO BID 7 days #14 tabs 03/30/22 cefuroxime axetil 250 mg tablet 250 mg PO BID 7 days #14 tabs 05/18/22 cyclobenzaprine 10 mg tablet 10 mg PO TID PRN muscle spasm #10 05/18/22 tabs lidocaine 5 % topical patch 1 patch topical DAILY #15 ea 05/18/22 Allergies Allergy/AdvReac Type Severity Reaction Status Date / Time acetaminophen [Percocet] Allergy Unknown Unknown Verified 07/23/22 09:46 oxycodone [From PERCOCET] Allergy Unknown N/V Verified 07/23/22 09:46 tramadol Allergy Unknown Unknown Verified 07/23/22 09:46 Review of Systems Review of Systems: Constitutional : No Weight loss, No Fever, No Chills, No Night Sweats, No Fatigue, No Malaise ENT/Mouth : No Hearing loss, No Ear Pain, No Nasal Congestion, No Sinus Pain, No Hoarseness, No sore throat, No Rhinorrhea, No Swallowing Difficulty Eyes: No Eye Pain, No Swelling, No Redness, No Foreign Body, No Discharge, No Vision Changes Cardiovascular : No Chest Pain, No SOB, No Dyspnea on Exertion, No Orthopnea, No Edema, complaining of palpitations Respiratory : No Cough, No Sputum, No Wheezing, No Smoke Exposure, No Dyspnea Gastrointestinal : No Nausea, No Vomiting, No Diarrhea, No Constipation, No abdominal Pain, No Hematochezia, No Melena Genitourinary : no irregular bleeding, No Dysuria, No Urinary Frequency, No Hematuria, No Urinary Incontinence, No Urgency, No Flank Pain, No Urinary Flow Changes, No Hesitancy Musculoskeletal : No joint pain, No Myalgias, No Joint Swelling Skin : No Skin Lesions, No rash Neuro : No Weakness, No Numbness, No Paresthesias, No Loss of Consciousness, No Dizziness, No Headache Psych : No Anxiety/Panic, No Depression, No SI/HI/AH/VH, No Social Issues, Heme/Lymph: No Bruising, No Bleeding,No Lymphadenopathy Endocrine : No Polyuria, No Polydipsia, No Temperature Intolerance [facility] Past Medical History Medical History Chronic asthma Diabetes Fibromyalgia Hypertension Migraines Surgical History History of carpal tunnel release Hx of breast reduction, elective Social History Social History Alcohol intake: unknown Patient Tobacco Use Status: Never used Tobacco Advance Directives: No Advance Directives Information Provided: No Advance Directives Date on File: 03/29/22 Current occupational status: unemployed Current occupation: right handed Physical Exam Vital Signs: Vital Signs: Last Vital Signs Temp 98.3 F 08/17/22 00:55 Pulse 89 08/17/22 00:37 Resp 14 08/17/22 00:37 BP 110/75 08/17/22 00:55 Pulse Ox 98 08/17/22 00:37 O2 Del Method 08/17/22 00:37 BMI result Body Mass Index 51.8 Const: Other: Appearance: Alert. Oriented X3. No acute distress. Eyes: Pupils equal, round and reactive to light. ENT: Pharynx normal. Neck: Normal inspection. Neck supple. No lymph nodes noted. No crepitus CVS: Normal heart rate and rhythm. Pulses normal. Normal S1 and S2 Respiratory: No respiratory distress. Breath sounds normal. No Wheezing. No rales Abdomen: Soft and nontender. No rigidity. No distention. Skin: Skin warm and dry. Normal skin color. Normal skin turgor. Extremities: No lower extremity edema. No Lacerations. No Rash Neuro: Oriented X 3. No motor deficit. No sensory deficit. Moving all extremities. No slurred speech. CN 2 through 12 grossly intact Psych: calm, cooperative, normal affect Course Course Course Narrative: At this time, patient is slightly tachycardic, regular rhythm. EKG and labs pe nding. Patient feels well, has not had any palpitations, chest pain or shortness of breath. Patient's blood glucose improved from 462-131. Patient is already on a significantly high dose of insulin. Patient will follow-up with her primary care physician. At this time, we will not increase her insulin. Patient has an appointment in a week and a half for Holter monitor Medications Administered Discontinued Medications Generic Name Dose Route Start Last Admin Trade Name Thierry PRN Reason Stop Dose Admin Sodium Chloride 2,000 mls @ 999 mls/hr 08/16/22 22:17 08/16/22 22:27 Ns IVCONT 08/17/22 00:17 999 mls/hr .Q2H1M ONE Administration Insulin Human Regular 10 unit 08/16/22 22:17 08/16/22 22:34 Insulin Regular, Human 100 Unit/Ml 3 Ml Vial IVPUSH 08/16/22 22:18 10 unit ONCE ONE Administration Medical Decision Making Lab Data Result Diagrams: 08/16/22 21:26 08/16/22 21:26 Labs: Lab Results 08/16/22 08/16/22 08/16/22 Range/Units 21:26 21:26 21:26 WBC 10.8 (4.8-10.8) X10*3/uL RBC 4.39 (4.20-5.50) X10*6/uL Hgb 12.6 (12.0-16.0) g/dl Hct 37.1 (37.0-47.0) % MCV 84.5 (80.0-98.0) fL MCH 28.7 (27.0-33.0) pg MCHC 34.0 (31.0-35.0) g/dl RDW 13.2 (11.0-16.0) % Plt Count 138 L D (160-400) X10*3/uL MPV 13.2 H (9.4-12.3) fL Immature Gran % (Auto) 0.4 (0.0-0.4) % Neut % (Auto) 69.2 (45-73) % Lymph % (Auto) 19.5 L (20-40) % Ransom % (Auto) 7.4 (2-11) % Eos % (Auto) 2.9 (0-4) % Baso % (Auto) 0.6 (0-2) % Lymph # (Auto) 2.1 (1.2-4.9) X10*3/uL Ransom # (Auto) 0.8 (0.1-1.2) X10*3/uL Eos # (Auto) 0.3 (0.0-0.4) X10*3/uL Baso # (Auto) 0.1 (0.0-0.2) X10*3/uL Abs Immat Gran (auto) 0.04 H (0.00-0.03) X10*3/uL Absolute Neuts (auto) 7.5 (2.0-8.3) x10*3/uL Absolute Nucleated RBC 0.000 (0.0-0.012) X10*3/uL Nucleated RBC % (auto) 0.0 (0.0-0.2) /100WBC Sodium 135 (135-145) mmol/L Potassium 4.0 (3.3-5.1) mmol/L Chloride 105 (96-108) mmol/L Carbon Dioxide 23 (22-29) mmol/L Anion Gap 11 L (12-20) BUN 12 (9-16) mg/dL Creatinine 1.03 (0.5-1.4) mg/dL Estim Creat Clear Calc 87.3 Estimated GFR 56 POC Glucose (60-115) mg/dL Random Glucose 460 H* (60-115) mg/dL Calcium 9.1 (8.4-10.2) mg/dL Total Bilirubin 0.3 (0.0-1.0) mg/dL Direct Bilirubin 0.2 (0.0-0.5) mg/dL AST 53 H (5-31) U/L ALT 39 H (0-31) U/L Alkaline Phosphatase 112 (39-117) U/L Troponin I High Sens < 3.5 (<3.5-17.0) ng/L B-Natriuretic Peptide (<100) pg/mL Total Protein 6.3 L (6.5-8.0) g/dL Albumin 3.7 (3.5-5.0) g/dL TSH 1.41 (0.32-4.0) uIU/mL COVID-19 ([facility]) (Negative) COVID-19 Clin Com 08/16/22 08/16/22 08/17/22 Range/Units 21:27 23:40 01:07 WBC (4.8-10.8) X10*3/uL RBC (4.20-5.50) X10*6/uL Hgb (12.0-16.0) g/dl Hct (37.0-47.0) % MCV (80.0-98.0) fL MCH (27.0-33.0) pg MCHC (31.0-35.0) g/dl RDW (11.0-16.0) % Plt Count (160-400) X10*3/uL MPV (9.4-12.3) fL Immature Gran % (Auto) (0.0-0.4) % Neut % (Auto) (45-73) % Lymph % (Auto) (20-40) % Ransom % (Auto) (2-11) % Eos % (Auto) (0-4) % Baso % (Auto) (0-2) % Lymph # (Auto) (1.2-4.9) X10*3/uL Ransom # (Auto) (0.1-1.2) X10*3/uL Eos # (Auto) (0.0-0.4) X10*3/uL Baso # (Auto) (0.0-0.2) X10*3/uL Abs Immat Gran (auto) (0.00-0.03) X10*3/uL Absolute Neuts (auto) (2.0-8.3) x10*3/uL Absolute Nucleated RBC (0.0-0.012) X10*3/uL Nucleated RBC % (auto) (0.0-0.2) /100WBC Sodium (135-145) mmol/L Potassium (3.3-5.1) mmol/L Chloride (96-108) mmol/L Carbon Dioxide (22-29) mmol/L Anion Gap (12-20) BUN (9-16) mg/dL Creatinine (0.5-1.4) mg/dL Estim Creat Clear Calc Estimated GFR POC Glucose 231 H (60-115) mg/dL Random Glucose (60-115) mg/dL Calcium (8.4-10.2) mg/dL Total Bilirubin (0.0-1.0) mg/dL Direct Bilirubin (0.0-0.5) mg/dL AST (5-31) U/L ALT (0-31) U/L Alkaline Phosphatase (39-117) U/L Troponin I High Sens (<3.5-17.0) ng/L B-Natriuretic Peptide < 10 (<100) pg/mL Total Protein (6.5-8.0) g/dL Albumin (3.5-5.0) g/dL TSH (0.32-4.0) uIU/mL COVID-19 ([facility]) Negative (Negative) COVID-19 Clin Com See Note Discharge Plan Discharge Clinical Impression: Palpitations Patient Disposition: Home, Self-Care Instructions: Heart Palpitations (ED) Additional Instructions: Please follow-up with your primary care physician tomorrow. If you have any worsening or new symptoms, please return to the emergency room or call 911 Prescriptions: No Action cefuroxime axetil 250 mg tablet 250 mg PO BID 7 Days Qty: 14 0RF cyclobenzaprine 10 mg tablet 10 mg PO TID PRN (Reason: muscle spasm) Qty: 10 0RF lidocaine 5 % adhesive patch,medicated 1 patch topical DAILY Qty: 15 0RF Rx Instructions: leave on most painful area for up to 12 hrs enalapril maleate 10 mg tablet 1 tab PO DAILY@1300 clonidine HCl 0.3 mg tablet 1 tab PO BEDTIME omeprazole 40 mg capsule,delayed release(DR/EC) 1 cap PO DAILY@0630 prazosin 5 mg capsule 1 cap PO BEDTIME lorazepam 2 mg tablet 1 tab PO BID PRN (Reason: Anxiety) trazodone 150 mg tablet 1 tab PO BEDTIME montelukast 10 mg tablet 1 tab PO DAILY ziprasidone HCl 40 mg capsule 1 cap PO BID paroxetine HCl 40 mg tablet 1 tab PO DAILY topiramate 100 mg tablet 1.5 tab PO BID hydroxyzine pamoate 25 mg capsule 1 cap PO BEDTIME insulin lispro 100 unit/mL insulin pen 28 unit subcut BID rosuvastatin 5 mg tablet 1 tab PO BEDTIME metoprolol tartrate 25 mg tablet 1 tab PO BID Belsomra 20 mg tablet 1 tab PO BEDTIME PRN (Reason: Sleep) Trulicity 1.5 mg/0.5 mL pen injector 1.5 mg subcut FR cefuroxime axetil 500 mg tablet 500 mg PO BID 7 Days Qty: 14 0RF Lantus U-100 Insulin 100 unit/mL solution 72 unit subcut DAILY@1300
[2022-08-16 21:35] LABS: Basophils Absolute Auto 0.1 X10*3/uL (0.0-0.2); Basophils Percent Auto 0.6 % (0-2); Hematocrit 37.1 % (37.0-47.0); Hemoglobin 12.6 g/dl (12.0-16.0); Imm Gran Abs Auto 0.04 X10*3/uL (0.00-0.03); Imm Gran Pct Auto 0.4 % (0.0-0.4); MANUAL DIFF FLAG NO; SCAN SMEAR FLAG 1
[2022-08-16 21:36] LABS: Eosinophils Absolute Auto 0.3 X10*3/uL (0.0-0.4); Eosinophils Percent Auto 2.9 % (0-4); Lymphocytes Absolute Auto 2.1 X10*3/uL (1.2-4.9); Lymphocytes Percent Auto 19.5 % (20-40); Mean Corpuscular Hemoglobin 28.7 pg (27.0-33.0); Mean Corpuscular Volume 84.5 fL (80.0-98.0); Mean Platelet Volume 13.2 fL (9.4-12.3); Monocytes Absolute Auto 0.8 X10*3/uL (0.1-1.2); Monocytes Percent Auto 7.4 % (2-11); Neutrophils Absolute Auto 7.5 x10*3/uL (2.0-8.3); Neutrophils Percent Auto 69.2 % (45-73); Platelet Count 138 X10*3/uL (160-400); Red Blood Count 4.39 X10*6/uL (4.20-5.50); Red Cell Distribution Width 13.2 % (11.0-16.0); White Blood Count 10.8 X10*3/uL (4.8-10.8)
[2022-08-16 21:45] LABS: PLT ABN DIST 1
[2022-08-16 22:03] LABS: Alanine Aminotransferase 39 U/L (0-31); Albumin Level 3.7 g/dL (3.5-5.0); Alkaline Phosphatase 112 U/L (39-117); Anion Gap 11 (12-20); Aspartate Amino Transferase 53 U/L (5-31); Bilirubin Direct 0.2 mg/dL (0.0-0.5); Bilirubin Total 0.3 mg/dL (0.0-1.0); Blood Urea Nitrogen 12 mg/dL (9-16); Calcium 9.1 mg/dL (8.4-10.2); Carbon Dioxide 23 mmol/L (22-29); Chloride 105 mmol/L (96-108); Creatinine Clr Calc Pharmacy 87.3; Estimated Glomerular Filt Rate 56; Glucose Random 460 mg/dL (60-115); Sodium 135 mmol/L (135-145); Total Protein 6.3 g/dL (6.5-8.0)
[2022-08-16 22:06] LABS: Troponin-I High Sensitivity < 3.5 ng/L (<3.5-17.0)
[2022-08-16 22:12] VITALS: BP 82/49; PULSE 90; RESP 16; TEMP 36.7; O2SAT 95
[2022-08-16 22:17] LABS: B Type Natriuretic Peptide < 10 pg/mL (<100)
[2022-08-16 22:19] LABS: TSH reflex Free T4 1.41 uIU/mL (0.32-4.0)
[2022-08-16] MEDS: 0.9 % Sodium Chloride 2,000 ML 999 ML IVCONT (22:27)
[2022-08-16] MEDS: Insulin Regular, Human 100 UNIT/ML 3 ML VIAL 10 UNIT IVPUSH (22:34)
[2022-08-16 23:40] VITALS: BP 100/50; PULSE 87; RESP 14; O2SAT 97
[2022-08-16 23:49] VITALS: BP 103/56; PULSE 87; RESP 14; O2SAT 97
[2022-08-17 00:06] LABS: COVID-19 Test Negative (Negative); IDNOW Serial# BCCEAD1C
[2022-08-17 00:37] VITALS: BP 111/70; PULSE 89; RESP 14; O2SAT 98
[2022-08-17 00:55] VITALS: BP 110/75; TEMP 36.8
[2022-08-17 01:11] LABS: Glucose, Whole Blood 231 mg/dL (60-115)
== END 2022-08-17 01:42 | disposition home or self-care (01) ==
PROVIDERS: Emergency Provider Emergency Medicine
DX: R00.2 Palpitations (principal); R00.0 Tachycardia, unspecified; E11.9 Type 2 diabetes mellitus without complications; I10 Essential (primary) hypertension; Z20.822 Contact with and (suspected) exposure to COVID-19; Z79.4 Long term (current) use of insulin; Z79.899 Other long term (current) drug therapy
CPT/HCPCS: 80048; 80076; 82947; 83880; 84443; 84484; 85025; 87635; 93005; 96361; 96374; 99284

== ENCOUNTER 2022-08-20 21:33 | Emergency (ER) | payer OTHER, SELFPAY ==
--- NOTE | 2022-08-20 21:37 | ECG_ITS ---
Test Reason : PALPATATIONS Blood Pressure : / mmHG Vent. Rate : 110 BPM Atrial Rate : 110 BPM P-R Int : 166 ms QRS Dur : 094 ms QT Int : 366 ms P-R-T Axes : 024 -01 016 degrees QTc Int : 495 ms Sinus tachycardia Minimal voltage criteria for LVH, may be normal variant ( R in aVL ) Borderline ECG When compared with ECG of 16-AUG-2022 21:33, No significant change was found Referred By: Generic ED Physician Electronically Signed By:CECILIO MUÑOZ
[2022-08-20 21:45] VITALS: BP 103/69; PULSE 111; PULSE 123; RESP 12; O2SAT 100; O2SAT 97; BMI 40.6
--- NOTE | 2022-08-20 21:50 | ED_ITS ---
HPI - Headache General Chief Complaint: Headache Stated Complaint: Headache/Heart Palpitations Time Seen by Provider: 08/20/22 21:50 Source: patient Mode of arrival: ambulatory Limitations: no limitations History of Present Illness HPI Narrative: . Patient with History of chronic migraine headaches heart palpitation been here several times last time patient was seen here on 08/16 lab workup normal supposed to see quality improvement manager planning to see next few days. No syncope no dizziness cardiac monitoring showed sinus tachycardia Heart rate fluctuating 88- 110 patient denies any chest pain no significant shortness of breath Related Data Home Medications Medication Instructions Recorded Confirmed insulin glargine 100 unit/mL 72 unit subcut DAILY@1300 07/22/20 03/29/22 subcutaneous solution (Lantus U-100 Insulin) clonidine HCl 0.3 mg tablet 1 tab PO BEDTIME 03/29/22 03/29/22 dulaglutide 1.5 mg/0.5 mL 1.5 mg subcut FR 03/29/22 03/29/22 subcutaneous pen injector (Trulicity) enalapril maleate 10 mg tablet 1 tab PO DAILY@1300 03/29/22 03/29/22 hydroxyzine pamoate 25 mg capsule 1 cap PO BEDTIME 03/29/22 03/29/22 insulin lispro 100 unit/mL 28 unit subcut BID 03/29/22 03/29/22 subcutaneous pen lorazepam 2 mg tablet 1 tab PO BID PRN Anxiety 03/29/22 03/29/22 metoprolol tartrate 25 mg tablet 1 tab PO BID 03/29/22 03/29/22 montelukast 10 mg tablet 1 tab PO DAILY 03/29/22 03/29/22 omeprazole 40 mg capsule,delayed 1 cap PO DAILY@0630 03/29/22 03/29/22 release paroxetine HCl 40 mg tablet 1 tab PO DAILY 03/29/22 03/29/22 prazosin 5 mg capsule 1 cap PO BEDTIME 03/29/22 03/29/22 rosuvastatin 5 mg tablet 1 tab PO BEDTIME 03/29/22 03/29/22 suvorexant 20 mg tablet (Belsomra) 1 tab PO BEDTIME PRN Sleep 03/29/22 03/29/22 topiramate 100 mg tablet 1.5 tab PO BID 03/29/22 03/29/22 trazodone 150 mg tablet 1 tab PO BEDTIME 03/29/22 03/29/22 ziprasidone HCl 40 mg capsule 1 cap PO BID 03/29/22 03/29/22 Previous Rx's Medication Instructions Recorded cefuroxime axetil 500 mg tablet 500 mg PO BID 7 days #14 tabs 03/30/22 cefuroxime axetil 250 mg tablet 250 mg PO BID 7 days #14 tabs 05/18/22 cyclobenzaprine 10 mg tablet 10 mg PO TID PRN muscle spasm #10 05/18/22 tabs lidocaine 5 % topical patch 1 patch topical DAILY #15 ea 05/18/22 tramadol 50 mg tablet 50 mg PO Q6H PRN pain #20 tabs 08/21/22 Allergies Allergy/AdvReac Type Severity Reaction Status Date / Time acetaminophen [Percocet] Allergy Unknown Unknown Verified 07/23/22 09:46 oxycodone [From PERCOCET] Allergy Unknown N/V Verified 07/23/22 09:46 tramadol Allergy Unknown Unknown Verified 07/23/22 09:46 Review of Systems Review of Systems: Yes all other systems are reviewed and are negative PMFSH Past Medical History Medical History Chronic asthma Diabetes Fibromyalgia Hypertension Migraines Surgical History History of carpal tunnel release Hx of breast reduction, elective Social History Social History Alcohol intake: never Patient Tobacco Use Status: Never used Tobacco Smoked in Last 30 Days: No Use of substances other than those prescribed or required for medical reasons: No Advance Directives: Yes Advance Directives on File: Yes Advance Directives Date on File: 03/29/22 Patient : No Current occupational status: unemployed Current occupation: right handed Physical Exam Vital Signs: Vital Signs: Last Vital Signs Temp 98.0 F 08/20/22 23:37 Pulse 88 08/20/22 23:37 Resp 14 08/20/22 23:37 BP 115/68 08/20/22 23:37 Pulse Ox 96 08/20/22 23:37 O2 Del Method 08/20/22 23:37 BMI result Body Mass Index 40.6 Appearance: Alert. Oriented X3. No acute distress. Eyes: PERRLA, No Nystagmus ENT: Pharynx normal. Oral Mucosa moist Neck: Normal inspection. Neck supple. CVS: Normal heart rate and rhythm. Pulses normal. Respiratory: No respiratory distress. Equal air entry bilateral, no wheezing/rales/rhonchi Abdomen: Soft and nontender. Bowel sounds are present, no mass palpable, no CVA tenderness Skin: Skin warm and dry. Normal skin color. Normal skin turgor. Extremities: No lower extremity edema. No calf tenderness Neuro: Oriented X 3. No motor deficit. No sensory deficit.No cerebellar signs , cranial nerves II-XII intact Medications Administered Discontinued Medications Generic Name Dose Route Start Last Admin Trade Name Freq PRN Reason Stop Dose Admin Insulin Human Lispro 10 unit 08/20/22 22:50 08/20/22 22:58 Insulin Lispro 100 Unit/Ml 3 Ml Vial SUBCUT 08/20/22 22:51 10 unit ONCE ONE Administration Ketorolac Tromethamine 60 mg 08/20/22 22:38 08/20/22 22:53 Ketorolac Tromethamine 60 Mg/2 Ml Vial IM 08/20/22 22:39 60 mg ONCE ONE Administration Ondansetron HCl 4 mg 08/20/22 22:38 08/20/22 22:53 Ondansetron Odt 4 Mg Tab.Rapdis TRANSLINGU 08/20/22 22:39 4 mg ONCE ONE Administration Medical Decision Making Medical Decision Making [facility] Narrative: Patient with migraine headache with chronic palpitations during stay in the ER/heart rate stayed stable with sinus tachycardia off and on. Patient advised to follow with quality improvement manager headache improved after tramadol patient already on metoprolol advised to continue same Lab Data [facility] Lab Attestation statement: I reviewed the patient's lab results. Labs: Lab Results 08/20/22 08/21/22 Range/Units 22:46 00:22 POC Glucose 389 H* 283 H (60-115) mg/dL Independent Interpretation I performed an independent interpretation of an: EKG Interpretation: Sinus tachycardia heart rate 110 beats per minute LVH no acute ST-T changes no acute ischemia no significant change from previous EKG Discharge Plan Discharge Clinical Impression: Migraine, Heart palpitations Patient Disposition: Home, Self-Care Instructions: Heart Palpitations (ED), Migraine Headache (ED) Additional Instructions: Follow up the quality improvement manager as scheduled Report to the ER if syncope/passing out episode Tramadol for pain Follow with PCP Prescriptions: New tramadol 50 mg tablet 50 mg PO Q6H PRN (Reason: pain) Qty: 20 0RF No Action cefuroxime axetil 250 mg tablet 250 mg PO BID 7 Days Qty: 14 0RF cyclobenzaprine 10 mg tablet 10 mg PO TID PRN (Reason: muscle spasm) Qty: 10 0RF lidocaine 5 % adhesive patch,medicated 1 patch topical DAILY Qty: 15 0RF Rx Instructions: leave on most painful area for up to 12 hrs enalapril maleate 10 mg tablet 1 tab PO DAILY@1300 clonidine HCl 0.3 mg tablet 1 tab PO BEDTIME omeprazole 40 mg capsule,delayed release(DR/EC) 1 cap PO DAILY@0630 prazosin 5 mg capsule 1 cap PO BEDTIME lorazepam 2 mg tablet 1 tab PO BID PRN (Reason: Anxiety) trazodone 150 mg tablet 1 tab PO BEDTIME montelukast 10 mg tablet 1 tab PO DAILY ziprasidone HCl 40 mg capsule 1 cap PO BID paroxetine HCl 40 mg tablet 1 tab PO DAILY topiramate 100 mg tablet 1.5 tab PO BID hydroxyzine pamoate 25 mg capsule 1 cap PO BEDTIME insulin lispro 100 unit/mL insulin pen 28 unit subcut BID rosuvastatin 5 mg tablet 1 tab PO BEDTIME metoprolol tartrate 25 mg tablet 1 tab PO BID Belsomra 20 mg tablet 1 tab PO BEDTIME PRN (Reason: Sleep) Trulicity 1.5 mg/0.5 mL pen injector 1.5 mg subcut FR cefuroxime axetil 500 mg tablet 500 mg PO BID 7 Days Qty: 14 0RF Lantus U-100 Insulin 100 unit/mL solution 72 unit subcut DAILY@1300 Interventions: ED Discharge Assessment Last Done: 08/21/22 01:04 Discharge Date/Time: 08/21/22 01:05
[2022-08-20 21:55] VITALS: BP 101/61; PULSE 100; RESP 12; O2SAT 98
[2022-08-20 22:50] VITALS: BP 90/54; PULSE 99; RESP 19; TEMP 36.8; O2SAT 95
[2022-08-20] MEDS: Ketorolac Tromethamine 60 MG/2 ML VIAL IM (22:53)
[2022-08-20] MEDS: Ondansetron ODT 4 MG TAB.RAPDIS TRANSLINGU (22:53)
[2022-08-20 22:54] LABS: Glucose, Whole Blood 389 mg/dL (60-115)
[2022-08-20] MEDS: Insulin Lispro 100 UNIT/ML 3 ML VIAL 10 UNIT SUBCUT (22:58)
[2022-08-20 23:37] VITALS: BP 115/68; PULSE 88; RESP 14; TEMP 36.7; O2SAT 96
[2022-08-21 00:27] LABS: Glucose, Whole Blood 283 mg/dL (60-115)
== END 2022-08-21 01:05 | disposition home or self-care (01) ==
PROVIDERS: Emergency Provider Internal Medicine
DX: G43.909 Migraine, unspecified, not intractable, without status migrainosus (principal); R00.2 Palpitations; N39.0 Urinary tract infection, site not specified; B96.20 Unspecified Escherichia coli [E. coli] as the cause of diseases classified elsewhere; R00.0 Tachycardia, unspecified; E11.9 Type 2 diabetes mellitus without complications; I10 Essential (primary) hypertension; Z79.4 Long term (current) use of insulin; Z79.899 Other long term (current) drug therapy; Z79.02 Long term (current) use of antithrombotics/antiplatelets
CPT/HCPCS: 82947; 93005; 96372; 99284; 99285; J1885

== ENCOUNTER 2022-08-23 12:18 | Emergency (ER) | payer OTHER, SELFPAY ==
[2022-08-23 12:31] VITALS: BP 124/70; PULSE 86; RESP 18; TEMP 36.1; O2SAT 100; BMI 52.4
--- NOTE | 2022-08-23 12:33 | ED_ITS ---
HPI - General Adult General Stated complaint: chest pain Related Data Home Medications Medication Instructions Recorded Confirmed insulin glargine 100 unit/mL 72 unit subcut DAILY@1300 07/22/20 03/29/22 subcutaneous solution (Lantus U-100 Insulin) clonidine HCl 0.3 mg tablet 1 tab PO BEDTIME 03/29/22 03/29/22 dulaglutide 1.5 mg/0.5 mL 1.5 mg subcut FR 03/29/22 03/29/22 subcutaneous pen [facility] enalapril maleate 10 mg tablet 1 tab PO DAILY@1300 03/29/22 03/29/22 hydroxyzine pamoate 25 mg capsule 1 cap PO BEDTIME 03/29/22 03/29/22 insulin lispro 100 unit/mL 28 unit subcut BID 03/29/22 03/29/22 subcutaneous pen lorazepam 2 mg tablet 1 tab PO BID PRN Anxiety 03/29/22 03/29/22 metoprolol tartrate 25 mg tablet 1 tab PO BID 03/29/22 03/29/22 montelukast 10 mg tablet 1 tab PO DAILY 03/29/22 03/29/22 omeprazole 40 mg capsule,delayed 1 cap PO DAILY@0630 03/29/22 03/29/22 release paroxetine HCl 40 mg tablet 1 tab PO DAILY 03/29/22 03/29/22 prazosin 5 mg capsule 1 cap PO BEDTIME 03/29/22 03/29/22 rosuvastatin 5 mg tablet 1 tab PO BEDTIME 03/29/22 03/29/22 suvorexant 20 mg tablet (Belsomra) 1 tab PO BEDTIME PRN Sleep 03/29/22 03/29/22 topiramate 100 mg tablet 1.5 tab PO BID 03/29/22 03/29/22 trazodone 150 mg tablet 1 tab PO BEDTIME 03/29/22 03/29/22 ziprasidone HCl 40 mg capsule 1 cap PO BID 03/29/22 03/29/22 Previous Rx's Medication Instructions Recorded cefuroxime axetil 500 mg tablet 500 mg PO BID 7 days #14 tabs 03/30/22 cefuroxime axetil 250 mg tablet 250 mg PO BID 7 days #14 tabs 05/18/22 cyclobenzaprine 10 mg tablet 10 mg PO TID PRN muscle spasm #10 05/18/22 tabs lidocaine 5 % topical patch 1 patch topical DAILY #15 ea 05/18/22 tramadol 50 mg tablet 50 mg PO Q6H PRN pain #20 tabs 08/21/22 Allergies Allergy/AdvReac Type Severity Reaction Status Date / Time acetaminophen [Percocet] Allergy Unknown Unknown Verified 08/23/22 12:47 oxycodone [From PERCOCET] Allergy Unknown N/V Verified 08/23/22 12:47 tramadol Allergy Unknown Unknown Verified 08/23/22 12:47 [facility] Past Medical History Medical History Chronic asthma Diabetes Fibromyalgia Hypertension Migraines Surgical History History of carpal tunnel release Hx of breast reduction, elective Social History Social History Alcohol intake: never Patient Tobacco Use Status: Never used Tobacco Advance Directives Date on File: 03/29/22 Current occupational status: unemployed Current occupation: right handed Course Course Course Narrative: RME: 08/23/2022 12:31 52-year-old female with past medical history of spondylosis, lumbosacral disc degeneration, fibromyalgia, bilateral kneel pain is here today for complaining of chest pain. Patient states that she has pressure-like chest pain that started 3 days ago. Patient reports that the chest pain is there all the time. Patient reports that the pain does not radiate and is in middle of the chest. Patient denies any nausea or vomiting. Denies presyncope, syncope. Reports f eeling fatigued. Patient was seen here on the 2nd of Discharge Plan Discharge Prescriptions: No Action cefuroxime axetil 250 mg tablet 250 mg PO BID 7 Days Qty: 14 0RF cyclobenzaprine 10 mg tablet 10 mg PO TID PRN (Reason: muscle spasm) Qty: 10 0RF lidocaine 5 % adhesive patch,medicated 1 patch topical DAILY Qty: 15 0RF Rx Instructions: leave on most painful area for up to 12 hrs enalapril maleate 10 mg tablet 1 tab PO DAILY@1300 clonidine HCl 0.3 mg tablet 1 tab PO BEDTIME omeprazole 40 mg capsule,delayed release(DR/EC) 1 cap PO DAILY@0630 prazosin 5 mg capsule 1 cap PO BEDTIME lorazepam 2 mg tablet 1 tab PO BID PRN (Reason: Anxiety) trazodone 150 mg tablet 1 tab PO BEDTIME montelukast 10 mg tablet 1 tab PO DAILY ziprasidone HCl 40 mg capsule 1 cap PO BID paroxetine HCl 40 mg tablet 1 tab PO DAILY topiramate 100 mg tablet 1.5 tab PO BID hydroxyzine pamoate 25 mg capsule 1 cap PO BEDTIME insulin lispro 100 unit/mL insulin pen 28 unit subcut BID rosuvastatin 5 mg tablet 1 tab PO BEDTIME metoprolol tartrate 25 mg tablet 1 tab PO BID Belsomra 20 mg tablet 1 tab PO BEDTIME PRN (Reason: Sleep) Trulicity 1.5 mg/0.5 mL pen injector 1.5 mg subcut FR cefuroxime axetil 500 mg tablet 500 mg PO BID 7 Days Qty: 14 0RF tramadol 50 mg tablet 50 mg PO Q6H PRN (Reason: pain) Qty: 20 0RF Lantus U-100 Insulin 100 unit/mL solution 72 unit subcut DAILY@1300
--- NOTE | 2022-08-23 12:43 | ECG_ITS ---
Test Reason : chest pain Blood Pressure : / mmHG Vent. Rate : 069 BPM Atrial Rate : 069 BPM P-R Int : 160 ms QRS Dur : 104 ms QT Int : 438 ms P-R-T Axes : 020 002 006 degrees QTc Int : 469 ms Normal sinus rhythm Normal ECG When compared with ECG of 20-AUG-2022 21:42, Vent. rate has decreased BY 41 BPM Referred By: Niru Dubon Electronically Signed By:CECILIO MUÑOZ
[2022-08-23 13:01] LABS: MANUAL DIFF FLAG NO
[2022-08-23 13:11] LABS: Basophils Percent Auto 0.5 % (0-2); Eosinophils Absolute Auto 0.3 X10*3/uL (0.0-0.4); Eosinophils Percent Auto 3.5 % (0-4); Hematocrit 42.3 % (37.0-47.0); Hemoglobin 13.8 g/dl (12.0-16.0); Imm Gran Abs Auto 0.03 X10*3/uL (0.00-0.03); Imm Gran Pct Auto 0.3 % (0.0-0.4); Lymphocytes Absolute Auto 1.8 X10*3/uL (1.2-4.9); Lymphocytes Percent Auto 20.9 % (20-40); Mean Corpuscular HGB Conc 32.6 g/dl (31.0-35.0); Mean Corpuscular Hemoglobin 28.4 pg (27.0-33.0); Mean Platelet Volume 13.6 fL (9.4-12.3); Monocytes Absolute Auto 0.7 X10*3/uL (0.1-1.2); Monocytes Percent Auto 7.5 % (2-11); Neutrophils Absolute Auto 5.8 x10*3/uL (2.0-8.3); Neutrophils Percent Auto 67.3 % (45-73); Platelet Count 130 X10*3/uL (160-400); Red Blood Count 4.86 X10*6/uL (4.20-5.50); Red Cell Distribution Width 13.4 % (11.0-16.0); White Blood Count 8.7 X10*3/uL (4.8-10.8)
[2022-08-23 13:24] LABS: Appearance Urine Turbid; Color Urine Yellow; Glucose Urine UA >=1000 mg/dL (Negative); Leukocyte Esterase Urine Large (3+) (Negative); Nitrite Urine Positive (Negative); UMIC TRIGGER UACC YES; Urine Blood Trace (Negative); Urine Ketones Trace mg/dL (Negative); Urine Protein 30 (1+) mg/dL (Neg-Trace)
[2022-08-23 13:36] LABS: Bacteria Urine 4+ (None Seen); RBC Urine 0-2 /HPF (0-2); UACC Culture Trigger YES; WBC Clumps Urine Present; WBC Urine >50 /HPF (0-5)
[2022-08-23 13:48] LABS: Alanine Aminotransferase 62 U/L (0-31); Albumin Level 3.8 g/dL (3.5-5.0); Alkaline Phosphatase 109 U/L (39-117); Anion Gap 15 (12-20); Aspartate Amino Transferase 98 U/L (5-31); Bilirubin Total 0.3 mg/dL (0.0-1.0); Blood Urea Nitrogen 13 mg/dL (9-16); Calcium 8.7 mg/dL (8.4-10.2); Carbon Dioxide 18 mmol/L (22-29); Chloride 109 mmol/L (96-108); Creatinine Clr Calc Pharmacy 103.1; Estimated Glomerular Filt Rate > 60; Sodium 138 mmol/L (135-145); Total Protein 6.6 g/dL (6.5-8.0)
[2022-08-23 13:57] LABS: Troponin-I High Sensitivity < 3.5 ng/L (<3.5-17.0)
[2022-08-23 14:02] LABS: Glucose Random 413 mg/dL (60-115)
== END 2022-08-23 17:11 | disposition left against medical advice (07) ==
PROVIDERS: Nurse Practitioner Family; Emergency Provider Emergency Medicine
DX: R07.89 Other chest pain (principal); Z79.899 Other long term (current) drug therapy
CPT/HCPCS: 36415; 80053; 81001; 84484; 85025; 87086; 87088; 87186; 93005; 99283

== ENCOUNTER 2022-09-04 10:00 | Emergency (ER) | payer OTHER, SELFPAY ==
--- NOTE | ~2022-09-04 | CT_ITS ---
EXAMINATION: CT HEAD WITHOUT CONTRAST CLINICAL INFORMATION: Dizziness. COMPARISON: 03/28/[address] scan. TECHNIQUE: Contiguous axial imaging was performed from the skull base to vertex without intravenous administration of contrast. Coronal and sagittal reformatted images were obtained. This CT examination was performed using dose optimization techniques as appropriate, variously including the following: *Automated exposure control *Adjustment of mA and/or kV according to patient size (this includes techniques or standardized protocols for targeted exams where dose is matched to indication/reason for exam; i.e. extremities or head) *Use of iterative reconstruction technique DLP: 832 mGy-cm FINDINGS: There is mild widening of the cortical sulci with frontal lobe predominance. The lateral ventricles are symmetrical. The third and fourth ventricles are in their normal midline position. The basilar and prepontine cisterns are unremarkable. There is no acute intra or extracerebral abnormality. There is no mass effect or midline shift. Sections through the bony calvarium are unremarkable. The orbits are intact. The paranasal sinuses show a large right maxillary retention cyst versus inflammatory polyp without significant change. Right posterior nasal polyp as well without significant change. The mastoid air cells are clear. CT/CT head/brain wo IV con IMPRESSION: No acute intracranial pathology.
--- NOTE | ~2022-09-04 | XR_ITS ---
EXAMINATION: XR CHEST CLINICAL INFORMATION: Dizziness. COMPARISON: Chest radiographs dated 05/18/2022. TECHNIQUE: 2 views of the chest were obtained. FINDINGS: No significant abnormality is noted involving the heart, lungs, mediastinum, bony thorax or soft tissues. XR/XR chest 2V IMPRESSION: No acute cardiopulmonary process.
[2022-09-04 10:12] VITALS: BP 77/28; BP 90/78; PULSE 60; PULSE 62; RESP 18; TEMP 36.4; O2SAT 97; BMI 39.8
--- NOTE | 2022-09-04 10:14 | ED_ITS ---
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 Patient states that a few days ago she was seen at [facility] for this issue and they gave her a medication that helped but she cannot remember the name of it. Patient states that she has an appointment at the headache clinic coming up. Patient denies any dizziness, lightheadedness, abdominal pain, nausea, vomiting, fever, chills, blurry vision, double vision, loss of vision, chest pain, difficulty breathing, shortness of breath, back pain, night sweats, pain with urination, increased urinary frequency, increased urinary urgency, blood in her urine or stool, syncope or a near syncopal episode, recent trauma or falls, bowel incontinence, bladder incontinence, bowel retention, bladder retention, or any other complaints at this time. Onset (ago): day(s) (5) Location: head Severity: mild Severity scale (1-10): 2 Quality: dull Pain Consistency: constant Relieving factors: none Exacerbating factors: none Associated symptoms: denies other symptoms Treatments prior to arrival: none Related Data Home Medications Medication Instructions Recorded Confirmed insulin glargine 100 unit/mL 72 unit subcut DAILY@1300 07/22/20 03/29/22 subcutaneous solution (Lantus U-100 Insulin) clonidine HCl 0.3 mg tablet 1 tab PO BEDTIME 03/29/22 03/29/22 dulaglutide 1.5 mg/0.5 mL 1.5 mg subcut FR 03/29/22 03/29/22 subcutaneous pen injector (Trulicity) enalapril maleate 10 mg tablet 1 tab PO DAILY@1300 03/29/22 03/29/22 hydroxyzine pamoate 25 mg capsule 1 cap PO BEDTIME 03/29/22 03/29/22 insulin lispro 100 unit/mL 28 unit subcut BID 03/29/22 03/29/22 subcutaneous pen lorazepam 2 mg tablet 1 tab PO BID PRN Anxiety 03/29/22 03/29/22 metoprolol tartrate 25 mg tablet 1 tab PO BID 03/29/22 03/29/22 montelukast 10 mg tablet 1 tab PO DAILY 03/29/22 03/29/22 omeprazole 40 mg capsule,delayed 1 cap PO DAILY@0630 03/29/22 03/29/22 release paroxetine HCl 40 mg tablet 1 tab PO DAILY 03/29/22 03/29/22 prazosin 5 mg capsule 1 cap PO BEDTIME 03/29/22 03/29/22 rosuvastatin 5 mg tablet 1 tab PO BEDTIME 03/29/22 03/29/22 suvorexant 20 mg tablet (Belsomra) 1 tab PO BEDTIME PRN Sleep 03/29/22 03/29/22 topiramate 100 mg tablet 1.5 tab PO BID 03/29/22 03/29/22 trazodone 150 mg tablet 1 tab PO BEDTIME 03/29/22 03/29/22 ziprasidone HCl 40 mg capsule 1 cap PO BID 03/29/22 03/29/22 Previous Rx's Medication Instructions Recorded cefuroxime axetil 500 mg tablet 500 mg PO BID 7 days #14 tabs 03/30/22 cefuroxime axetil 250 mg tablet 250 mg PO BID 7 days #14 tabs 05/18/22 cyclobenzaprine 10 mg tablet 10 mg PO TID PRN muscle spasm #10 05/18/22 tabs lidocaine 5 % topical patch 1 patch topical DAILY #15 ea 05/18/22 tramadol 50 mg tablet 50 mg PO Q6H PRN pain #20 tabs 08/21/22 nitrofurantoin 100 mg PO BID 7 days #14 caps 08/27/22 monohydrate/macrocrystals 100 mg capsule (Macrobid) nitrofurantoin 100 mg PO BID 7 days #14 caps 08/27/22 monohydrate/macrocrystals 100 mg capsule (Macrobid) Allergies Allergy/AdvReac Type Severity Reaction Status Date / Time acetaminophen [Percocet] Allergy Unknown Unknown Verified 08/23/22 12:47 oxycodone [From PERCOCET] Allergy Unknown N/V Verified 08/23/22 12:47 tramadol Allergy Unknown Unknown Verified 08/23/22 12:47 Review of Systems Constitutional: Constitutional: Reports no additional constitutional complaints, Denies chills, Denies fever(s), Reports headache(s) and Denies night sweats Eyes: Eyes: Reports no additional eye complaints, Denies blurry vision, Denies change in vision, Denies diplopia, Denies eye discharge, Denies loss of vision and Denies eye pain ENT: Denies dizziness and Reports headache(s) Cardiovascular: Cardiovascular: Reports no additional cardiovascular complaints, Denies chest pain, Denies lightheadedness, Denies Loss of Consciousness and Denies dyspnea Respiratory: Respiratory: Reports no additional respiratory complaints and Denies dyspnea Gastrointestinal: Gastrointestinal: Reports no additional gastrointestinal complaints, Denies abdominal pain, Denies melena, Denies hematochezia, Denies change in bowel habits and Denies change in stool character Genitourinary: Genitourinary: Denies hematuria, Denies urinary frequency, Denies dysuria, Denies urinary incontinence, Denies urinary hesitancy and Denies urinary urgency Musculoskeletal: Musculoskeletal: Reports no additional musculoskeletal complaints, Denies numbness and Denies tingling Neurologic: Denies dizziness, Reports headache(s), Denies loss of vision, Denies numbness and Denies tingling Psychiatric: Psychiatric: Reports no additional psychiatric complaints Endocrine: Endocrine: Reports no additional endocrine complaints Hematologic/Lymphatic: Hematologic/Lymphatic: Reports no additional hematologic/lymphatic complaints Allergic/Immunologic: Allergic/Immunologic: Reports no additional allergic/immunologic complaints FOR[facility]LY [facility] Past Medical History Attestation statement: The following information was validated with the patient. Source: old records reviewed and nursing notes reviewed Medical History Chronic asthma Diabetes Fibromyalgia Hypertension Migraines Surgical History History of carpal tunnel release Hx of breast reduction, elective Social History Social History Alcohol intake: never Patient Tobacco Use Status: Never used Tobacco Smoked in Last 30 Days: No Use of substances other than those prescribed or required for medical reasons: No Advance Directives: Yes Advance Directives on File: Yes Advance Directives Date on File: 03/29/22 Patient : No Current occupational status: unemployed Current occupation: right handed Physical Exam ED Vital Signs: Vital Signs - 24 hr 09/04/22 10:12 Temperature 97.5 F Pulse Rate 62 Respiratory Rate 18 Blood Pressure 77/28 L Pulse Oximetry 97 Oxygen Delivery Method Room Air BMI result Body Mass Index 39.8 Const General: cooperative, no acute distress, alert and awake Nutritional Appearance: well nourished Orientation/consciousness: patient oriented x3 Limitations: no limitations HENMT Head: Yes normal to inspection and Yes atraumatic Ears: hearing grossly normal bilaterally and external ears normal General nose exam: Normal external nose present, no nasal discharge noted and no epistaxis Face and sinus: Yes normal facial exam, No abrasion and No laceration Mouth: Normal oral and palatal mucosa present, no drooling and no muffled voice Eyes General: appearance normal, both eyes and all related structures Periorbital: periorbital findings normal Eyelids: Yes eyelids normal Conjunctivae: conjunctivae normal Pupils: Equal, round and reactive pupils present EOM: EOMs intact bilaterally Neck Neck: Yes normal visual inspection, Yes full ROM and Yes no lymphadenopathy Chest Chest palpation & inspection: normal inspection of the chest Resp Effort & Inspection: normal respiratory effort and able to speak in complete sentences Auscultation: clear to auscultation bilaterally Cardio Rate: regular rate Rhythm: regular rhythm GI Inspection: Yes normal to inspection Palpation (GI): Soft to palpation, not firm, nontender, no guarding and not rigid Neuro General: patient oriented x3 and moves all extremities Cranial nerves: Yes Equal, round and reactive pupils present Cognition (Neuro): normal cognition Motor exam (neuro): 5/5 motor strength present throughout Sensory Exam: Normal double simultaneous stimulation for sensation Coordination: [id number] test normal Extrem General: Yes normal to inspection, Yes full ROM and Yes capillary refill normal Psych Appearance: grossly normal Mental Status: mental status grossly normal Affect: normal affect Attitude: cooperative Thought process: Normal thought process present Thought content: Normal thought content present Insight: Good insight present (Psych) Medications Administered Discontinued Medications Generic Name Dose Route Start Last Admin Trade Name Freq PRN Reason Stop Dose Admin Sodium Chloride 1,000 mls @ 999 mls/hr 09/04/22 10:15 09/04/22 11:24 Ns IV 09/04/22 11:15 Infused .Q1H1M BRIANNA Infusion Medical Decision Making Medical Decision Making MDM Narrative: Patient is a 52 year old assigned female at with a history of headaches and DM presenting to the emergency department today with a headache. Patient's physical exam was unremarkable. Patient's blood work showed a slightly elevated WBC count of 12.0. Patient's glucose was elevated at 401 which is chronic for the patient. Patient's head CT showed no acute process. Patient's chest XR showed no acute process.I reviewed the ED records from [facility] from the patient's 08/31/2022 visit. She had a negative head CT and chest XR there as well as a negative lab work up. [facility] scheduled her an appointment with the headache clinic and was evaluated by a neurologist while in the department who recommended the patient follow up in the headache clinic. I explained my physical exam findings as well as all test results to the patient]. I answered all questions asked by the patient. I stressed the importance of the patient taking her medication as prescribed. I stressed the importance of the patient following up with her primary care provider and her neurologist. I stressed the importance of the patient returning to the emergency department immediately if her symptoms were to worsen or if she were to develop any dizziness, shortness of breath, difficulty breathing, chest pain, blurry vision, loss of vision, nausea, vomiting, abdominal pain, fever, chills, back pain, or any other complaints. Patient verbalized agreement and understanding with this treatment plan and discharge. Differential Diagnosis Differential Diagnoses: The differential diagnosis associated with the presentation includes headache, chronic pain Lab Data MDM Lab Attestation statement: I reviewed the patient's lab results. 09/04/22 10:21 09/04/22 11:01 Labs: Lab Results 09/04/22 09/04/22 09/04/22 Range/Units 10:14 10:21 10:21 WBC 12.0 H (4.8-10.8) X10*3/uL RBC 4.94 (4.20-5.50) X10*6/uL Hgb 13.8 (12.0-16.0) g/dl Hct 42.2 (37.0-47.0) % MCV 85.4 (80.0-98.0) fL MCH 27.9 (27.0-33.0) pg MCHC 32.7 (31.0-35.0) g/dl RDW 12.6 (11.0-16.0) % Plt Count 156 L (160-400) X10*3/uL MPV 12.7 H (9.4-12.3) fL Immature Gran % (Auto) Cancelled Neut % (Auto) Cancelled Lymph % (Auto) Cancelled [place] % (Auto) Cancelled Eos % (Auto) Cancelled Baso % (Auto) Cancelled Lymph # (Auto) Cancelled [place] # (Auto) Cancelled Eos # (Auto) Cancelled Baso # (Auto) Cancelled Abs Immat Gran (auto) Cancelled Absolute Neuts (auto) Cancelled Absolute Nucleated RBC 0.000 (0.0-0.012) X10*3/uL Nucleated RBC % (auto) 0.0 (0.0-0.2) /100WBC Neutrophils % (Manual) 65 (45-73) % Band Neutrophils % 1 L (3-5) % Lymphocytes % (Manual) 26 (20-40) % Monocytes % (Manual) 3 (2-11) % Eosinophils % (Manual) 5 H (0-4) % Abs Neuts (Manual) 7.9 (2.0-8.3) X10*3/uL Lymphocytes # (Manual) 3.1 (1.2-4.9) X10*3/uL Monocytes # (Manual) 0.4 (0.1-1.2) X10*3/uL Eosinophils # (Manual) 0.6 H (0.0-0.4) X10*3/uL Platelet Estimate NORMAL (NORMAL) Large Platelets PRESENT Plt Morphology Comment NOTED RBC Morphology NORMAL Sodium (135-145) mmol/L Potassium (3.3-5.1) mmol/L Chloride (96-108) mmol/L Carbon Dioxide (22-29) mmol/L Anion Gap (12-20) BUN (9-16) mg/dL Creatinine (0.5-1.4) mg/dL Estim Creat Clear Calc Estimated GFR POC Glucose 413 H* (60-115) mg/dL Random Glucose (60-115) mg/dL Calcium (8.4-10.2) mg/dL Magnesium (1.6-2.6) mg/dL Total Bilirubin (0.0-1.0) mg/dL AST (5-31) U/L ALT (0-31) U/L Alkaline Phosphatase (39-117) U/L Troponin I High Sens < 3.5 (<3.5-17.0) ng/L Total Protein (6.5-8.0) g/dL Albumin (3.5-5.0) g/dL Salicylates (15-30) mg/dL Acetaminophen (<30) mcg/mL Valproic Acid (50.0-100.0) mcg/mL Ethyl Alcohol mg/dL Influenza Type A (PCR) (Negative) Influenza Type B (PCR) (Negative) RSV RNA Qual (PCR) (Negative) SARS-CoV-2 RNA (RT-PCR) (Negative) 09/04/22 09/04/22 09/04/22 Range/Units 10:21 11:01 11:01 WBC (4.8-10.8) X10*3/uL RBC (4.20-5.50) X10*6/uL Hgb (12.0-16.0) g/dl Hct (37.0-47.0) % MCV (80.0-98.0) fL MCH (27.0-33.0) pg MCHC (31.0-35.0) g/dl RDW (11.0-16.0) % Plt Count (160-400) X10*3/uL MPV (9.4-12.3) fL Immature Gran % (Auto) Neut % (Auto) Lymph % (Auto) Livingston % (Auto) Eos % (Auto) Baso % (Auto) Lymph # (Auto) Living[place] # (Auto) Eos # (Auto) Baso # (Auto) Abs Immat Gran (auto) Absolute Neuts (auto) Absolute Nucleated RBC (0.0-0.012) X10*3/uL Nucleated RBC % (auto) (0.0-0.2) /100WBC Neutrophils % (Manual) (45-73) % Band Neutrophils % (3-5) % Lymphocytes % (Manual) (20-40) % Monocytes % (Manual) (2-11) % Eosinophils % (Manual) (0-4) % Abs Neuts (Manual) (2.0-8.3) X10*3/uL Lymphocytes # (Manual) (1.2-4.9) X10*3/uL Monocytes # (Manual) (0.1-1.2) X10*3/uL Eosinophils # (Manual) (0.0-0.4) X10*3/uL Platelet Estimate (NORMAL) Large Platelets Plt Morphology Comment RBC Morphology Sodium 136 (135-145) mmol/L Potassium 4.4 (3.3-5.1) mmol/L Chloride 106 (96-108) mmol/L Carbon Dioxide 24 (22-29) mmol/L Anion Gap 10 L (12-20) BUN 14 (9-16) mg/dL Creatinine 1.04 (0.5-1.4) mg/dL Estim Creat Clear Calc 71.3 Estimated GFR 55 POC Glucose (60-115) mg/dL Random Glucose 401 H* (60-115) mg/dL Calcium 9.1 (8.4-10.2) mg/dL Magnesium 1.8 (1.6-2.6) mg/dL Total Bilirubin 0.4 (0.0-1.0) mg/dL AST 59 H (5-31) U/L ALT 43 H (0-31) U/L Alkaline Phosphatase 125 H (39-117) U/L Troponin I High Sens (<3.5-17.0) ng/L Total Protein 6.5 (6.5-8.0) g/dL Albumin 3.6 (3.5-5.0) g/dL Salicylates < 5.0 L (15-30) mg/dL Acetaminophen < 17 (<30) mcg/mL Valproic Acid (50.0-100.0) mcg/mL Ethyl Alcohol < 10 mg/dL Influenza Type A (PCR) NEGATIVE (Negative) Influenza Type B (PCR) NEGATIVE (Negative) RSV RNA Qual (PCR) NEGATIVE (Negative) SARS-CoV-2 RNA (RT-PCR) NEGATIVE (Negative) 09/04/22 09/04/22 Range/Units 11:32 11:56 WBC (4.8-10.8) X10*3/uL RBC (4.20-5.50) X10*6/uL Hgb (12.0-16.0) g/dl Hct (37.0-47.0) % MCV (80.0-98.0) fL MCH (27.0-33.0) pg MCHC (31.0-35.0) g/dl RDW (11.0-16.0) % Plt Count (160-400) X10*3/uL MPV (9.4-12.3) fL Immature Gran % (Auto) Neut % (Auto) Lymph % (Auto) Living[place] % (Auto) Eos % (Auto) Baso % (Auto) Lymph # (Auto) [place] # (Auto) Eos # (Auto) Baso # (Auto) Abs Immat Gran (auto) Absolute Neuts (auto) Absolute Nucleated RBC (0.0-0.012) X10*3/uL Nucleated RBC % (auto) (0.0-0.2) /100WBC Neutrophils % (Manual) (45-73) % Band Neutrophils % (3-5) % Lymphocytes % (Manual) (20-40) % Monocytes % (Manual) (2-11) % Eosinophils % (Manual) (0-4) % Abs Neuts (Manual) (2.0-8.3) X10*3/uL Lymphocytes # (Manual) (1.2-4.9) X10*3/uL Monocytes # (Manual) (0.1-1.2) X10*3/uL Eosinophils # (Manual) (0.0-0.4) X10*3/uL Platelet Estimate (NORMAL) Large Platelets Plt Morphology Comment RBC Morphology Sodium (135-145) mmol/L Potassium (3.3-5.1) mmol/L Chloride (96-108) mmol/L Carbon Dioxide (22-29) mmol/L Anion Gap (12-20) BUN (9-16) mg/dL Creatinine (0.5-1.4) mg/dL Estim Creat Clear Calc Estimated GFR POC Glucose 341 H (60-115) mg/dL Random Glucose (60-115) mg/dL Calcium (8.4-10.2) mg/dL Magnesium (1.6-2.6) mg/dL Total Bilirubin (0.0-1.0) mg/dL AST (5-31) U/L ALT (0-31) U/L Alkaline Phosphatase (39-117) U/L Troponin I High Sens (<3.5-17.0) ng/L Total Protein (6.5-8.0) g/dL Albumin (3.5-5.0) g/dL Salicylates (15-30) mg/dL Acetaminophen (<30) mcg/mL Valproic Acid < 12.5 L (50.0-100.0) mcg/mL Ethyl Alcohol mg/dL Influenza Type A (PCR) (Negative) Influenza Type B (PCR) (Negative) RSV RNA Qual (PCR) (Negative) SARS-CoV-2 RNA (RT-PCR) (Negative) Radiology Impression Discussion of test interpretation with radiology: I have reviewed the radiologist's reading. Radiologist Impression: My interpretation is in agreement with the radiologist's impression of these imaging studies. EXAMINATION: CT HEAD WITHOUT CONTRAST CLINICAL INFORMATION: Dizziness.? COMPARISON: 03/28/[address] scan[address] TECHNIQUE: Contiguous axial imaging was performed from the skull base to vertex without intravenous administration of contrast. Coronal and sagittal reformatted images were obtained. This CT examination was performed using dose optimization techniques as appropriate, variously including the following: *Automated exposure control *Adjustment of mA and/or kV according to patient size (this includes techniques or standardized protocols for targeted exams where dose is matched to indication/reason for exam; i.e. extremities or head) *Use of iterative reconstruction technique DLP: 832 mGy-cm FINDINGS: There is mild widening of the cortical sulci with frontal lobe predominance. The lateral ventricles are symmetrical. The third and fourth ventricles are in their normal midline position. The basilar and prepontine cisterns are unremarkable. There is no acute intra or extracerebral abnormality. There is no mass effect or midline shift. Sections through the bony calvarium are unremarkable. The orbits are intact. The paranasal sinuses show a large right maxillary retention cyst versus inflammatory polyp without significant change. Right posterior nasal polyp as well without significant change. The mastoid air cells are clear. CT/CT head/brain wo IV con IMPRESSION: No acute intracranial pathology. Dictated By: Alex Spencer MD Signed By: Electronically signed by Alex Spencer MD 09/04/22 1302 EXAMINATION: XR CHEST CLINICAL INFORMATION: Dizziness. COMPARISON: Chest radiographs dated 05/18/2022. TECHNIQUE: 2 views of the chest were obtained. FINDINGS: No significant abnormality is noted involving the heart, lungs, mediastinum, bony thorax or soft tissues. XR/XR chest 2V IMPRESSION: No acute cardiopulmonary process. Dictated By: Alex Spencer MD Signed By: Electronically signed by Alex Spencer MD 09/04/22 1144 Independent Historian Clinical information obtained from an independent historian. History obtained fr om or confirmed by: EMS External Record Review External record reviewed: Outside ED record (reviewed [facility] ED records from 08/31/2022 as noted in the MDM of this chart.) Discharge Plan Discharge Clinical Impression: Headache Patient Disposition: Home, Self-Care Instructions: Acute Headache (ED) Additional Instructions: Follow up with your primary care provider and your neurologist as scheduled. Return to the emergency department immediately if your symptoms worsen or if you develop any dizziness, shortness of breath, difficulty breathing, chest pain, blurry vision, loss of vision, nausea, vomiting, abdominal pain, fever, chills, back pain, or any other complaints. Salvador un seguimiento con carpio proveedor de atenci?n primaria y carpio neur?logo seg?n lo programado. Regrese al departamento de emergencias de inmediato si neal s?ntomas empeoran o si presenta mareos, falta de aire, dificultad para respirar, dolor de pecho, visi?n borrosa, p?rdida de la visi?n, n?useas, v?mitos, dolor abdominal, fiebre, escalofr?os, dolor de espalda o cualquier otras quejas. Prescriptions: No Action cefuroxime axetil 250 mg tablet 250 mg PO BID 7 Days Qty: 14 0RF cyclobenzaprine 10 mg tablet 10 mg PO TID PRN (Reason: muscle spasm) Qty: 10 0RF lidocaine 5 % adhesive patch,medicated 1 patch topical DAILY Qty: 15 0RF Rx Instructions: leave on most painful area for up to 12 hrs enalapril maleate 10 mg tablet 1 tab PO DAILY@1300 clonidine HCl 0.3 mg tablet 1 tab PO BEDTIME omeprazole 40 mg capsule,delayed release(DR/EC) 1 cap PO DAILY@0630 prazosin 5 mg capsule 1 cap PO BEDTIME lorazepam 2 mg tablet 1 tab PO BID PRN (Reason: Anxiety) trazodone 150 mg tablet 1 tab PO BEDTIME montelukast 10 mg tablet 1 tab PO DAILY ziprasidone HCl 40 mg capsule 1 cap PO BID paroxetine HCl 40 mg tablet 1 tab PO DAILY topiramate 100 mg tablet 1.5 tab PO BID hydroxyzine pamoate 25 mg capsule 1 cap PO BEDTIME insulin lispro 100 unit/mL insulin pen 28 unit subcut BID rosuvastatin 5 mg tablet 1 tab PO BEDTIME metoprolol tartrate 25 mg tablet 1 tab PO BID Belsomra 20 mg tablet 1 tab PO BEDTIME PRN (Reason: Sleep) Trulicity 1.5 mg/0.5 mL pen injector 1.5 mg subcut FR cefuroxime axetil 500 mg tablet 500 mg PO BID 7 Days Qty: 14 0RF tramadol 50 mg tablet 50 mg PO Q6H PRN (Reason: pain) Qty: 20 0RF nitrofurantoin monohyd/m-cryst [Macrobid] 100 mg capsule 100 mg PO BID 7 Days Qty: 14 0RF Rx Instructions: must administer with a meal/food nitrofurantoin monohyd/m-cryst [Macrobid] 100 mg capsule 100 mg PO BID 7 Days Qty: 14 0RF Rx Instructions: must administer with a meal/food Lantus U-100 Insulin 100 unit/mL solution 72 unit subcut DAILY@1300 Referrals: [facility] Family Medicine [Provider Group] (Call to establish and follow up with a primary care provider. If you already have a primary care provider, please foll ow up with them. ) [facility] Primary Care, [place] [Provider Group] (Call to establish and follow up with a primary care provider. If you already have a primary care provider, please follow up with them. ) [facility] [Provider Group] (Call to establish and follow up with a primary care provider. If you already have a primary care provider, please follow up with them. ) Interventions: ED Discharge Assessment Last Done: 09/04/22 13:26 Discharge Date/Time: 09/04/22 13:27 Print Language: Syriac
--- NOTE | 2022-09-04 10:15 | ECG_ITS ---
Test Reason : DIZZINESS Blood Pressure : / mmHG Vent. Rate : 058 BPM Atrial Rate : 058 BPM P-R Int : 166 ms QRS Dur : 094 ms QT Int : 496 ms P-R-T Axes : 023 016 024 degrees QTc Int : 486 ms Sinus bradycardia Prolonged QT Abnormal ECG When compared with ECG of 23-AUG-2022 12:39, No significant change was found Referred By: Michelle Crawford Electronically Signed By:TONE CARLOS MD
[2022-09-04 10:19] LABS: Glucose, Whole Blood 413 mg/dL (60-115)
[2022-09-04] MEDS: 0.9 % Sodium Chloride 1,000 ML 999 ML IV (10:27)
[2022-09-04 10:28] LABS: Hematocrit 42.2 % (37.0-47.0); Hemoglobin 13.8 g/dl (12.0-16.0); Mean Corpuscular HGB Conc 32.7 g/dl (31.0-35.0); Mean Corpuscular Hemoglobin 27.9 pg (27.0-33.0); Mean Corpuscular Volume 85.4 fL (80.0-98.0); Mean Platelet Volume 12.7 fL (9.4-12.3); Platelet Count 156 X10*3/uL (160-400); Red Blood Count 4.94 X10*6/uL (4.20-5.50); Red Cell Distribution Width 12.6 % (11.0-16.0)
[2022-09-04 10:42] LABS: WBC ABN SCTR FOR CBC 1
[2022-09-04 11:04] LABS: Influenza A PCR NEGATIVE (Negative); Influenza B PCR NEGATIVE (Negative); Resp Syncy Virus RNA Qual PCR NEGATIVE (Negative); SARS COV2 PCR INHOUSE NEGATIVE (Negative)
[2022-09-04 11:05] LABS: Troponin-I High Sensitivity < 3.5 ng/L (<3.5-17.0)
[2022-09-04 11:32] LABS: Acetaminophen LAB < 17 mcg/mL (<30); Ethanol < 10 mg/dL; Salicylate < 5.0 mg/dL (15-30)
[2022-09-04 11:34] LABS: Alanine Aminotransferase 43 U/L (0-31); Albumin Level 3.6 g/dL (3.5-5.0); Alkaline Phosphatase 125 U/L (39-117); Anion Gap 10 (12-20); Aspartate Amino Transferase 59 U/L (5-31); Bilirubin Total 0.4 mg/dL (0.0-1.0); Blood Urea Nitrogen 14 mg/dL (9-16); Calcium 9.1 mg/dL (8.4-10.2); Carbon Dioxide 24 mmol/L (22-29); Chloride 106 mmol/L (96-108); Creatinine Clr Calc Pharmacy 71.3; Estimated Glomerular Filt Rate 55; Glucose Random 401 mg/dL (60-115); Magnesium 1.8 mg/dL (1.6-2.6); Potassium 4.4 mmol/L (3.3-5.1); Sodium 136 mmol/L (135-145); Total Protein 6.5 g/dL (6.5-8.0)
[2022-09-04 11:36] LABS: Band Neutrophils Percent 1 % (3-5); Eosinophils Percent Manual 5 % (0-4); Lymphocytes Percent Manual 26 % (20-40); Monocytes Percent Manual 3 % (2-11); Neutrophils Percent Manual 65 % (45-73)
[2022-09-04 11:37] LABS: RBC Morphology NORMAL
[2022-09-04 11:39] LABS: Large Platelet PRESENT; Platelet Estimate NORMAL (NORMAL); Platelet Morphology Comment NOTED
[2022-09-04 11:40] LABS: Eosinophils Absolute Manual 0.6 X10*3/uL (0.0-0.4); Lymphocytes Absolute Manual 3.1 X10*3/uL (1.2-4.9); Monocytes Absolute Manual 0.4 X10*3/uL (0.1-1.2); Neutrophils Absolute Manual 7.9 X10*3/uL (2.0-8.3)
[2022-09-04 11:59] LABS: Glucose, Whole Blood 341 mg/dL (60-115)
[2022-09-04 12:03] LABS: Valproate < 12.5 mcg/mL (50.0-100.0)
--- NOTE | 2022-09-04 12:56 | MHC.EDTECH ---
EKG completed and signed by
--- NOTE | 2022-09-04 13:14 | PC.NURSE ---
family at bedside at this time, iv fluids injused. pt sts feeling better at this time, asking to leave.
== END 2022-09-04 13:27 | disposition home or self-care (01) ==
PROVIDERS: Physician Assistant Medical; Emergency Provider Emergency Medicine
DX: R42 Dizziness and giddiness (principal); R51.9 Headache, unspecified; R07.89 Other chest pain; Z79.899 Other long term (current) drug therapy; Z20.822 Contact with and (suspected) exposure to COVID-19; Z20.828 Contact with and (suspected) exposure to other viral communicable diseases
CPT/HCPCS: 0241U; 36415; 70450; 71046; 80053; 80143; 80164; 80179; 82077; 82947; 83735; 84484; 85007; 85027; 93005; 96360; 99284; 99285

== ENCOUNTER 2023-04-06 11:04 | Emergency (ER) | payer OTHER, SELFPAY ==
--- NOTE | ~2023-04-06 | XR_ITS ---
EXAMINATION: XR HIP, LEFT CLINICAL INFORMATION: Left hip pain. COMPARISON: 05/31/2021 left hip radiographs. TECHNIQUE: Two views of the left hip. FINDINGS: There is no acute fracture or dislocation. The left hip joint space is unremarkable. Mild degenerative spurring is again seen off of the greater trochanter without interval change. The soft tissues are unremarkable. XR/XR hip LT min 2V IMPRESSION: Unremarkable left hip.
[2023-04-06 11:18] VITALS: BP 102/67; PULSE 86; RESP 16; TEMP 36.3; O2SAT 95; BMI 40.3
--- NOTE | 2023-04-06 11:30 | ED.GENADULT ---
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 She denies recent fall or other trauma. She describes her symptoms as a gradual worsening of her chronic conditions. She denies any saddle anesthesia or bowel or bladder incontinence. Denies fevers. Not used any [id number] medications for her symptoms. She saw a neurosurgeon in August of this year who referred her to Dr. Duran for injections. MD complaint: back pain Onset (ago): month(s) Location: back Radiation: extremity and distal Severity: severe Quality: aching Pain Consistency: constant Relieving factors: rest Exacerbating factors: movement Associated symptoms: denies other symptoms Treatments prior to arrival: none Related Data Home Medications Medication Instructions Recorded Confirmed insulin glargine 100 unit/mL 72 unit subcut DAILY@1300 07/22/20 03/29/22 subcutaneous solution (Lantus U-100 Insulin) clonidine HCl 0.3 mg tablet 1 tab PO BEDTIME 03/29/22 03/29/22 dulaglutide 1.5 mg/0.5 mL 1.5 mg subcut FR 03/29/22 03/29/22 subcutaneous pen injector (Trulicity) enalapril maleate 10 mg tablet 1 tab PO DAILY@1300 03/29/22 03/29/22 hydroxyzine pamoate 25 mg capsule 1 cap PO BEDTIME 03/29/22 03/29/22 insulin lispro 100 unit/mL 28 unit subcut BID 03/29/22 03/29/22 subcutaneous pen lorazepam 2 mg tablet 1 tab PO BID PRN Anxiety 03/29/22 03/29/22 metoprolol tartrate 25 mg tablet 1 tab PO BID 03/29/22 03/29/22 montelukast 10 mg tablet 1 tab PO DAILY 03/29/22 03/29/22 omeprazole 40 mg capsule,delayed 1 cap PO DAILY@0630 03/29/22 03/29/22 release paroxetine HCl 40 mg tablet 1 tab PO DAILY 03/29/22 03/29/22 prazosin 5 mg capsule 1 cap PO BEDTIME 03/29/22 03/29/22 rosuvastatin 5 mg tablet 1 tab PO BEDTIME 03/29/22 03/29/22 suvorexant 20 mg tablet (Belsomra) 1 tab PO BEDTIME PRN Sleep 03/29/22 03/29/22 topiramate 100 mg tablet 1.5 tab PO BID 03/29/22 03/29/22 trazodone 150 mg tablet 1 tab PO BEDTIME 03/29/22 03/29/22 ziprasidone HCl 40 mg capsule 1 cap PO BID 03/29/22 03/29/22 Previous Rx's Medication Instructions Recorded cefuroxime axetil 500 mg tablet 500 mg PO BID 7 days #14 tabs 03/30/22 cefuroxime axetil 250 mg tablet 250 mg PO BID 7 days #14 tabs 05/18/22 cyclobenzaprine 10 mg tablet 10 mg PO TID PRN muscle spasm #10 05/18/22 tabs lidocaine 5 % topical patch 1 patch topical DAILY #15 ea 05/18/22 tramadol 50 mg tablet 50 mg PO Q6H PRN pain #20 tabs 08/21/22 nitrofurantoin 100 mg PO BID 7 days #14 caps 08/27/22 monohydrate/macrocrystals 100 mg capsule (Macrobid) nitrofurantoin 100 mg PO BID 7 days #14 caps 08/27/22 monohydrate/macrocrystals 100 mg capsule (Macrobid) Allergies Allergy/AdvReac Type Severity Reaction Status Date / Time acetaminophen [Percocet] Allergy Unknown Unknown Verified 04/06/23 11:18 oxycodone [From PERCOCET] Allergy Unknown N/V Verified 04/06/23 11:18 tramadol Allergy Unknown Unknown Verified 04/06/23 11:18 Review of Systems Review of Systems: As per HPI. Yes all other systems are reviewed and are negative Constitutional: Constitutional: Reports as per HPI [facility] Past Medical History Medical History Chronic asthma Diabetes Fibromyalgia Hypertension Migraines Surgical History History of carpal tunnel release Hx of breast reduction, elective Social History Social History Alcohol intake: never Patient Tobacco Use Status: Never used Tobacco Use of substances other than those prescribed or required for medical reasons: No Advance Directives: Yes Advance Directives on File: Yes Advance Directives Date on File: 03/29/22 Current occupational status: unemployed Current occupation: right handed Physical Exam ED Vital Signs: Vital Signs - 24 hr 04/06/23 11:18 Temperature 97.3 F Pulse Rate 86 Respiratory Rate 16 Blood Pressure 102/67 Pulse Oximetry 95 Oxygen Delivery Method Room Air BMI result Body Mass Index 40.3 Vital signs have been reviewed and appear to be correct. Blood pressure normal. Heart rate normal. Respiratory rate normal. Temperature normal. Oxygen saturation normal. Const General: cooperative, healthy appearing and no acute distress Orientation/consciousness: oriented to person, oriented to place, oriented to time and patient oriented x3 Limitations: no limitations HENMT Head: Yes normocephalic and Yes atraumatic Ears: external ears normal General nose exam: Normal external nose present Face and sinus: Yes face symmetric Mouth: oropharynx normal and moist mucous membranes Throat: Yes uvula midline Eyes Pupils: Equal, round and reactive pupils present Neck Neck: Yes normal visual inspection and Yes supple Resp Effort & Inspection: normal respiratory effort and able to speak in complete sentences Auscultation: clear to auscultation bilaterally Cardio Rate: regular rate Rhythm: regular rhythm Heart sounds: S1 normal heart sound present and S2 normal heart sound present GI Palpation (GI): Soft to palpation and nontender Auscultation: normoactive bowel sounds General: Yes no CVA tenderness Back/Spine/Pelvis Back: no CVA tenderness Thoracic/Lumbar Spine: thoracic and lumbar spine normal to inspection, thoraco-lumbar ROM normal, straight leg raise negative bilaterally, No thoracic spinal tenderness and No lumbar spinal tenderness Pelvis: no pain with anterior-posterior compression and no pain with lateral compression Skin General skin exam: elasticity normal and turgor normal Neuro General: oriented to person, oriented to place, oriented to time, patient oriented x3, gait normal, tone normal, moves all extremities, Normal light touch and pain sensation, no focal motor deficits, CN's II-XI intact bilaterally and deep tendon reflexes 2+ bilaterally Cranial nerves: Yes Equal, round and reactive pupils present Cognition (Neuro): normal cognition Motor exam (neuro): 5/5 motor strength present throughout, Normal motor muscle tone present throughout and Motor abnormalities not present Sensory Exam: Normal double simultaneous stimulation for sensation Extrem General: Yes full ROM, Yes no pedal edema and Yes no calf tenderness Psych Mental Status: mental status grossly normal Affect: normal affect Thought process: Normal thought process present Medical Decision Making Medical Decision Making MDM Narrative: Patient is a 53-year-old Chadian-speaking female with history of DM, HTN, asthma, lumbosacral disc degeneration, lumbar and sacral spondyloarthritis, and fibromyalgia presenting to the emergency department with complaint of left lumbar and lateral hip pain as well as decreased sensation to her left leg worsening over the past 2 months. On exam patient is awake, A+Ox3, VS WNL, afebrile, normal neurological exam without focal deficits, no midline spinal tenderness, full ROM and 5/5 strength bilateral lower extremities, DTRs 2+ throughout. Given reported symptoms and physical exam findings, initial differential includes exacerbation of chronic spondylarthritis, lumbar strain, lumbar radiculopathy. X-ray notable for unremarkable left hip, but degenerative spurring seen to greater trochanter. My interpretation is in agreement with the radiologist's interpretation. Low suspicion for/unlikely herniated disc, malignancy/mass, cauda equina, spinal epidural abscess. Feel patient's symptoms are likely a an exacerbation of her chronic arthritis. Advised patient to begin using 650 mg Tylenol every 6 hours as she has not been taking anything for her pain. Instructed patient to follow-up with PCP as review of EMR reveals patient was supposed to follow-up with for possible injections. Return precautions discussed at bedside. Patient verbalized understanding of and agreement with plan. Differential Diagnosis Differential Diagnoses: The differential diagnosis associated with the presentation includes As per MDM. Independent Interpretation I performed an independent interpretation of an: Plain X-Ray Interpretation: No acute fracture or dislocation, degenerative changes to greater trochanter noted Radiology Impression Discussion of test interpretation with radiology: I have reviewed the radiologist's reading. Radiologist Impression: FINDINGS: There is no acute fracture or dislocation. The left hip joint space is unremarkable. Mild degenerative spurring is again seen off of the greater trochanter without interval change. The soft tissues are unremarkable. XR/XR hip LT min 2V IMPRESSION: Unremarkable left hip. ? External Record Review External record reviewed: Inpatient record, Office record and Outpatient record Chronic Conditions Patient?s care impacted by: Diabetes, Hypertension and Other Discharge Plan Discharge Clinical Impression: Arthritis of left hip Patient Disposition: Home, Self-Care Instructions: Osteoarthritis (DC) Additional Instructions: Sweeney sido evaluado en el departamento de emergencias hoy por dolor en la cadera izquierda. Hester evaluaci?n no encontr? evidencia de condiciones m?dicas que requieran carroll intervenci?n de emergencia en harvey momento. Le recomendamos que tome 650 mg de Tylenol cada 6 horas seg?n sea necesario para el dolor. Programe carroll wolfgang de seguimiento con hester proveedor de atenci?n primaria esta semana. Regrese al departamento de emergencias si experimenta un empeoramiento del dolor, entumecimiento, hormigueo, cambio de color en la pierna o cualquier otro s?ntoma preocupante. Prescriptions: No Action cefuroxime axetil 250 mg tablet 250 mg PO BID 7 Days Qty: 14 0RF cyclobenzaprine 10 mg tablet 10 mg PO TID PRN (Reason: muscle spasm) Qty: 10 0RF lidocaine 5 % adhesive patch,medicated 1 patch topical DAILY Qty: 15 0RF Rx Instructions: leave on most painful area for up to 12 hrs enalapril maleate 10 mg tablet 1 tab PO DAILY@1300 clonidine HCl 0.3 mg tablet 1 tab PO BEDTIME omeprazole 40 mg capsule,delayed release(DR/EC) 1 cap PO DAILY@0630 prazosin 5 mg capsule 1 cap PO BEDTIME lorazepam 2 mg tablet 1 tab PO BID PRN (Reason: Anxiety) trazodone 150 mg tablet 1 tab PO BEDTIME montelukast 10 mg tablet 1 tab PO DAILY ziprasidone HCl 40 mg capsule 1 cap PO BID paroxetine HCl 40 mg tablet 1 tab PO DAILY topiramate 100 mg tablet 1.5 tab PO BID hydroxyzine pamoate 25 mg capsule 1 cap PO BEDTIME insulin lispro 100 unit/mL insulin pen 28 unit subcut BID rosuvastatin 5 mg tablet 1 tab PO BEDTIME metoprolol tartrate 25 mg tablet 1 tab PO BID Belsomra 20 mg tablet 1 tab PO BEDTIME PRN (Reason: Sleep) Trulicity 1.5 mg/0.5 mL pen injector 1.5 mg subcut FR cefuroxime axetil 500 mg tablet 500 mg PO BID 7 Days Qty: 14 0RF tramadol 50 mg tablet 50 mg PO Q6H PRN (Reason: pain) Qty: 20 0RF nitrofurantoin monohyd/m-cryst [Macrobid] 100 mg capsule 100 mg PO BID 7 Days Qty: 14 0RF Rx Instructions: must administer with a meal/food nitrofurantoin monohyd/m-cryst [Macrobid] 100 mg capsule 100 mg PO BID 7 Days Qty: 14 0RF Rx Instructions: must administer with a meal/food Lantus U-100 Insulin 100 unit/mL solution 72 unit subcut DAILY@1300 Print Language: Chadian
== END 2023-04-06 14:38 | disposition home or self-care (01) ==
PROVIDERS: Emergency Provider Emergency Medicine
DX: M16.12 Unilateral primary osteoarthritis, left hip (principal); E11.9 Type 2 diabetes mellitus without complications; I10 Essential (primary) hypertension; Z79.4 Long term (current) use of insulin; Z79.899 Other long term (current) drug therapy
CPT/HCPCS: 73502; 99283; 99284

== ENCOUNTER 2023-10-23 16:38 | Outpatient (REF) | payer MEDICAID, SELFPAY ==
[2023-10-23 17:53] LABS: MANUAL DIFF FLAG NO
[2023-10-23 18:19] LABS: Basophils Absolute Auto 0.1 X10*3/uL (0.0-0.2); Basophils Percent Auto 0.6 % (0-2); Eosinophils Absolute Auto 0.3 X10*3/uL (0.0-0.4); Eosinophils Percent Auto 2.9 % (0-4); Hematocrit 42.4 % (37.0-47.0); Hemoglobin 14.3 g/dl (12.0-16.0); Imm Gran Abs Auto 0.02 X10*3/uL (0.00-0.03); Imm Gran Pct Auto 0.2 % (0.0-0.4); Lymphocytes Absolute Auto 2.8 X10*3/uL (1.2-4.9); Lymphocytes Percent Auto 29.8 % (20-40); Mean Corpuscular HGB Conc 33.7 g/dl (31.0-35.0); Mean Corpuscular Hemoglobin 27.4 pg (27.0-33.0); Mean Corpuscular Volume 81.2 fL (80.0-98.0); Mean Platelet Volume 13.9 fL (9.4-12.3); Monocytes Absolute Auto 0.8 X10*3/uL (0.1-1.2); Monocytes Percent Auto 8.7 % (2-11); Neutrophils Absolute Auto 5.4 x10*3/uL (2.0-8.3); Neutrophils Percent Auto 57.8 % (45-73); Platelet Count 166 X10*3/uL (160-400); Red Blood Count 5.22 X10*6/uL (4.20-5.50); Red Cell Distribution Width 13.8 % (11.0-16.0); White Blood Count 9.4 X10*3/uL (4.8-10.8)
[2023-10-23 18:25] LABS: Alanine Aminotransferase 34 U/L (0-31); Albumin Level 3.9 g/dL (3.5-5.0); Alkaline Phosphatase 118 U/L (39-117); Anion Gap 15 (12-20); Aspartate Amino Transferase 41 U/L (5-31); Bilirubin Total 0.5 mg/dL (0.0-1.0); Blood Urea Nitrogen 6 mg/dL (9-16); Calcium 9.2 mg/dL (8.4-10.2); Carbon Dioxide 22 mmol/L (22-29); Chloride 104 mmol/L (96-108); Cholesterol 151 mg/dL (<200); Estimated Glomerular Filt Rate > 60; Glucose Random 316 mg/dL (60-115); HDL Cholesterol 35 mg/dL (>40); LDL Cholesterol Calculated 85 mg/dL (<100); Potassium 3.5 mmol/L (3.3-5.1); Sodium 137 mmol/L (135-145); Total Protein 6.8 g/dL (6.5-8.0); Triglycerides 158 mg/dL (<150)
== END 2023-10-23 16:39 | disposition home or self-care (01) ==
LOC: HO.HHCL 16:38
PROVIDERS: Visit Provider Registered Nurse
DX: E11.65 Type 2 diabetes mellitus with hyperglycemia (principal)
CPT/HCPCS: 36415; 80053; 80061; 85025

== ENCOUNTER 2023-10-25 08:38 | Outpatient (REF) | payer MEDICAID, SELFPAY ==
[2023-10-25 12:03] LABS: Creatinine Urine 97.83 mg/dL; Microalbum/Creatinine Ratio Ur 24.5 ug/mg cr (<30)
== END 2023-10-25 08:39 | disposition home or self-care (01) ==
LOC: HO.HHCL 08:38
PROVIDERS: Visit Provider Registered Nurse
DX: Z13.89 Encounter for screening for other disorder (principal)
CPT/HCPCS: 82043; 82570

== ENCOUNTER 2023-12-04 10:04 | Emergency (ER) | payer MEDICAID, SELFPAY ==
[2023-12-04 10:13] VITALS: BP 105/73; BP 130/76; PULSE 95; PULSE 97; RESP 16; TEMP 36.2; O2SAT 98; BMI 36.4
[2023-12-04 11:02] LABS: MANUAL DIFF FLAG NO
[2023-12-04 11:06] LABS: Basophils Absolute Auto 0.1 X10*3/uL (0.0-0.2); Basophils Percent Auto 0.5 % (0-2); Eosinophils Absolute Auto 0.3 X10*3/uL (0.0-0.4); Eosinophils Percent Auto 2.2 % (0-4); Hematocrit 45.8 % (37.0-47.0); Hemoglobin 14.7 g/dl (12.0-16.0); Imm Gran Abs Auto 0.08 X10*3/uL (0.00-0.03); Imm Gran Pct Auto 0.7 % (0.0-0.4); Lymphocytes Absolute Auto 2.3 X10*3/uL (1.2-4.9); Lymphocytes Percent Auto 20.4 % (20-40); Mean Corpuscular HGB Conc 32.1 g/dl (31.0-35.0); Mean Corpuscular Hemoglobin 27.1 pg (27.0-33.0); Mean Corpuscular Volume 84.3 fL (80.0-98.0); Mean Platelet Volume 12.2 fL (9.4-12.3); Monocytes Absolute Auto 0.7 X10*3/uL (0.1-1.2); Monocytes Percent Auto 6.5 % (2-11); Neutrophils Absolute Auto 7.9 x10*3/uL (2.0-8.3); Neutrophils Percent Auto 69.7 % (45-73); Platelet Count 165 X10*3/uL (160-400); Red Blood Count 5.43 X10*6/uL (4.20-5.50); White Blood Count 11.3 X10*3/uL (4.8-10.8)
[2023-12-04 11:29] LABS: Alanine Aminotransferase 34 U/L (0-31); Alkaline Phosphatase 162 U/L (39-117); Anion Gap 12 (12-20); Aspartate Amino Transferase 29 U/L (5-31); Bilirubin Total 0.3 mg/dL (0.0-1.0); Blood Urea Nitrogen 15 mg/dL (9-16); Calcium 9.4 mg/dL (8.4-10.2); Carbon Dioxide 21 mmol/L (22-29); Chloride 103 mmol/L (96-108); Creatinine Clr Calc Pharmacy 80.4; Estimated Glomerular Filt Rate > 60; Potassium 4.7 mmol/L (3.3-5.1); Sodium 131 mmol/L (135-145); Total Protein 7.4 g/dL (6.5-8.0)
[2023-12-04 11:31] LABS: Glucose Random 375 mg/dL (60-115)
== END 2023-12-04 15:57 | disposition left against medical advice (07) ==
PROVIDERS: Physician Assistant Medical; Emergency Provider Emergency Medicine
DX: K59.00 Constipation, unspecified (principal); Z79.899 Other long term (current) drug therapy
CPT/HCPCS: 36415; 80053; 82010; 85025; 99281; 99283

== ENCOUNTER 2023-12-16 15:43 | Emergency (ER) | payer MEDICAID, SELFPAY ==
[2023-12-16 16:02] VITALS: BP 100/72; PULSE 100; RESP 18; TEMP 36.1; O2SAT 97; BMI 37.4
--- NOTE | 2023-12-16 16:03 | ED.GENADULT ---
HPI - General Adult General Chief complaint: General Medical Stated complaint: blood pressure high and sugar high (pt states) Time Seen by Provider: 12/16/23 20:42 Related Data Home Medications ?Medication ?Instructions ?Recorded ?Confirmed insulin glargine 100 unit/mL 72 unit subcut DAILY@1300 07/22/20 03/29/22 subcutaneous solution (Lantus U-100 Insulin) clonidine HCl 0.3 mg tablet 1 tab PO BEDTIME 03/29/22 03/29/22 dulaglutide 1.5 mg/0.5 mL 1.5 mg subcut FR 03/29/22 03/29/22 subcutaneous pen injector (Trulicity) enalapril maleate 10 mg tablet 1 tab PO DAILY@1300 03/29/22 03/29/22 hydroxyzine pamoate 25 mg capsule 1 cap PO BEDTIME 03/29/22 03/29/22 insulin lispro 100 unit/mL 28 unit subcut BID 03/29/22 03/29/22 subcutaneous pen lorazepam 2 mg tablet 1 tab PO BID PRN Anxiety 03/29/22 03/29/22 metoprolol tartrate 25 mg tablet 1 tab PO BID 03/29/22 03/29/22 montelukast 10 mg tablet 1 tab PO DAILY 03/29/22 03/29/22 omeprazole 40 mg capsule,delayed 1 cap PO DAILY@0630 03/29/22 03/29/22 release paroxetine HCl 40 mg tablet 1 tab PO DAILY 03/29/22 03/29/22 prazosin 5 mg capsule 1 cap PO BEDTIME 03/29/22 03/29/22 rosuvastatin 5 mg tablet 1 tab PO BEDTIME 03/29/22 03/29/22 suvorexant 20 mg tablet (Belsomra) 1 tab PO BEDTIME PRN Sleep 03/29/22 03/29/22 topiramate 100 mg tablet 1.5 tab PO BID 03/29/22 03/29/22 trazodone 150 mg tablet 1 tab PO BEDTIME 03/29/22 03/29/22 ziprasidone HCl 40 mg capsule 1 cap PO BID 03/29/22 03/29/22 Previous Rx's ?Medication ?Instructions ?Recorded cefuroxime axetil 500 mg tablet 500 mg PO BID 7 days #14 tabs 03/30/22 cefuroxime axetil 250 mg tablet 250 mg PO BID 7 days #14 tabs 05/18/22 cyclobenzaprine 10 mg tablet 10 mg PO TID PRN muscle spasm #10 05/18/22 tabs lidocaine 5 % topical patch 1 patch topical DAILY #15 ea 05/18/22 tramadol 50 mg tablet 50 mg PO Q6H PRN pain #20 tabs 08/21/22 nitrofurantoin 100 mg PO BID 7 days #14 caps 08/27/22 monohydrate/macrocrystals 100 mg capsule (Macrobid) nitrofurantoin 100 mg PO BID 7 days #14 caps 08/27/22 monohydrate/macrocrystals 100 mg capsule (Macrobid) glucagon 1 mg solution for 1 mg subcut Q20M PRN hypoglycemia 12/16/23 injection (GlucaGen HypoKit) #1 ea Allergies Allergy/AdvReac Type Severity Reaction Status Date / Time oxycodone [From PERCOCET] Allergy Unknown N/V Verified 12/16/23 16:06 tramadol Allergy Unknown Unknown Verified 12/16/23 16:06 [facility] [place] Past Medical History Medical History Chronic asthma Diabetes Fibromyalgia Hypertension Migraines Surgical History History of carpal tunnel release Hx of breast reduction, elective Social History Social History Alcohol intake: never Patient Tobacco Use Status: Never used Tobacco Smoked in Last 30 Days: No Use of substances other than those prescribed or required for medical reasons: No Advance Directives: Yes Advance Directives on File: Yes Advance Directives Date on File: 03/29/22 Do you have a plan to hurt others: No Plan Patient : No Current occupational status: unemployed Current occupation: right handed Physical Exam ED Vital Signs: Vital Signs - 24 hr 12/16/23 16:02 Temperature 97 F Pulse Rate 100 Respiratory Rate 18 Blood Pressure 100/72 Pulse Oximetry 97 Oxygen Delivery Method Room Air BMI result Body Mass Index 37.4 Course Course Course Narrative: This is an RME: Additional HPI, ROS, PE not included below will be deferred to primary provider. 53 yo f hx of DM, obesity, htn , migrane, palpitaitons, fibromyalgia presents w/ high sugar and high blood pressures x few weeks. Feels like she has a dry mouth and tired. Reports she uses her insulin as rx. She just got 15 units of humalog at her PCPs prior to arival and per provider still reading high Medications Administered Generic Name Dose Route Start Last Admin Trade Name Freq PRN Reason Stop Dose Admin Sodium Chloride 1,000 mls @ 999 mls/hr 12/16/23 22:33 12/16/23 22:43 Ns IVCONT 12/16/23 23:33 999 mls/hr .Q1H1M ONE Administration Discontinued Medications Generic Name Dose Route Start Last Admin Trade Name Freq PRN Reason Stop Dose Admin Sodium Chloride 1,000 mls @ 999 mls/hr 12/16/23 16:15 12/16/23 22:14 Ns IV 12/16/23 17:15 Not Given .Q1H1M BRIANNA Sodium Chloride 1,000 mls @ 999 mls/hr 12/16/23 20:50 12/16/23 22:15 Ns IVCONT 12/16/23 21:50 999 mls/hr .Q1H1M ONE Administration Insulin Human Regular 10 unit 12/16/23 20:50 12/16/23 22:37 Insulin Regular, Human 100 Unit/Ml 3 Ml Vial IVPUSH 12/16/23 20:51 Not Given ONCE ONE Insulin Human Regular 5 unit 12/16/23 22:33 12/16/23 22:42 Insulin Regular, Human 100 Unit/Ml 3 Ml Vial IVPUSH 12/16/23 22:34 5 unit ONCE ONE Administration Medical Decision Making Medical Decision Making MDM Narrative: -my interpretation of labs: Hematology baseline, chemistry shows a sodium of 127 with a glucose 451, corrected sodium is 135. Urinalysis shows a large amount of leukocyte esterase and white blood cell counts with +4 bacteria and squamous epithelial cells. Comparing patient's previous urinalysis, patient has had similar looking UAs without growing bacteria. Patient does not have UTI symptoms, antibiotics not indicated at this time. -after IV fluids and insulin, patient's glucose 250. -patient states that when she checks her glucose at home, for several weeks, it has read as ?high. Patient states that she is very compliant with her medication. -patient instructed to increase lispro from 8 units to 10 units t.i.d. and Tresiba to 43 units b.i.d., currently taking 40. Patient agrees with plan and will follow-up with PCP. Differential Diagnosis Differential Diagnoses: The differential diagnosis associated with the presentation includes (Hyperglycemia) Admission/Observation Consideration of admission/observation: Escalation of care including admission/observation considered (Given patient's elevated glucose, admission/observation in the hospital was considered) Lab Data MDM Lab Attestation statement: I reviewed the patient's lab results. 12/16/23 16:54 12/16/23 17:24 Labs: Lab Results 12/16/23 12/16/23 12/16/23 Range/Units 16:54 16:58 17:24 WBC 11.7 H (4.8-10.8) X10*3/uL RBC 5.41 (4.20-5.50) X10*6/uL Hgb 14.9 (12.0-16.0) g/dl Hct 43.9 (37.0-47.0) % MCV 81.1 (80.0-98.0) fL MCH 27.5 (27.0-33.0) pg MCHC 33.9 (31.0-35.0) g/dl RDW 13.1 (11.0-16.0) % Plt Count 114 L D (160-400) X10*3/uL MPV 12.7 H (9.4-12.3) fL Immature Gran % (Auto) 0.7 H (0.0-0.4) % Neut % (Auto) 60.5 (45-73) % Lymph % (Auto) 26.8 (20-40) % Shannon % (Auto) 8.1 (2-11) % Eos % (Auto) 3.2 (0-4) % Baso % (Auto) 0.7 (0-2) % Lymph # (Auto) 3.1 (1.2-4.9) X10*3/uL Shannon # (Auto) 1.0 (0.1-1.2) X10*3/uL Eos # (Auto) 0.4 (0.0-0.4) X10*3/uL Baso # (Auto) 0.1 (0.0-0.2) X10*3/uL Abs Immat Gran (auto) 0.08 H (0.00-0.03) X10*3/uL Absolute Neuts (auto) 7.1 (2.0-8.3) x10*3/uL Absolute Nucleated RBC 0.020 H (0.0-0.012) X10*3/uL Nucleated RBC % (auto) 0.2 (0.0-0.2) /100WBC Smear Tech's Comments VERIFIED VBG pH 7.46 H (7.32-7.43) VBG pCO2 20 mmHg VBG pO2 269 mmHg VBG HCO3 14 L (22-26) mmol/L VBG O2 Saturation 100.0 % VBG Base Excess -6.0 mmol/L Sodium 127 L (135-145) mmol/L Potassium 4.6 (3.3-5.1) mmol/L Chloride 100 (96-108) mmol/L Carbon Dioxide 18 L (22-29) mmol/L Anion Gap 14 (12-20) BUN 16 (9-16) mg/dL Creatinine 1.08 (0.5-1.4) mg/dL Estim Creat Clear Calc 68.0 Estimated GFR 53 POC Glucose (60-115) mg/dL Random Glucose 451 H* (60-115) mg/dL Calcium 9.3 (8.4-10.2) mg/dL Magnesium 1.6 (1.6-2.6) mg/dL Total Bilirubin 0.3 (0.0-1.0) mg/dL AST 35 H (5-31) U/L ALT 36 H (0-31) U/L Alkaline Phosphatase 154 H (39-117) U/L Total Protein 7.2 (6.5-8.0) g/dL Albumin 3.9 (3.5-5.0) g/dL Beta-Hydroxybutyrate 0.04 (0.02-0.27) mmol/L Urine Color Urine Appearance Urine pH (5.0-9.0) Ur Specific Aldrich (1.005-1.025) Urine Protein (Neg-Trace) mg/dL Urine Glucose (UA) (Negative) mg/dL Urine Ketones (Negative) mg/dL Urine Blood (Negative) Urine Nitrite (Negative) Ur Leukocyte Esterase (Negative) Urine RBC (0-2) /HPF Urine WBC (0-5) /HPF Ur Squamous Epith Cells (0-2) /HPF Urine Bacteria (None Seen) Hyaline Casts (0-2) /LPF Urine Yeast 12/16/23 12/16/23 12/16/23 Range/Units 20:15 21:47 23:17 WBC (4.8-10.8) X10*3/uL RBC (4.20-5.50) X10*6/uL Hgb (12.0-16.0) g/dl Hct (37.0-47.0) % MCV (80.0-98.0) fL MCH (27.0-33.0) pg MCHC (31.0-35.0) g/dl RDW (11.0-16.0) % Plt Count (160-400) X10*3/uL MPV (9.4-12.3) fL Immature Gran % (Auto) (0.0-0.4) % Neut % (Auto) (45-73) % Lymph % (Auto) (20-40) % Shannon % (Auto) (2-11) % Eos % (Auto) (0-4) % Baso % (Auto) (0-2) % Lymph # (Auto) (1.2-4.9) X10*3/uL Shannon # (Auto) (0.1-1.2) X10*3/uL Eos # (Auto) (0.0-0.4) X10*3/uL Baso # (Auto) (0.0-0.2) X10*3/uL Abs Immat Gran (auto) (0.00-0.03) X10*3/uL Absolute Neuts (auto) (2.0-8.3) x10*3/uL Absolute Nucleated RBC (0.0-0.012) X10*3/uL Nucleated RBC % (auto) (0.0-0.2) /100WBC Smear Tech's Comments VBG pH (7.32-7.43) VBG pCO2 mmHg VBG pO2 mmHg VBG HCO3 (22-26) mmol/L VBG O2 Saturation % VBG Base Excess mmol/L Sodium (135-145) mmol/L Potassium (3.3-5.1) mmol/L Chloride (96-108) mmol/L Carbon Dioxide (22-29) mmol/L Anion Gap (12-20) BUN (9-16) mg/dL Creatinine (0.5-1.4) mg/dL Estim Creat Clear Calc Estimated GFR POC Glucose 326 H 250 H (60-115) mg/dL Random Glucose (60-115) mg/dL Calcium (8.4-10.2) mg/dL Magnesium (1.6-2.6) mg/dL Total Bilirubin (0.0-1.0) mg/dL AST (5-31) U/L ALT (0-31) U/L Alkaline Phosphatase (39-117) U/L Total Protein (6.5-8.0) g/dL Albumin (3.5-5.0) g/dL Beta-Hydroxybutyrate (0.02-0.27) mmol/L Urine Color Yellow Urine Appearance Clear Urine pH 6.5 (5.0-9.0) Ur Specific Aldrich <= 1.005 (1.005-1.025) Urine Protein Negative (Neg-Trace) mg/dL Urine Glucose (UA) 250 H (Negative) mg/dL Urine Ketones Negative (Negative) mg/dL Urine Blood Negative (Negative) Urine Nitrite Negative (Negative) Ur Leukocyte Esterase Large (3+) H (Negative) Urine RBC 0-2 (0-2) /HPF Urine WBC >50 H (0-5) /HPF Ur Squamous Epith Cells 3-5 (0-2) /HPF Urine Bacteria 4+ (None Seen) Hyaline Casts 0-2 (0-2) /LPF Urine Yeast Present Critical Care Time Critical Care Time Critical Care Time: Yes Total Critical Care Time: 45 Attestation: I have personally provided critical care time. Time includes review of lab data, radiology results, discussion with consultants, and monitoring for potential decompensation. Intervention performed as documented. Discharge Plan Discharge Clinical Impression: Acute hyperglycemia Patient Disposition: Home, Self-Care Instructions: Diabetic Hyperglycemia (ED) Additional Instructions: Please increase your insulin is brought to 10 units 3 times a day and please increase Tresiba to 43 units daily. Please follow-up with your primary care physician tomorrow. If you have any worsening or new symptoms, please return to the emergency room or call 911 Prescriptions: New GlucaGen HypoKit 1 mg recon soln 1 mg subcut Q20M PRN (Reason: hypoglycemia) Qty: 1 0RF Rx Instructions: until target blood sugar attained No Action cefuroxime axetil 250 mg tablet 250 mg PO BID 7 Days Qty: 14 0RF cyclobenzaprine 10 mg tablet 10 mg PO TID PRN (Reason: muscle spasm) Qty: 10 0RF lidocaine 5 % adhesive patch,medicated 1 patch topical DAILY Qty: 15 0RF Rx Instructions: leave on most painful area for up to 12 hrs enalapril maleate 10 mg tablet 1 tab PO DAILY@1300 clonidine HCl 0.3 mg tablet 1 tab PO BEDTIME omeprazole 40 mg capsule,delayed release(DR/EC) 1 cap PO DAILY@0630 prazosin 5 mg capsule 1 cap PO BEDTIME lorazepam 2 mg tablet 1 tab PO BID PRN (Reason: Anxiety) trazodone 150 mg tablet 1 tab PO BEDTIME montelukast 10 mg tablet 1 tab PO DAILY ziprasidone HCl 40 mg capsule 1 cap PO BID paroxetine HCl 40 mg tablet 1 tab PO DAILY topiramate 100 mg tablet 1.5 tab PO BID hydroxyzine pamoate 25 mg capsule 1 cap PO BEDTIME insulin lispro 100 unit/mL insulin pen 28 unit subcut BID rosuvastatin 5 mg tablet 1 tab PO BEDTIME metoprolol tartrate 25 mg tablet 1 tab PO BID Belsomra 20 mg tablet 1 tab PO BEDTIME PRN (Reason: Sleep) Trulicity 1.5 mg/0.5 mL pen injector 1.5 mg subcut FR cefuroxime axetil 500 mg tablet 500 mg PO BID 7 Days Qty: 14 0RF tramadol 50 mg tablet 50 mg PO Q6H PRN (Reason: pain) Qty: 20 0RF nitrofurantoin monohyd/m-cryst [Macrobid] 100 mg capsule 100 mg PO BID 7 Days Qty: 14 0RF Rx Instructions: must administer with a meal/food nitrofurantoin monohyd/m-cryst [Macrobid] 100 mg capsule 100 mg PO BID 7 Days Qty: 14 0RF Rx Instructions: must administer with a meal/food Lantus U-100 Insulin 100 unit/mL solution 72 unit subcut DAILY@1300 Print Language: Tajik
[2023-12-16 17:05] LABS: VBG HCO3 14 mmol/L (22-26); VBG pCO2 20 mmHg; VBG pH 7.46 (7.32-7.43); VBG pO2 269 mmHg
[2023-12-16 17:11] LABS: Venous Blood Gas Refer to POC result
[2023-12-16 17:12] LABS: Basophils Absolute Auto 0.1 X10*3/uL (0.0-0.2); Basophils Percent Auto 0.7 % (0-2); Eosinophils Absolute Auto 0.4 X10*3/uL (0.0-0.4); Eosinophils Percent Auto 3.2 % (0-4); Hematocrit 43.9 % (37.0-47.0); Hemoglobin 14.9 g/dl (12.0-16.0); Imm Gran Abs Auto 0.08 X10*3/uL (0.00-0.03); Imm Gran Pct Auto 0.7 % (0.0-0.4); Lymphocytes Absolute Auto 3.1 X10*3/uL (1.2-4.9); Lymphocytes Percent Auto 26.8 % (20-40); MANUAL DIFF FLAG SCAN; Mean Corpuscular HGB Conc 33.9 g/dl (31.0-35.0); Mean Corpuscular Hemoglobin 27.5 pg (27.0-33.0); Mean Corpuscular Volume 81.1 fL (80.0-98.0); Mean Platelet Volume 12.7 fL (9.4-12.3); Monocytes Percent Auto 8.1 % (2-11); NRBC Pct Auto 0.2 /100WBC (0.0-0.2); Neutrophils Absolute Auto 7.1 x10*3/uL (2.0-8.3); Neutrophils Percent Auto 60.5 % (45-73); PLT CLUMP 1; Red Blood Count 5.41 X10*6/uL (4.20-5.50); Red Cell Distribution Width 13.1 % (11.0-16.0); SCAN SMEAR FLAG 1
[2023-12-16 17:24] LABS: Platelet Count 114 X10*3/uL (160-400); SLIDE REVIEW VERIFIED; White Blood Count 11.7 X10*3/uL (4.8-10.8)
[2023-12-16 18:01] LABS: Alanine Aminotransferase 36 U/L (0-31); Albumin Level 3.9 g/dL (3.5-5.0); Alkaline Phosphatase 154 U/L (39-117); Anion Gap 14 (12-20); Aspartate Amino Transferase 35 U/L (5-31); Bilirubin Total 0.3 mg/dL (0.0-1.0); Blood Urea Nitrogen 16 mg/dL (9-16); Calcium 9.3 mg/dL (8.4-10.2); Carbon Dioxide 18 mmol/L (22-29); Chloride 100 mmol/L (96-108); Estimated Glomerular Filt Rate 53; Glucose Random 451 mg/dL (60-115); Magnesium 1.6 mg/dL (1.6-2.6); Potassium 4.6 mmol/L (3.3-5.1); Sodium 127 mmol/L (135-145); Total Protein 7.2 g/dL (6.5-8.0)
[2023-12-16 18:09] LABS: Beta-Hydroxybutyrate 0.04 mmol/L (0.02-0.27)
[2023-12-16 20:24] LABS: Glucose, Whole Blood 326 mg/dL (60-115)
--- NOTE | 2023-12-16 21:37 | PC.NURSE ---
re: late medication administration- this nurse in addition to one other nurse attempted to obtain IV access, no access at this time.
[2023-12-16 21:57] LABS: Appearance Urine Clear; Color Urine Yellow; Glucose Urine UA 250 mg/dL (Negative); Leukocyte Esterase Urine Large (3+) (Negative); Nitrite Urine Negative (Negative); PH 6.5 (5.0-9.0); Specific Gravity - Urine <= 1.005 (1.005-1.025); UMIC TRIGGER UACC YES; Urine Blood Negative (Negative); Urine Ketones Negative (Negative); Urine Protein Negative (Neg-Trace)
[2023-12-16 22:14] LABS: Bacteria Urine 4+ (None Seen); Hyaline Casts Urine 0-2 /LPF (0-2); RBC Urine 0-2 /HPF (0-2); UACC Culture Trigger YES; WBC Urine >50 /HPF (0-5)
[2023-12-16] MEDS: 0.9 % Sodium Chloride 1,000 ML 999 ML IVCONT ×2 (22:15→22:43)
[2023-12-16] MEDS: Insulin Regular, Human 100 UNIT/ML 3 ML VIAL IVPUSH (22:42)
[2023-12-16 23:21] LABS: Glucose, Whole Blood 250 mg/dL (60-115)
[2023-12-16 23:27] VITALS: BP 104/81; PULSE 96; RESP 20; TEMP 36.9; O2SAT 97
[2023-12-17 00:22] VITALS: BP 104/81; PULSE 96; RESP 20; TEMP 36.9; O2SAT 97
== END 2023-12-17 00:23 | disposition home or self-care (01) ==
PROVIDERS: Physician Assistant; Emergency Provider Emergency Medicine
DX: E11.65 Type 2 diabetes mellitus with hyperglycemia (principal); R11.0 Nausea; Z79.4 Long term (current) use of insulin; Z79.899 Other long term (current) drug therapy
CPT/HCPCS: 36415; 80053; 81001; 81003; 82010; 82803; 82947; 83735; 85025; 87086; 87088; 87186; 96361; 96374; 99284

== ENCOUNTER 2023-12-23 10:53 | Emergency (ER) | payer MEDICAID, SELFPAY ==
--- NOTE | ~2023-12-23 | XR_ITS ---
EXAMINATION: XR CHEST CLINICAL INFORMATION: Cough COMPARISON: Previous chest x-ray most recent August 2022 TECHNIQUE: Frontal view of the chest was obtained. FINDINGS: No significant abnormality is noted involving the heart, lungs, mediastinum, bony thorax or soft tissues. XR/XR chest 1V IMPRESSION: Unremarkable examination.
[2023-12-23 11:07] VITALS: BP 162/74; PULSE 97; O2SAT 100
--- NOTE | 2023-12-23 11:09 | ECG_ITS ---
Test Reason : HYPERGLYCEMIC Blood Pressure : / mmHG Vent. Rate : 100 BPM Atrial Rate : 100 BPM P-R Int : 170 ms QRS Dur : 092 ms QT Int : 384 ms P-R-T Axes : 019 002 004 degrees QTc Int : 495 ms Normal sinus rhythm Nonspecific T wave abnormality Abnormal ECG When compared with ECG of 04-SEP-2022 12:49, Vent. rate has increased BY 42 BPM Nonspecific T wave abnormality now evident in Anterolateral leads Referred By: Generic ED Physician Electronically Signed By:Aram Bhatti
[2023-12-23 11:18] VITALS: BP 95/50; PULSE 102; RESP 16; O2SAT 97; BMI 37.9
[2023-12-23 11:28] LABS: Glucose, Whole Blood 371 mg/dL (60-115)
--- NOTE | 2023-12-23 12:39 | PC.NURSE ---
Delay in labs/iv fluids, patient tough stick RN attempt x 3, needs US. US trained RN to look for line/labs
[2023-12-23 13:28] VITALS: BP 107/68; PULSE 98
[2023-12-23 13:28] LABS: Influenza A PCR NEGATIVE (Negative); Influenza B PCR NEGATIVE (Negative); Resp Syncy Virus RNA Qual PCR NEGATIVE (Negative); SARS COV2 PCR INHOUSE NEGATIVE (Negative)
--- NOTE | 2023-12-23 13:39 | PC.NURSE ---
Nursing still attempting US IV access at this time.
[2023-12-23 13:50] LABS: MANUAL DIFF FLAG NO
--- NOTE | 2023-12-23 13:52 | ED.GENADULT ---
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 Related Data Home Medications ?Medication ?Instructions ?Recorded ?Confirmed insulin glargine 100 unit/mL 72 unit subcut DAILY@1300 07/22/20 03/29/22 subcutaneous solution (Lantus U-100 Insulin) clonidine HCl 0.3 mg tablet 1 tab PO BEDTIME 03/29/22 03/29/22 dulaglutide 1.5 mg/0.5 mL 1.5 mg subcut FR 03/29/22 03/29/22 subcutaneous pen injector (Trulicity) enalapril maleate 10 mg tablet 1 tab PO DAILY@1300 03/29/22 03/29/22 hydroxyzine pamoate 25 mg capsule 1 cap PO BEDTIME 03/29/22 03/29/22 insulin lispro 100 unit/mL 28 unit subcut BID 03/29/22 03/29/22 subcutaneous pen lorazepam 2 mg tablet 1 tab PO BID PRN Anxiety 03/29/22 03/29/22 metoprolol tartrate 25 mg tablet 1 tab PO BID 03/29/22 03/29/22 montelukast 10 mg tablet 1 tab PO DAILY 03/29/22 03/29/22 omeprazole 40 mg capsule,delayed 1 cap PO DAILY@0630 03/29/22 03/29/22 release paroxetine HCl 40 mg tablet 1 tab PO DAILY 03/29/22 03/29/22 prazosin 5 mg capsule 1 cap PO BEDTIME 03/29/22 03/29/22 rosuvastatin 5 mg tablet 1 tab PO BEDTIME 03/29/22 03/29/22 suvorexant 20 mg tablet (Belsomra) 1 tab PO BEDTIME PRN Sleep 03/29/22 03/29/22 topiramate 100 mg tablet 1.5 tab PO BID 03/29/22 03/29/22 trazodone 150 mg tablet 1 tab PO BEDTIME 03/29/22 03/29/22 ziprasidone HCl 40 mg capsule 1 cap PO BID 03/29/22 03/29/22 Previous Rx's ?Medication ?Instructions ?Recorded cefuroxime axetil 500 mg tablet 500 mg PO BID 7 days #14 tabs 03/30/22 cefuroxime axetil 250 mg tablet 250 mg PO BID 7 days #14 tabs 05/18/22 cyclobenzaprine 10 mg tablet 10 mg PO TID PRN muscle spasm #10 05/18/22 tabs lidocaine 5 % topical patch 1 patch topical DAILY #15 ea 05/18/22 tramadol 50 mg tablet 50 mg PO Q6H PRN pain #20 tabs 08/21/22 nitrofurantoin 100 mg PO BID 7 days #14 caps 08/27/22 monohydrate/macrocrystals 100 mg capsule (Macrobid) nitrofurantoin 100 mg PO BID 7 days #14 caps 08/27/22 monohydrate/macrocrystals 100 mg capsule (Macrobid) glucagon 1 mg solution for 1 mg subcut Q20M PRN hypoglycemia 12/16/23 injection (GlucaGen HypoKit) #1 ea cefdinir 300 mg capsule 300 mg PO BID 7 days #14 caps 12/23/23 Allergies Allergy/AdvReac Type Severity Reaction Status Date / Time oxycodone [From PERCOCET] Allergy Unknown N/V Verified 12/16/23 16:06 tramadol Allergy Unknown Unknown Verified 12/16/23 16:06 metformin Allergy Unknown Verified 12/23/23 11:20 Review of Systems Review of Systems: Pertinent positives and negatives as stated in [facility] Past Medical History Source: nursing notes reviewed Medical History Migraines Diabetes Chronic asthma Hypertension Fibromyalgia Surgical History History of carpal tunnel release Hx of breast reduction, elective Social History Social History Alcohol intake: never Patient Tobacco Use Status: Never used Tobacco Smoked in Last 30 Days: No Use of substances other than those prescribed or required for medical reasons: No Advance Directives: Yes Advance Directives on File: Yes Advance Directives Date on File: 03/29/22 Do you have a plan to hurt others: No Plan Current occupational status: unemployed Current occupation: right handed Physical Exam ED Vital Signs: Vital Signs - 24 hr 12/23/23 11:18 12/23/23 13:28 12/23/23 14:44 Temperature 98.8 F Pulse Rate 102 H 98 102 H Respiratory Rate 16 18 Blood Pressure 95/50 L 107/68 101/72 Pulse Oximetry 97 96 Oxygen Delivery Method Room Air Room Air BMI result Body Mass Index 37.9 VITAL SIGNS: Reviewed. GENERAL: Elevated BMI, Well developed, well nourished, in no acute distress. HEAD: Normocephalic/atraumatic EYES: PERRLA, EOMI EARS: Ext canals without abnormality NOSE: Nares patent bilateral OROPHARYNX: no oral lesions noted, posterior pharynx clear, dry mucosa NECK: Supple, no adenopathy LUNGS: Normal breath sounds. No adventitious sounds or accessory muscle use. SpO2<97> CARDIOVASCULAR: Regular rate and rhythm without noted murmurs ABDOMEN: Soft, non-tender, non-distended with bowel sounds. MUSCULOSKELETAL: No tenderness, deformities, or effusions noted on gross inspection. EXTREMITIES: No cyanosis, clubbing or edema. SKIN: Inspection of the skin reveals no rashes NEUROLOGIC: Alert and oriented x 4. Strength and sensation to light touch were grossly intact x 4. Medications Administered Discontinued Medications Generic Name Dose Route Start Last Admin Trade Name Freq PRN Reason Stop Dose Admin Sodium Chloride 1,000 mls @ 999 mls/hr 12/23/23 11:45 12/23/23 15:00 Ns IV 12/23/23 12:45 Infused .Q1H1M BRIANNA Infusion Sodium Chloride 500 mls @ 999 mls/hr 12/23/23 12:45 12/23/23 15:41 Ns IV 12/23/23 13:15 999 mls/hr .Q31M BRIANNA Administration Piperacillin Sod/Tazobactam 50 mls @ 100 mls/hr 12/23/23 13:56 12/23/23 15:30 Sod 3.375 gm/ Sodium Chloride IV 12/23/23 14:25 Infused ONCE ONE Infusion Medical Decision Making Medical Decision Making [facility] Narrative: 1230: 53-year-old female with history and clinical presentation, DDX: Viral illness, dehydration, UTI 1345: Significant delay in gaining IV access, hematologic indices significant for leukocytosis, lactic acid blood cultures have been sent down, I ordered antibiotics. I reviewed all investigations and hematologic indices significant for leukocytosis without anemia and a chronic thrombocytopenia. Chemistries indices demonstrate hyperglycemia without evidence of DKA or HHS, there is no SERINA patient has a mild lactic acidosis which was treated with 1 L of IV fluids, noted low magnesium which was repleted with 2 g of magnesium sulfate, liver enzymes are otherwise chronically detectable without any acute changes, high sensitivity troponin is undetectable. Urinalysis is significant for nitrite and leukocyte esterase positivity with the presence WBCs and bacteria. Patient did receive the antibiotics. Chest x-ray negative for infiltrate or venous congestion. 1608: I re-evaluated the patient who states that she is feeling much better, we will p.o. challenge and if tolerated she will be discharged home on 1 week of antibiotics to cover suspected pyelonephritis. Differential Diagnosis Differential Diagnoses: The differential diagnosis associated with the presentation includes Please see the discussion above Admission/Observation Consideration of admission/observation: Escalation of care including admission/observation considered Please see the discussion above Lab Data MDM Lab Attestation statement: I reviewed the patient's lab results. Please see the discussion above 12/23/23 13:46 12/23/23 14:40 Labs: Lab Results 12/23/23 12/23/23 12/23/23 Range/Units 11:24 12:44 13:46 WBC 15.6 H (4.8-10.8) X10*3/uL RBC 5.23 (4.20-5.50) X10*6/uL Hgb 14.3 (12.0-16.0) g/dl Hct 42.7 (37.0-47.0) % MCV 81.6 (80.0-98.0) fL MCH 27.3 (27.0-33.0) pg MCHC 33.5 (31.0-35.0) g/dl RDW 13.2 (11.0-16.0) % Plt Count 132 L (160-400) X10*3/uL MPV 12.9 H (9.4-12.3) fL Immature Gran % (Auto) 0.6 H (0.0-0.4) % Neut % (Auto) 72.4 (45-73) % Lymph % (Auto) 15.6 L (20-40) % [place] % (Auto) 9.0 (2-11) % Eos % (Auto) 2.0 (0-4) % Baso % (Auto) 0.4 (0-2) % Lymph # (Auto) 2.4 (1.2-4.9) X10*3/uL [place] # (Auto) 1.4 H (0.1-1.2) X10*3/uL Eos # (Auto) 0.3 (0.0-0.4) X10*3/uL Baso # (Auto) 0.1 (0.0-0.2) X10*3/uL Abs Immat Gran (auto) 0.09 H (0.00-0.03) X10*3/uL Absolute Neuts (auto) 11.3 H (2.0-8.3) x10*3/uL Absolute Nucleated RBC 0.000 (0.0-0.012) X10*3/uL Nucleated RBC % (auto) 0.0 (0.0-0.2) /100WBC Sodium (135-145) mmol/L Potassium (3.3-5.1) mmol/L Chloride (96-108) mmol/L Carbon Dioxide (22-29) mmol/L Anion Gap (12-20) BUN (9-16) mg/dL Creatinine (0.5-1.4) mg/dL Estim Creat Clear Calc Estimated GFR POC Glucose 371 H* (60-115) mg/dL Random Glucose (60-115) mg/dL Lactic Acid 2.1 H* (0.5-2.0) mmol/L Calcium (8.4-10.2) mg/dL Magnesium (1.6-2.6) mg/dL Total Bilirubin (0.0-1.0) mg/dL AST (5-31) U/L ALT (0-31) U/L Alkaline Phosphatase (39-117) U/L Troponin I High Sens < 2.7 (<3.5-17.0) ng/L Total Protein (6.5-8.0) g/dL Albumin (3.5-5.0) g/dL Beta-Hydroxybutyrate (0.02-0.27) mmol/L Urine Color Urine Appearance Urine pH (5.0-9.0) Ur Specific [place] (1.005-1.025) Urine Protein (Neg-Trace) mg/dL Urine Glucose (UA) (Negative) mg/dL Urine Ketones (Negative) mg/dL Urine Blood (Negative) Urine Nitrite (Negative) Ur Leukocyte Esterase (Negative) Urine RBC (0-2) /HPF Urine WBC (0-5) /HPF Ur Squamous Epith Cells (0-2) /HPF Urine Bacteria (None Seen) Hyaline Casts (0-2) /LPF Influenza Type A (PCR) NEGATIVE (Negative) Influenza Type B (PCR) NEGATIVE (Negative) RSV RNA Qual (PCR) NEGATIVE (Negative) SARS-CoV-2 RNA (RT-PCR) NEGATIVE (Negative) 12/23/23 12/23/23 Range/Units 14:40 15:48 WBC (4.8-10.8) X10*3/uL RBC (4.20-5.50) X10*6/uL Hgb (12.0-16.0) g/dl Hct (37.0-47.0) % MCV (80.0-98.0) fL MCH (27.0-33.0) pg MCHC (31.0-35.0) g/dl RDW (11.0-16.0) % Plt Count (160-400) X10*3/uL MPV (9.4-12.3) fL Immature Gran % (Auto) (0.0-0.4) % Neut % (Auto) (45-73) % Lymph % (Auto) (20-40) % [place] % (Auto) (2-11) % Eos % (Auto) (0-4) % Baso % (Auto) (0-2) % Lymph # (Auto) (1.2-4.9) X10*3/uL [place] # (Auto) (0.1-1.2) X10*3/uL Eos # (Auto) (0.0-0.4) X10*3/uL Baso # (Auto) (0.0-0.2) X10*3/uL Abs Immat Gran (auto) (0.00-0.03) X10*3/uL Absolute Neuts (auto) (2.0-8.3) x10*3/uL Absolute Nucleated RBC (0.0-0.012) X10*3/uL Nucleated RBC % (auto) (0.0-0.2) /100WBC Sodium 137 (135-145) mmol/L Potassium 4.7 (3.3-5.1) mmol/L Chloride 104 (96-108) mmol/L Carbon Dioxide 21 L (22-29) mmol/L Anion Gap 17 (12-20) BUN 10 (9-16) mg/dL Creatinine 0.92 (0.5-1.4) mg/dL Estim Creat Clear Calc 80.4 Estimated GFR > 60 POC Glucose (60-115) mg/dL Random Glucose 370 H* (60-115) mg/dL Lactic Acid (0.5-2.0) mmol/L Calcium 9.4 (8.4-10.2) mg/dL Magnesium 1.5 L (1.6-2.6) mg/dL Total Bilirubin 0.6 (0.0-1.0) mg/dL AST 36 H (5-31) U/L ALT 37 H (0-31) U/L Alkaline Phosphatase 150 H (39-117) U/L Troponin I High Sens (<3.5-17.0) ng/L Total Protein 7.3 (6.5-8.0) g/dL Albumin 3.6 (3.5-5.0) g/dL Beta-Hydroxybutyrate 0.14 (0.02-0.27) mmol/L Urine Color Yellow Urine Appearance Cloudy Urine pH 8.0 (5.0-9.0) Ur Specific [place] >= 1.030 H (1.005-1.025) Urine Protein 30 (1+) H (Neg-Trace) mg/dL Urine Glucose (UA) >=1000 H (Negative) mg/dL Urine Ketones Negative (Negative) mg/dL Urine Blood Small (1+) H (Negative) Urine Nitrite Positive H (Negative) Ur Leukocyte Esterase Small (1+) H (Negative) Urine RBC >20 H (0-2) /HPF Urine WBC >50 H (0-5) /HPF Ur Squamous Epith Cells 0-2 (0-2) /HPF Urine Bacteria 4+ (None Seen) Hyaline Casts 3-5 (0-2) /LPF Influenza Type A (PCR) (Negative) Influenza Type B (PCR) (Negative) RSV RNA Qual (PCR) (Negative) SARS-CoV-2 RNA (RT-PCR) (Negative) Independent Interpretation I performed an independent interpretation of an: EKG Interpretation: Normal sinus rhythm, HR-100, no STEMI, IN/QRS is within normal limits with a mildly prolonged QTC which will likely correct after administration of magnesium sulfate. Radiology Impression Discussion of test interpretation with radiology: I have reviewed the radiologist's reading. Radiologist Impression: Please see the discussion above External Record Review External record reviewed: Outpatient record, Prior outpatient labs and Prior outpatient radiology Chronic Conditions Patient?s care impacted by: Diabetes and Hypertension Critical Care Time Critical Care Time Critical Care Time: Yes Total Critical Care Time: 60 Attestation: I personally attest to this time spent taking care of the patient. Discharge Plan Discharge Clinical Impression: Pyelonephritis, Hyperglycemia due to diabetes mellitus Patient Disposition: Home, Self-Care Instructions: Kidney Infection (ED), Diabetic Hyperglycemia (ED) Additional Instructions: 1. Resume all home medications as prescribed and continue to drink plenty of water. 2. Complete all antibiotics as prescribed. 3. Follow-up with your primary care doctor in the next 1-2 days. Do not hesitate to return to the emergency room should you have any worsening of your symptoms. Prescriptions: New cefdinir 300 mg capsule 300 mg PO BID 7 Days Qty: 14 0RF No Action cefuroxime axetil 250 mg tablet 250 mg PO BID 7 Days Qty: 14 0RF cyclobenzaprine 10 mg tablet 10 mg PO TID PRN (Reason: muscle spasm) Qty: 10 0RF lidocaine 5 % adhesive patch,medicated 1 patch topical DAILY Qty: 15 0RF Rx Instructions: leave on most painful area for up to 12 hrs enalapril maleate 10 mg tablet 1 tab PO DAILY@1300 clonidine HCl 0.3 mg tablet 1 tab PO BEDTIME omeprazole 40 mg capsule,delayed release(DR/EC) 1 cap PO DAILY@0630 prazosin 5 mg capsule 1 cap PO BEDTIME lorazepam 2 mg tablet 1 tab PO BID PRN (Reason: Anxiety) trazodone 150 mg tablet 1 tab PO BEDTIME montelukast 10 mg tablet 1 tab PO DAILY ziprasidone HCl 40 mg capsule 1 cap PO BID paroxetine HCl 40 mg tablet 1 tab PO DAILY topiramate 100 mg tablet 1.5 tab PO BID hydroxyzine pamoate 25 mg capsule 1 cap PO BEDTIME insulin lispro 100 unit/mL insulin pen 28 unit subcut BID rosuvastatin 5 mg tablet 1 tab PO BEDTIME metoprolol tartrate 25 mg tablet 1 tab PO BID Belsomra 20 mg tablet 1 tab PO BEDTIME PRN (Reason: Sleep) Trulicity 1.5 mg/0.5 mL pen injector 1.5 mg subcut FR cefuroxime axetil 500 mg tablet 500 mg PO BID 7 Days Qty: 14 0RF tramadol 50 mg tablet 50 mg PO Q6H PRN (Reason: pain) Qty: 20 0RF nitrofurantoin monohyd/m-cryst [Macrobid] 100 mg capsule 100 mg PO BID 7 Days Qty: 14 0RF Rx Instructions: must administer with a meal/food nitrofurantoin monohyd/m-cryst [Macrobid] 100 mg capsule 100 mg PO BID 7 Days Qty: 14 0RF Rx Instructions: must administer with a meal/food GlucaGen HypoKit 1 mg recon soln 1 mg subcut Q20M PRN (Reason: hypoglycemia) Qty: 1 0RF Rx Instructions: until target blood sugar attained Lantus U-100 Insulin 100 unit/mL solution 72 unit subcut DAILY@1300 Print Language: Montserratian
[2023-12-23] MEDS: 0.9 % Sodium Chloride 1,000 ML 999 ML IV (13:54)
[2023-12-23 13:55] LABS: Basophils Absolute Auto 0.1 X10*3/uL (0.0-0.2); Basophils Percent Auto 0.4 % (0-2); Eosinophils Absolute Auto 0.3 X10*3/uL (0.0-0.4); Hematocrit 42.7 % (37.0-47.0); Hemoglobin 14.3 g/dl (12.0-16.0); Imm Gran Abs Auto 0.09 X10*3/uL (0.00-0.03); Imm Gran Pct Auto 0.6 % (0.0-0.4); Lymphocytes Absolute Auto 2.4 X10*3/uL (1.2-4.9); Lymphocytes Percent Auto 15.6 % (20-40); Mean Corpuscular HGB Conc 33.5 g/dl (31.0-35.0); Mean Corpuscular Hemoglobin 27.3 pg (27.0-33.0); Mean Corpuscular Volume 81.6 fL (80.0-98.0); Mean Platelet Volume 12.9 fL (9.4-12.3); Monocytes Absolute Auto 1.4 X10*3/uL (0.1-1.2); Neutrophils Absolute Auto 11.3 x10*3/uL (2.0-8.3); Neutrophils Percent Auto 72.4 % (45-73); Platelet Count 132 X10*3/uL (160-400); Red Blood Count 5.23 X10*6/uL (4.20-5.50); Red Cell Distribution Width 13.2 % (11.0-16.0); White Blood Count 15.6 X10*3/uL (4.8-10.8)
[2023-12-23 14:07] LABS: Lactic Acid 2.1 mmol/L (0.5-2.0)
[2023-12-23 14:15] LABS: Troponin-I High Sensitivity < 2.7 ng/L (<3.5-17.0)
[2023-12-23 14:44] VITALS: BP 101/72; PULSE 102; RESP 18; TEMP 37.1; O2SAT 96
[2023-12-23] MEDS: Piperacillin Sodium/Tazobactam 3.375 GM in 0.9 % Sodium Chloride 50 ML IV (14:49)
--- NOTE | 2023-12-23 14:57 | PC.NURSE ---
US line successfully gotten, but postioinal, second set of BC obtained, delay in hanging abx/additional fluids d/t lack of IV access.
[2023-12-23 15:03] LABS: Beta-Hydroxybutyrate 0.14 mmol/L (0.02-0.27)
[2023-12-23 15:19] LABS: Alanine Aminotransferase 37 U/L (0-31); Albumin Level 3.6 g/dL (3.5-5.0); Alkaline Phosphatase 150 U/L (39-117); Anion Gap 17 (12-20); Aspartate Amino Transferase 36 U/L (5-31); Bilirubin Total 0.6 mg/dL (0.0-1.0); Blood Urea Nitrogen 10 mg/dL (9-16); Calcium 9.4 mg/dL (8.4-10.2); Carbon Dioxide 21 mmol/L (22-29); Chloride 104 mmol/L (96-108); Creatinine Clr Calc Pharmacy 80.4; Estimated Glomerular Filt Rate > 60; Glucose Random 370 mg/dL (60-115); Magnesium 1.5 mg/dL (1.6-2.6); Potassium 4.7 mmol/L (3.3-5.1); Sodium 137 mmol/L (135-145); Total Protein 7.3 g/dL (6.5-8.0)
[2023-12-23] MEDS: 0.9 % Sodium Chloride 500 ML 999 ML IV (15:41)
[2023-12-23 15:48] LABS: Reflex Lactate? Lactic Acid Added
[2023-12-23 15:59] LABS: Appearance Urine Cloudy; Color Urine Yellow; Glucose Urine UA >=1000 mg/dL (Negative); Leukocyte Esterase Urine Small (1+) (Negative); Nitrite Urine Positive (Negative); Specific Gravity - Urine >= 1.030 (1.005-1.025); UMIC TRIGGER UACC YES; Urine Blood Small (1+) (Negative); Urine Ketones Negative (Negative); Urine Protein 30 (1+) mg/dL (Neg-Trace)
[2023-12-23 16:02] LABS: Bacteria Urine 4+ (None Seen); RBC Urine >20 /HPF (0-2); Squamous Epithelial Cell Urine 0-2 /HPF (0-2); UACC Culture Trigger YES; WBC Urine >50 /HPF (0-5)
[2023-12-23] MEDS: Magnesium Sulfate/H2O 2 GM/50 ML PIGGYBACK IV (16:15)
[2023-12-23 17:07] VITALS: BP 108/76; PULSE 99; RESP 15; TEMP 36.9; O2SAT 98
== END 2023-12-23 17:09 | disposition home or self-care (01) ==
PROVIDERS: Physician Assistant Medical; Emergency Provider Student in an Organized Health Care Education/Training Program
DX: E11.65 Type 2 diabetes mellitus with hyperglycemia (principal); Z79.4 Long term (current) use of insulin; N12 Tubulo-interstitial nephritis, not specified as acute or chronic; R52 Pain, unspecified; I10 Essential (primary) hypertension; E11.9 Type 2 diabetes mellitus without complications
CPT/HCPCS: 0241U; 36415; 71045; 80053; 81001; 81003; 82010; 82947; 83605; 83735; 84484; 85025; 87040; 87077; 87086; 87186; 87205; 93005; 96361; 96365; 96375; 99285; J2543; J3475

== ENCOUNTER → 2023-12-23 11:09 | Outpatient (BNV) | payer MEDICAID, SELFPAY | PROVIDERS: Visit Provider Internal Medicine Cardiovascular Disease | DX: R94.31 Abnormal electrocardiogram [ECG] [EKG] (principal) | CPT/HCPCS: 93010 ==

== ENCOUNTER 2024-02-26 08:48 | Outpatient (REF) | payer MEDICAID, SELFPAY ==
--- NOTE | ~2024-02-26 | XR_ITS ---
EXAMINATION: XR ANKLE, RIGHT CLINICAL INFORMATION: Right ankle type 2 diabetes hyperglycemia, postsurgical pain. COMPARISON: None available. TECHNIQUE: AP, lateral, and mortise views of the right ankle. FINDINGS: Status post ORIF distal fibula with plate and screws transfixing previous fracture. Screw traverses the medial malleolus transfixing previous fracture. Hardware appears intact. Mild asymmetric widening along the medial aspect of the ankle mortise. Small dorsal calcaneal spur. XR/XR ankle RT min 3V IMPRESSION: 1. Status post ORIF distal fibula and medial malleolus. Hardware appears intact. 2. Mild asymmetric widening along the medial aspect of the ankle mortise.
[2024-02-26 11:52] LABS: Alanine Aminotransferase 37 U/L (0-31); Albumin Level 3.9 g/dL (3.5-5.0); Alkaline Phosphatase 129 U/L (39-117); Anion Gap 12 (12-20); Aspartate Amino Transferase 41 U/L (5-31); Bilirubin Total 0.4 mg/dL (0.0-1.0); Blood Urea Nitrogen 14 mg/dL (9-16); Calcium 9.4 mg/dL (8.4-10.2); Carbon Dioxide 20 mmol/L (22-29); Chloride 107 mmol/L (96-108); Estimated Glomerular Filt Rate 58; Glucose Random 395 mg/dL (60-115); Potassium 3.9 mmol/L (3.3-5.1); Sodium 135 mmol/L (135-145); TSH reflex Free T4 3.21 uIU/mL (0.32-4.0)
== END 2024-02-26 08:49 | disposition home or self-care (01) ==
LOC: HO.HHCL 08:48
PROVIDERS: Visit Provider Internal Medicine
DX: R53.83 Other fatigue (principal); E11.65 Type 2 diabetes mellitus with hyperglycemia; Z79.4 Long term (current) use of insulin
CPT/HCPCS: 36415; 73610; 80053; 84443

== ENCOUNTER 2024-03-27 14:58 | Outpatient (REF) | payer MEDICAID, SELFPAY ==
[2024-03-27 16:14] LABS: MANUAL DIFF FLAG NO
[2024-03-27 16:21] LABS: Basophils Absolute Auto 0.1 X10*3/uL (0.0-0.2); Basophils Percent Auto 0.5 % (0-2); Eosinophils Absolute Auto 0.4 X10*3/uL (0.0-0.4); Eosinophils Percent Auto 3.6 % (0-4); Hematocrit 43.9 % (37.0-47.0); Hemoglobin 14.5 g/dl (12.0-16.0); Imm Gran Abs Auto 0.05 X10*3/uL (0.00-0.03); Imm Gran Pct Auto 0.5 % (0.0-0.4); Lymphocytes Absolute Auto 3.1 X10*3/uL (1.2-4.9); Lymphocytes Percent Auto 28.6 % (20-40); Mean Corpuscular Hemoglobin 27.2 pg (27.0-33.0); Mean Corpuscular Volume 82.2 fL (80.0-98.0); Mean Platelet Volume 12.5 fL (9.4-12.3); Monocytes Absolute Auto 0.8 X10*3/uL (0.1-1.2); Neutrophils Absolute Auto 6.5 x10*3/uL (2.0-8.3); Neutrophils Percent Auto 59.8 % (45-73); Platelet Count 167 X10*3/uL (160-400); Red Blood Count 5.34 X10*6/uL (4.20-5.50); Red Cell Distribution Width 14.6 % (11.0-16.0); White Blood Count 10.9 X10*3/uL (4.8-10.8)
[2024-03-27 16:27] LABS: Estimated Average Glucose 280 mg/dL; Hemoglobin A1c % 11.4 % (<6.0)
[2024-03-27 16:28] LABS: D Dimer High Sensitivity 175 NG/ML
[2024-03-27 16:31] LABS: Anion Gap 12 (12-20); Blood Urea Nitrogen 15 mg/dL (9-16); Calcium 9.8 mg/dL (8.4-10.2); Carbon Dioxide 22 mmol/L (22-29); Chloride 107 mmol/L (96-108); Estimated Glomerular Filt Rate > 60; Glucose Random 302 mg/dL (60-115); Potassium 4.2 mmol/L (3.3-5.1); Sodium 137 mmol/L (135-145)
== END 2024-03-27 14:59 | disposition home or self-care (01) ==
LOC: HO.HHCL 14:58
PROVIDERS: Visit Provider General Practice
DX: E11.65 Type 2 diabetes mellitus with hyperglycemia (principal); Z79.4 Long term (current) use of insulin; R07.9 Chest pain, unspecified
CPT/HCPCS: 36415; 80048; 83036; 85025; 85379

== ENCOUNTER 2024-03-30 11:32 | Outpatient (REF) | payer MEDICAID, SELFPAY ==
--- NOTE | ~2024-03-30 | CT_ITS ---
EXAMINATION: CT CHEST WITHOUT CONTRAST CLINICAL INFORMATION: Status post fall 03/23/2024. COMPARISON: 05/18/2022 TECHNIQUE: Multidetector volumetric CT imaging of the chest was done. Axial MIP volume rendering provided. Sagittal and coronal reformatted images were obtained. This CT examination was performed using dose optimization techniques as appropriate, variously including the following: *Automated exposure control *Adjustment of mA and/or kV according to patient size (this includes techniques or standardized protocols for targeted exams where dose is matched to indication/reason for exam; i.e. extremities or head) *Use of iterative reconstruction technique DLP: 343 mGy-cm FINDINGS: LUNGS: No suspicious pulmonary nodule. No focal consolidation. Central airways are patent. MEDIASTINUM: No bulky axillary, hilar or mediastinal lymphadenopathy. Great vessels are of normal caliber. Heart size is normal. No pericardial effusion. CORONARY ARTERY CALCIFICATION: None visualized on this study. PLEURA: No pleural effusion. UPPER ABDOMEN: No adrenal mass. Bilateral renal calcifications. OSSEOUS STRUCTURES: Nondisplaced right fifth and sixth rib fractures. CT/CT chest wo IV con IMPRESSION: Nondisplaced right fifth and sixth rib fractures.
== END 2024-03-30 11:33 | disposition home or self-care (01) ==
LOC: HO.CT 11:32
PROVIDERS: Absent Provider Nurse Practitioner; PCP Nurse Practitioner; Visit Provider General Practice
DX: R07.9 Chest pain, unspecified (principal); R29.6 Repeated falls
CPT/HCPCS: 71250